=== PATIENT | female | born 1975 | race Two or more races ===

== ENCOUNTER → 2020-06-04 11:28 | Outpatient (BNVA) | payer MEDICAID, SELFPAY | PROVIDERS: PCP Internal Medicine; Referring Provider Internal Medicine; Visit Provider Hospitalist | DX: J45.909 Unspecified asthma, uncomplicated (principal); J30.9 Allergic rhinitis, unspecified; Z79.899 Other long term (current) drug therapy | CPT/HCPCS: 99214 ==

== ENCOUNTER 2020-06-10 09:16 | Outpatient (REF) | payer MEDICAID, SELFPAY ==
--- NOTE | 2020-06-10 09:30 | MR_ITS ---
EXAMINATION: MR KNEE WITHOUT CONTRAST, LEFT CLINICAL INFORMATION: Anterior left knee pain COMPARISON: 05/04/2020 TECHNIQUE: MRI of the knee without contrast was performed using routine sequences on a high-field scanner. FINDINGS: MENISCI: Medial Meniscus: There is mild degenerative intrasubstance signal within the medial meniscus at the junction of the posterior horn and body. No tears. Lateral Meniscus: Intact LIGAMENTS: Cruciate: Intact Collateral: Intact EXTENSOR MECHANISM/TENDONS: Intact. There is increased signal intensity within the origin of the medial head of the gastrocnemius muscle at the posteromedial aspect of the distal tibial metaphysis. No discrete tears. ARTICULAR CARTILAGE/BONE: Patellofemoral Compartment: Tiny marginal osteophytes. Anterior cartilage appears well-preserved. No chondral defects or subchondral marrow signal abnormalities. Medial Compartment: Normal Lateral Compartment: Normal JOINT FLUID AND BURSAE: No joint effusion. A very small thin cystic focus is present at the expected location of a Whitaker's cyst. IMPRESSION: Mild degenerative intrasubstance signal in the medial meniscal body without a discrete meniscal tear. Abnormal edema signal within the medial head of the gastrocnemius at its origin, most consistent with tendinosis or a strain. No tears.
== END 2020-06-10 09:17 | disposition home or self-care (01) ==
LOC: HO.MRI 09:16
PROVIDERS: Visit Provider Student in an Organized Health Care Education/Training Program
DX: M25.562 Pain in left knee (principal)
CPT/HCPCS: 73721

== ENCOUNTER → 2020-08-12 10:12 | Outpatient (BNVA) | payer MEDICAID, SELFPAY | PROVIDERS: PCP Internal Medicine; Referring Provider Internal Medicine; Visit Provider Hospitalist | DX: Z76.89 Persons encountering health services in other specified circumstances (principal) ==

== ENCOUNTER 2020-09-28 07:46 | Outpatient (REF) | payer MEDICAID, SELFPAY ==
--- NOTE | 2020-09-28 07:51 | MM_ITS ---
EXAMINATION: MM SCREENING DIGITAL BREAST TOMOSYNTHESIS, BILATERAL CLINICAL INFORMATION: Screening. Asymptomatic. The lifetime risk of breast cancer based on the Tyrer-Cuzick Model is 6%. COMPARISON: Mammography: 01/15/2019 (baseline) TECHNIQUE: Digital breast tomosynthesis is performed in both the craniocaudal and mediolateral oblique views along with computer-aided detection (CAD). Synthesized 2D images are generated from the tomosynthesis. Additional left MLO view is provided. FINDINGS: The breasts are extremely dense, which lowers the sensitivity of mammography (ACR BI-RADS breast composition Category d). There are no significant masses, abnormal calcifications, or other abnormalities. Parenchymal pattern is similar to prior baseline exam. No significant changes. MM/MM tomosynthesis screening BI IMPRESSION: No mammographic evidence of malignancy. ASSESSMENT: BI-RADS 1: Negative RECOMMENDATION: Routine annual mammography screening. This patient's information was entered into a reminder system with a target due date for their next mammogram.
== END 2020-09-28 07:47 | disposition home or self-care (01) ==
LOC: HO.MAMMO 07:46
PROVIDERS: PCP Internal Medicine; Visit Provider Internal Medicine
DX: Z12.31 Encounter for screening mammogram for malignant neoplasm of breast (principal)
CPT/HCPCS: 77063; 77067

== ENCOUNTER → 2020-10-01 15:10 | Outpatient (BNVA) | payer MEDICAID, SELFPAY | PROVIDERS: PCP Internal Medicine; Visit Provider Hospitalist ==

== ENCOUNTER → 2020-12-29 07:50 | Outpatient (BNVA) | payer MEDICAID, SELFPAY | PROVIDERS: PCP Internal Medicine; Referring Provider Internal Medicine; Visit Provider Student in an Organized Health Care Education/Training Program | DX: M79.7 Fibromyalgia (principal); M47.816 Spondylosis without myelopathy or radiculopathy, lumbar region | CPT/HCPCS: 99212 ==

== ENCOUNTER → 2020-12-31 11:21 | Outpatient (BNVA) | payer MEDICAID, SELFPAY | PROVIDERS: PCP Internal Medicine; Visit Provider Hospitalist | DX: J45.40 Moderate persistent asthma, uncomplicated (principal); J30.9 Allergic rhinitis, unspecified | CPT/HCPCS: 99212 ==

== ENCOUNTER → 2021-02-19 09:37 | Outpatient (BNVA) | payer MEDICAID, SELFPAY | PROVIDERS: PCP Internal Medicine; Visit Provider Hospitalist | DX: J45.40 Moderate persistent asthma, uncomplicated (principal); J30.9 Allergic rhinitis, unspecified; Z79.51 Long term (current) use of inhaled steroids | CPT/HCPCS: 99212 ==

== ENCOUNTER → 2021-04-21 09:48 | Outpatient (BNVA) | payer MEDICAID, SELFPAY | PROVIDERS: PCP Internal Medicine; Visit Provider Hospitalist | DX: J45.40 Moderate persistent asthma, uncomplicated (principal); J30.9 Allergic rhinitis, unspecified | CPT/HCPCS: 99212 ==

== ENCOUNTER → 2021-06-17 09:49 | Outpatient (BNVA) | payer MEDICAID, SELFPAY | PROVIDERS: PCP Internal Medicine; Visit Provider Hospitalist | DX: J45.40 Moderate persistent asthma, uncomplicated (principal); J30.9 Allergic rhinitis, unspecified | CPT/HCPCS: 99212 ==

== ENCOUNTER → 2021-09-23 09:30 | Outpatient (BNVA) | payer MEDICAID, SELFPAY | PROVIDERS: PCP Internal Medicine; Visit Provider Hospitalist | DX: J45.40 Moderate persistent asthma, uncomplicated (principal); J30.9 Allergic rhinitis, unspecified | CPT/HCPCS: 90471; 90686; 99212 ==

== ENCOUNTER 2021-11-05 09:02 | Outpatient (REF) | payer MEDICAID, SELFPAY ==
--- NOTE | ~2021-11-05 | MM_ITS ---
EXAMINATION: MM SCREENING DIGITAL BREAST TOMOSYNTHESIS, BILATERAL CLINICAL INFORMATION: Screening. Asymptomatic. The lifetime risk of breast cancer based on the Tyrer-Cuzick Model is 9%. COMPARISON: Mammography: 09/28/2020, 01/15/2019 (baseline). TECHNIQUE: Digital breast tomosynthesis is performed in both the craniocaudal and mediolateral oblique views along with computer-aided detection (CAD). Synthesized 2D images are generated from the tomosynthesis. FINDINGS: The breasts are extremely dense, which lowers the sensitivity of mammography (ACR BI-RADS breast composition Category d). There are no significant masses, abnormal calcifications, or other abnormalities. There are scattered bilateral asymmetries similar to prior studies. No developing density or interval architectural abnormality. The axilla and skin contours are unremarkable. MM/MM tomosynthesis screening BI IMPRESSION: No mammographic evidence of malignancy. ASSESSMENT: BI-RADS 2: Benign RECOMMENDATION: Routine annual mammography screening. This patient's information was entered into a reminder system with a target due date for their next mammogram.
== END 2021-11-05 09:03 | disposition home or self-care (01) ==
LOC: HO.MAMMO 09:02
PROVIDERS: PCP Internal Medicine; Visit Provider Internal Medicine
DX: Z12.31 Encounter for screening mammogram for malignant neoplasm of breast (principal)
CPT/HCPCS: 77063; 77067

== ENCOUNTER → 2022-01-19 10:08 | Outpatient (BNVA) | payer MEDICAID, SELFPAY | PROVIDERS: PCP Internal Medicine; Visit Provider Hospitalist | DX: J45.40 Moderate persistent asthma, uncomplicated (principal); J30.9 Allergic rhinitis, unspecified | CPT/HCPCS: 99212 ==

== ENCOUNTER → 2022-01-27 08:26 | Outpatient (BNVA) | payer MEDICAID, SELFPAY | PROVIDERS: PCP Internal Medicine; Visit Provider Nurse Practitioner Family | DX: M79.7 Fibromyalgia (principal); M47.816 Spondylosis without myelopathy or radiculopathy, lumbar region; M79.671 Pain in right foot; Z79.899 Other long term (current) drug therapy | CPT/HCPCS: 99212 ==

== ENCOUNTER → 2022-05-13 10:35 | Outpatient (BNVA) | payer MEDICAID, SELFPAY | PROVIDERS: PCP Internal Medicine; Visit Provider Hospitalist | DX: J45.40 Moderate persistent asthma, uncomplicated (principal); J30.9 Allergic rhinitis, unspecified; Z79.899 Other long term (current) drug therapy | CPT/HCPCS: 99212 ==

== ENCOUNTER 2022-05-25 09:15 | Outpatient (REF) | payer MEDICAID, SELFPAY ==
--- NOTE | ~2022-05-25 | CT_ITS ---
EXAMINATION: CT HEAD WITHOUT CONTRAST CLINICAL INFORMATION: Migraine COMPARISON: Previous head CT March 2011 TECHNIQUE: Contiguous axial imaging was performed from the skull base to vertex without intravenous administration of contrast. This CT examination was performed using dose optimization techniques as appropriate, variously including the following: *Automated exposure control *Adjustment of mA and/or kV according to patient size (this includes techniques or standardized protocols for targeted exams where dose is matched to indication/reason for exam; i.e. extremities or head) *Use of iterative reconstruction technique DLP: 718 mGy-cm FINDINGS: There is no evidence of an extra-axial collection. There is no evidence of intra-axial or extra-axial hemorrhage. The ventricles and extra-axial CSF spaces are appropriate. Marie-white matter differentiation is normal. No mass, mass effect or infarct is seen. Review of bone windows is normal. Paranasal sinuses, mastoid air cells and middle ears are clear. CT/CT head/brain wo IV con IMPRESSION: Unremarkable exam.
== END 2022-05-25 09:16 | disposition home or self-care (01) ==
LOC: HO.CT 09:15
PROVIDERS: PCP Internal Medicine; Visit Provider Psychiatry & Neurology Neurology
DX: G43.919 Migraine, unspecified, intractable, without status migrainosus (principal)
CPT/HCPCS: 70450

== ENCOUNTER → 2022-10-21 10:45 | Outpatient (BNVA) | payer MEDICAID, SELFPAY | PROVIDERS: PCP Internal Medicine; Visit Provider Hospitalist | DX: J45.40 Moderate persistent asthma, uncomplicated (principal); J30.9 Allergic rhinitis, unspecified | CPT/HCPCS: 99212 ==

== ENCOUNTER 2022-11-11 09:23 | Outpatient (REF) | payer MEDICAID, SELFPAY ==
--- NOTE | ~2022-11-11 | MM_ITS ---
EXAMINATION: MM SCREENING DIGITAL BREAST TOMOSYNTHESIS, BILATERAL CLINICAL INFORMATION: Screening. Asymptomatic. The lifetime risk of breast cancer based on the Tyrer-Cuzick Model is 6%. COMPARISON: Mammography: 11/05/2021 09/28/2020, 01/15/2019 TECHNIQUE: Digital breast tomosynthesis is performed in both the craniocaudal and mediolateral oblique views along with computer-aided detection (CAD). Synthesized 2D images are generated from the tomosynthesis. FINDINGS: The breasts are extremely dense, which lowers the sensitivity of mammography (ACR BI-RADS breast composition Category d). There are no significant masses, abnormal calcifications, or other abnormalities. Parenchymal pattern is similar to prior studies. There is no developing density or architectural abnormality. The axilla and skin contours are unremarkable. No significant changes. MM/MM tomosynthesis screening BI IMPRESSION: No mammographic evidence of malignancy. ASSESSMENT: BI-RADS 1: Negative RECOMMENDATION: Routine annual mammography screening. This patient's information was entered into a reminder system with a target due date for their next mammogram.
== END 2022-11-11 09:24 | disposition home or self-care (01) ==
LOC: HO.MAMMO 09:23
PROVIDERS: Visit Provider Internal Medicine
DX: Z12.31 Encounter for screening mammogram for malignant neoplasm of breast (principal)
CPT/HCPCS: 77063; 77067

== ENCOUNTER → 2023-01-23 12:46 | Outpatient (BNVA) | payer MEDICAID, SELFPAY | PROVIDERS: PCP Internal Medicine; Visit Provider Nurse Practitioner Family | DX: M79.7 Fibromyalgia (principal); R20.0 Anesthesia of skin; R20.2 Paresthesia of skin | CPT/HCPCS: 99212 ==

== ENCOUNTER → 2023-02-27 09:49 | Outpatient (BNVA) | payer MEDICAID, SELFPAY | PROVIDERS: PCP Internal Medicine; Visit Provider Hospitalist | DX: J45.40 Moderate persistent asthma, uncomplicated (principal); J30.9 Allergic rhinitis, unspecified | CPT/HCPCS: 99212 ==

== ENCOUNTER 2023-07-04 09:29 | Outpatient (AMB) | payer MEDICAID, SELFPAY ==
[2023-07-04 09:56] VITALS: PULSE 70; O2SAT 99; BMI 27.5
--- NOTE | 2023-07-04 09:56 | A.OFFVIS_ITS ---
Intake Vital Signs 07/04/23 09:56 Height 5 ft 4 in Weight 160 lb BMI 27.5 Pulse 70 Pulse Source Pulse Oximeter Pulse Oximetry (%) 99 Oxygen Delivery Method Room Air Intake Visit Reasons: asthma Social Work Instructor Required: No Allergies Penicillins Allergy (Severe, Verified 07/04/23 09:58) Shortness of Breath HPI HPI Comments History of Present Illness Details The patient is a 47 y/o woman with known history of asthma and chronic allergic rhinitis. She has significant nasal congestion moderate severity. She was evaluated by ENT for this ongoing significant issue. Did did not perform a laryngoscopy which would have been helpful. In the meantime she has been started on Xolair to see if this any improvement in the inflammation of her nasal turbinates. we have tried prescribing her Sudafed as a better disease decongestant, however, her insurance does not cover. I did find her a generic Sudafed that she can find for example at [employer] that have be reasonable for her to be able to buy [id number]. She should continue using the Sudafed or generic until I see her and couple months. In the meantime will see the effective Xolair. She does have an increased cough with clear mucus. She does get good response to her respiratory therapy at this time. 10/21/2022 the patient is here for a pulm onary follow-up visit. The patient overall is feeling a lot better. She did take the prednisone the antibiotics and she did improve on while dealing with that so a respiratory illness. She is back to her baseline. The Stiolto in the QVAR inhalers have been very effective for her asthma. She also continues with her allergy medicine. She is continuing Xolair with her supervisor [employer] shop. And she is also using Benadryl as needed. Her nasal congestion has been slowly improving. She never to the Sudafed and at this point she does not need it. Therefore, will continue with current respiratory regimen. We can consider switching her over to a triple inhaler in the past specially since she is on multiple inhalers. But, will hold off on this time specially since she is doing well with what she has. 02/27/2023 the patient is here for pulmon joy follow-up visit. Overall she is doing well. She continues on the Xolair injections. These have been effective. She is not using any allergy shots. She is going to follow up with her supervisor [employer] regarding that issue. She continues to have nasal congestion. She is willing to try this Sudafed. I did give her good Rx card in a prescription in order to try to make it more reasonable for her. In the meantime she continues on Stiolto and QVAR which appeared to be affecting beneficial. Her respiratory exam is fairly normal which is reassuring. No recent imaging or laboratories to review at this time. The patient will continue the current therapy. Will go ahead and send all her prescriptions to the pharmacy 07/04/2023 the patient is here for markel hunter follow-up visit. She recently saw the supervisor [employer] shop and she was having issues with her asthma in addition to his significant chronic rhinitis. She is set for, the recommendation was for her to stop the Xolair and start Tezspire. The patient received 1 shot. She is tolerating it well. She is going to monitor closely her eczema while on the Tezspire. The patient has not seen a significant improvement actually she is having some increased chest tightness. She does have some wheezing on examination. Therefore will go ahead and start her Medrol Miki and also give her on mild antibiotic to treat for the possibility of a infectious process exacerbating her asthma. She continues with current respiratory inhalers. Hopefully she sees improvement with the new biologic. If her symptoms worsen she will call the office for an earlier assessment otherwise will follow-up in 3-4 months. [facility] Medical History Asthma Chronic allergic rhinitis Fibromyalgia Sinusitis Surgical History History of 2 sections History of partial hysterectomy Family History Father Gout Cancer Arthritis of knee HTN (hypertension) Mother Rheumatoid arthritis Thyroid disease COPD (chronic obstructive pulmonary disease) Diabetes HTN (hypertension) Social History Alcohol intake: never Patient Tobacco Use Status: Never used Tobacco Review of Systems Const Denies night sweats ENT Denies change in voice, Denies lip swelling, Denies mouth pain, Reports nasal congestion, Reports nasal discharge, Denies post nasal drip, Denies sinus pain, Denies sinus pressure and Denies tongue swelling Card Denies chest pain and Denies dyspnea on exertion Resp Reports chest congestion, Reports cough, Denies dyspnea on exertion and Reports wheezing GI Denies abdominal pain Musc Denies no additional complaints Neuro Denies Neuro-related abnormal movements Psych Denies no additional complaints Carlos/Lymph Denies easy bleeding and Denies lymphadenopathy Aller/Immun Denies lip swelling, Denies tongue swelling and Reports wheezing Physical Exam Vital Signs: Last Vital Signs Pulse 70 07/04/23 09:56 Pulse Ox 99 07/04/23 09:56 Oxygen Delivery Method Room Air 07/04/23 09:56 BMI result Body Mass Index 27.5 Const General: comfortable Orientation/consciousness: patient oriented x3 Neck Neck: Yes normal visual inspection, Yes full ROM and Yes no lymphadenopathy Chest Chest palpation & inspection: normal inspection of the chest Resp Effort & Inspection: normal respiratory effort and prolonged expiratory phase Auscultation: wheezes and diminished lung sounds Cardio Rate: regular rate Rhythm: regular rhythm Heart sounds: S1 normal heart sound present and S2 normal heart sound present GI Palpation (GI): Soft to palpation and nontender Auscultation: normal bowel sounds Skin General skin exam: rashes and/or lesions noted Neuro General: patient oriented x3 Assessment & Plan Assessment & Plan (1) Asthma: Comment: continue respiratory therapy as prescribed Code(s): J45.909 - Unspecified asthma, uncomplicated Qualifiers: Asthma complication type: uncomplicated Asthma persistence: persistent Asthma severity: moderate Qualified Code(s): J45.40 - Moderate persistent asthma, uncomplicated (2) Chronic allergic rhinitis: Code(s): J30.9 - Allergic rhinitis, unspecified Plan start Medrol pack start Zpack stopped Xolair shot Continue Tezspire continue reflux diet continue Pepcid Continue Stiolto continue QVAR Continue Singulair pseudophed as needed Benadryl as needed F/U 3-4 months Medications: New azithromycin 500 mg PO DAILY 5 days 5 tabs 0RF methylprednisolone (Medrol (Miki)) PO PER PKG DIR 6 days 21 ea 0RF Coding Level of Care Code Est Pt Level 4 (62220) Diagnoses Moderate persistent asthma without complication J45.40 Asthma complication type: uncomplicated Asthma persistence: persistent Asthma severity: moderate Chronic allergic rhinitis J30.9 Time Spent (min) 17
== END 2023-07-04 10:18 | disposition home or self-care (01) ==
PROVIDERS: PCP Internal Medicine; Visit Provider Hospitalist
DX: J45.40 Moderate persistent asthma, uncomplicated (principal); J30.9 Allergic rhinitis, unspecified
CPT/HCPCS: 99214

== ENCOUNTER → 2023-07-04 09:29 | Outpatient (BNVA) | payer MEDICAID, SELFPAY | PROVIDERS: PCP Internal Medicine; Visit Provider Hospitalist | DX: J45.40 Moderate persistent asthma, uncomplicated (principal); J30.9 Allergic rhinitis, unspecified | CPT/HCPCS: 99212 ==

== ENCOUNTER 2023-09-12 10:48 | Outpatient (AMB) | payer MEDICAID, SELFPAY ==
[2023-09-12 10:55] VITALS: BP 116/70; TEMP 35.9; BMI 27.9
--- NOTE | 2023-09-12 10:55 | MHC.OFFVIS ---
Intake Vital Signs 09/12/23 10:55 Height 5 ft 4 in Weight 162 lb 7.691 oz BMI 27.9 BP 116/70 Blood Pressure Location Rt brachial Position Sitting Temp 96.7 F L Temp Source Skin Intake Visit Reasons: Fibromyalgia Intake Note: Patient presents today for follow up. She was last seen 01/23/23 by Aminah and was given 1 yr follow up. She states she has still been experiencing swelling, pain, numbness and tingling on bilateral hands and right arm. Has worsened the last 1 month and a half. She has tried the Tylenol with no relief. She is having trouble sleeping at night. She has been on Gabapentin and Cymbalta in the past, but states these were stopped by Aminah because she was doing well. Home Theatre Technician Required: Yes Home Theatre Technician Name: Lane Love [id number] Information Interpreted: clinical only Accompanied by: Self / Same As Patient Allergies Penicillins Allergy (Severe, Verified 09/12/23 10:58) Shortness of Breath Medication List - Last Reconciled 09/12/23 by Niko Rader MD albuterol sulfate 90 mcg/actuation (Ventolin HFA) 2 puffs PO Q6H PRN 30 days albuterol sulfate 2.5 mg (3 mL) PO Q4H PRN azelastine 2 sprays intranasal BID beclomethasone dipropionate 80 mcg/actuation (Qvar RediHaler) 2 inhalations PO BID beclomethasone dipropionate 80 mcg/actuation (QNASL) 2 sprays intranasal DAILY 30 days benzonatate 200 mg PO BID PRN bupropion HCl 300 mg PO QAM bupropion HCl 150 mg PO QAM clonazepam 1 mg PO DAILY [cock up splint wear at night ] diphenhydramine HCl (Banophen) 25 mg PO DAILY PRN divalproex 500 mg PO BID epinephrine 0.3 mg (0.3 mL) IM DIRECTED famotidine 40 mg PO BEDTIME hydroxyzine pamoate 25 mg PO Q6H PRN ipratropium bromide 2 sprays intranasal TID PRN loratadine 10 mg PO DAILY 30 days lurasidone (Latuda) 60 mg PO DAILY lurasidone 80 mg PO QPM methylprednisolone (Medrol (Miki)) PO PER PKG DIR 6 days mometasone 50 mcg/actuation 2 sprays intranasal DAILY 30 days montelukast 10 mg PO BEDTIME nebulizers As directed nortriptyline 10 mg PO DAILY omeprazole 20 mg PO DAILY 90 days pseudoephedrine HCl 60 mg PO Q4-6H PRN 30 days tezepelumab-ekko (Tezspire) mg subcut tiotropium-olodaterol 2.5-2.5 mcg/actuation (Stiolto Respimat) 2 puffs inhalation DAILY 30 days triamcinolone acetonide 0.1% appl topical BID zolpidem (Ambien) 10 mg PO BEDTIME PRN zolpidem ER 12.5 mg PO BEDTIME HPI HPI Comments History of Present Illness Details This is a 47-year-old female who presents for follow-up. She was last seen by Gabrielle Latif 01/2023. She states that she has left shoulder pain and left upper extremity numbness, usually worse at night. She also has tingling and numbness of both her hands, worse on the left. She states that she has had an MRI of her left shoulder and nerve conduction studies of her hands in the past which showed carpal tunnel syndrome and tendonitis of the left shoulder. She was referred to PT but she attended only 1 session as she did not like how it felt. She does not recall ever getting any cortisone injections. Wrists splints were prescribed by Gabrielle bautista last visit but patient stated that her insurance would not cover it. [facility] Medical History Fibromyalgia Sinusitis Asthma Chronic allergic rhinitis Surgical History History of 2 sections History of partial hysterectomy Family History Father Gout Cancer Arthritis of knee HTN (hypertension) Mother Rheumatoid arthritis Thyroid disease COPD (chronic obstructive pulmonary disease) Diabetes HTN (hypertension) Social History Alcohol intake: never Patient Tobacco Use Status: Never used Tobacco Review of Systems Musc Reports arthralgias, Reports limited range of motion, Reports numbness and Reports tingling Neuro Reports numbness and Reports tingling Physical Exam Vital Signs: Last Vital Signs Temp 96.7 F L 09/12/23 10:55 BP 116/70 09/12/23 10:55 BMI result Body Mass Index 27.9 Const General: cooperative, healthy appearing and comfortable Nutritional Appearance: overweight Orientation/consciousness: patient oriented x3 Limitations: no limitations HEENT Head: Yes normocephalic and Yes atraumatic Resp Effort & Inspection: normal respiratory effort and able to speak in complete sentences Skin General skin exam: no rashes or lesions noted Neuro General: patient oriented x3 Extrem Other: Osteoarthritic changes of both hands without synovitis Positive Tinel sign on the left and tenderness along the left 1st CMC joint. Equivocal Sherrie's test on the left Painful range of motion of left shoulder with positive empty can test, infraspinatus test and lift-off test Negative Spurling's test bilaterally Assessment & Plan Assessment & Plan (1) Rotator cuff arthropathy of left shoulder: Code(s): M12.812 - Other specific arthropathies, not elsewhere classified, left shoulder Plan: Left shoulder MRI in 2014 showed signs of rotator cuff tendinosis. Patient went to PT 1 session and did not like how it felt. She is not interested in steroid injections. Referred patient to Orthopedics (2) Carpal tunnel syndrome of left wrist: Code(s): G56.02 - Carpal tunnel syndrome, left upper limb Plan: She stated that her insurance would not cover wrist splints. Referred to hand surgeon Plan I spent 17 minutes reviewing patient's chart, evaluating patient, placing orders, counseling patient and documenting in the chart Orders: Referrals Orthopedics Referral M12.812 - Other specific arthropathies, not elsewhere classified, left shoulder Hand Surgery Referral G56.02 - Carpal tunnel syndrome, left upper limb Coding Level of Care Code Est Pt Level 3 (87667) Diagnoses Rotator cuff arthropathy of left shoulder M12.812 Carpal tunnel syndrome of left wrist G56.02
== END 2023-09-12 11:28 | disposition home or self-care (01) ==
PROVIDERS: PCP Internal Medicine; Visit Provider Student in an Organized Health Care Education/Training Program
DX: M12.812 Other specific arthropathies, not elsewhere classified, left shoulder (principal); G56.02 Carpal tunnel syndrome, left upper limb
CPT/HCPCS: 99213

== ENCOUNTER → 2023-09-12 10:48 | Outpatient (BNVA) | payer MEDICAID, SELFPAY | PROVIDERS: PCP Internal Medicine; Visit Provider Student in an Organized Health Care Education/Training Program | DX: M12.812 Other specific arthropathies, not elsewhere classified, left shoulder (principal); G56.02 Carpal tunnel syndrome, left upper limb | CPT/HCPCS: 99212 ==

== ENCOUNTER 2023-09-15 09:54 | Outpatient (AMB) | payer MEDICAID, SELFPAY ==
--- NOTE | 2023-09-15 10:16 | A.OFFVIS_ITS ---
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 She has significant nasal congestion moderate severity. She was evaluated by ENT for this ongoing significant issue. Did did not perform a laryngoscopy which would have been helpful. In the meantime she has been started on Xolair to see if this any improvement in the inflammation of her nasal turbinates. we have tried prescribing her Sudafed as a better disease decongestant, however, her insurance does not cover. I did find her a generic Sudafed that she can find for example at [employer] that have be reasonable for her to be able to buy [id number]. She should continue using the Sudafed or generic until I see her and couple months. In the meantime will see the effective Xolair. She does have an increased cough with clear mucus. She does get good response to her respiratory therapy at this time. 10/21/2022 the patient is here for a pulm onary follow-up visit. The patient overall is feeling a lot better. She did take the prednisone the antibiotics and she did improve on while dealing with that so a respiratory illness. She is back to her baseline. The Stiolto in the QVAR inhalers have been very effective for her asthma. She also continues with her allergy medicine. She is continuing Xolair with her biometrics analyst. And she is also using Benadryl as needed. Her nasal congestion has been slowly improving. She never to the Sudafed and at this point she does not need it. Therefore, will continue with current respiratory regimen. We can consider switching her over to a triple inhaler in the past specially since she is on multiple inhalers. But, will hold off on this time specially since she is doing well with what she has. 02/27/2023 the patient is here for pulmon joy follow-up visit. Overall she is doing well. She continues on the Xolair injections. These have been effective. She is not using any allergy shots. She is going to follow up with her biometrics analyst regarding that issue. She continues to have nasal congestion. She is willing to try this Sudafed. I did give her good Rx card in a prescription in order to try to make it more reasonable for her. In the meantime she continues on Stiolto and QVAR which appeared to be affecting beneficial. Her respiratory exam is fairly normal which is reassuring. No recent imaging or laboratories to review at this time. The patient will continue the current therapy. Will go ahead and send all her prescriptions to the pharmacy 07/04/2023 the patient is here for pular nary follow-up visit. She recently saw the biometrics analyst and she was having issues with her asthma in addition to his significant chronic rhinitis. She is set for, the recommendation was for her to stop the Xolair and start Tezspire. The patient received 1 shot. She is tolerating it well. She is going to monitor closely her eczema while on the Tezspire. The patient has not seen a significant improvement actually she is having some increased chest tightness. She does have some wheezing on examination. Therefore will go ahead and start her Medrol Miki and also give her on mild antibiotic to treat for the possibility of a infectious process exacerbating her asthma. She continues with current respiratory inhalers. Hopefully she sees improvement with the new biologic. If her symptoms worsen she will call the office for an earlier assessment otherwise will follow-up in 3-4 months. 09/15/2023 the [facility] is [facility]. Her breathing has gotten worse since her QVAR has not been provided from the pharmacy. Apparently she needs a prior approval now after the year started. We did submitted and should be answered back in 24 hours. The meantime I did give the patient some prednisone in case her symptoms worsen she can always start that. She does continue to use the Stiolto. She also responded well to the triple inhaler in the past, [facility] but was not cover. We can also send her back to [facility] to see if this covered now. She continues to have significant nasal congestion and difficulty breathing. She has been on the Tezspire now injection about 3 months. She has not seen any significant improvement of the breathing. She will follow-up with allergy in the next few months to see if his something she is going to continue. We talked about the importance. She is willing to try small dose Sudafed. Eighty be [id number] therefore I did give her the recommendation to either start with 30 mg 60 mg and just see if that provides some relief with her significant nasal congestion. She has been evaluated by ENT in the past and did did not want to intervene. [facility] Medical History Fibromyalgia Sinusitis Asthma Chronic allergic rhinitis Surgical History History of 2 sections History of partial hysterectomy Family History Father Gout Cancer Arthritis of knee HTN (hypertension) Mother Rheumatoid arthritis Thyroid disease COPD (chronic obstructive pulmonary disease) Diabetes HTN (hypertension) Social History Alcohol intake: never Patient Tobacco Use Status: Never used Tobacco Review of Systems Const Denies night sweats ENT Denies change in voice, Denies lip swelling, Denies mouth pain, Reports nasal congestion, Reports nasal discharge, Denies post nasal drip, Denies sinus pain, Denies sinus pressure and Denies tongue swelling Card Denies chest pain and Denies dyspnea on exertion Resp Reports chest congestion, Reports cough, Denies dyspnea on exertion and Reports wheezing GI Denies abdominal pain Musc Denies no additional complaints Neuro Denies Neuro-related abnormal movements Psych Denies no additional complaints Carlos/Lymph Denies easy bleeding and Denies lymphadenopathy Aller/Immun Denies lip swelling, Denies tongue swelling and Reports wheezing Physical Exam Vital Signs: Last Vital Signs Pulse 72 09/15/23 10:17 Pulse Ox 98 09/15/23 10:17 Oxygen Delivery Method Room Air 09/15/23 10:17 BMI result Body Mass Index 27.9 Const General: comfortable Orientation/consciousness: patient oriented x3 Neck Neck: Yes normal visual inspection, Yes full ROM and Yes no lymphadenopathy Chest Chest palpation & inspection: normal inspection of the chest Resp Effort & Inspection: normal respiratory effort and prolonged expiratory phase Auscultation: wheezes and diminished lung sounds Cardio Rate: regular rate Rhythm: regular rhythm Heart sounds: S1 normal heart sound present and S2 normal heart sound present GI Palpation (GI): Soft to palpation and nontender Auscultation: normal bowel sounds Skin General skin exam: rashes and/or lesions noted Neuro General: patient oriented x3 Assessment & Plan Assessment & Plan (1) Asthma: Code(s): J45.909 - Unspecified asthma, uncomplicated Qualifiers: Asthma complication type: uncomplicated Asthma persistence: persistent Asthma severity: moderate Qualified Code(s): J45.40 - Moderate persistent asthma, uncomplicated (2) Chronic allergic rhinitis: Code(s): J30.9 - Allergic rhinitis, unspecified Plan Continue Tezspire, should reassess after 6 months of therapy 3/6 continue reflux diet continue Pepcid Continue Stiolto continue QVAR Continue Singulair start pseudophed as needed prednisone if no better Benadryl as needed F/U 3-4 months Medications: New prednisone PO daily; Take 2 tabs daily x 5 days, then 1 tablet daily x 5 days 10 days 15 tabs 0RF Coding Level of Care Code Est Pt Level 4 (58066) Diagnoses Moderate persistent asthma without complication J45.40 Asthma complication type: uncomplicated Asthma persistence: persistent Asthma severity: moderate Chronic allergic rhinitis J30.9 Time Spent (min) 16
[2023-09-15 10:17] VITALS: PULSE 72; O2SAT 98; BMI 27.9
== END 2023-09-15 10:38 | disposition home or self-care (01) ==
PROVIDERS: PCP Internal Medicine; Referring Provider Internal Medicine; Visit Provider Hospitalist
DX: J45.40 Moderate persistent asthma, uncomplicated (principal); J30.9 Allergic rhinitis, unspecified
CPT/HCPCS: 99214

== ENCOUNTER → 2023-09-15 09:54 | Outpatient (BNVA) | payer MEDICAID, SELFPAY | PROVIDERS: PCP Internal Medicine; Visit Provider Hospitalist | DX: J45.40 Moderate persistent asthma, uncomplicated (principal); J30.9 Allergic rhinitis, unspecified; Z79.899 Other long term (current) drug therapy | CPT/HCPCS: 99212 ==

== ENCOUNTER 2023-11-13 09:57 | Outpatient (REF) | payer MEDICAID, SELFPAY | END 2023-11-13 09:58 | disposition home or self-care (01) | LOC: HO.MAMMO 09:57 | PROVIDERS: Visit Provider Internal Medicine | DX: Z12.31 Encounter for screening mammogram for malignant neoplasm of breast (principal) | CPT/HCPCS: 77063; 77067 ==

== ENCOUNTER → 2023-11-13 10:30 | Outpatient (BNV) | payer MEDICAID, SELFPAY | PROVIDERS: Visit Provider Radiology Diagnostic Radiology | DX: Z12.31 Encounter for screening mammogram for malignant neoplasm of breast (principal) | CPT/HCPCS: 77063; 77067 ==

== ENCOUNTER 2023-11-22 08:39 | Outpatient (AMB) | payer MEDICAID, SELFPAY ==
[2023-11-22 09:02] VITALS: PULSE 78; O2SAT 91; BMI 27.9
--- NOTE | 2023-11-22 09:02 | A.OFFVIS_ITS ---
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 She has significant nasal congestion moderate severity. She was evaluated by ENT for this ongoing significant issue. Did did not perform a laryngoscopy which would have been helpful. In the meantime she has been started on Xolair to see if this any improvement in the inflammation of her nasal turbinates. we have tried prescribing her Sudafed as a better disease decongestant, however, her insurance does not cover. I did find her a generic Sudafed that she can find for example at [employer] that have be reasonable for her to be able to buy [id number]. She should continue using the Sudafed or generic until I see her and couple months. In the meantime will see the effective Xolair. She does have an increased cough with clear mucus. She does get good response to her respiratory therapy at this time. 10/21/2022 the patient is here for a pulm onary follow-up visit. The patient overall is feeling a lot better. She did take the prednisone the antibiotics and she did improve on while dealing with that so a respiratory illness. She is back to her baseline. The Stiolto in the QVAR inhalers have been very effective for her asthma. She also continues with her allergy medicine. 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 And she is also using Benadryl as needed. Her nasal congestion has been slowly improving. She never to the Sudafed and at this point she does not need it. Therefore, will continue with current respiratory regimen. We can consider switching her over to a triple inhaler in the past specially since she is on multiple inhalers. But, will hold off on this time specially since she is doing well with what she has. 02/27/2023 the patient is here for pulmon joy follow-up visit. Overall she is doing well. She continues on the Xolair injections. These have been effective. She is not using any allergy shots. She is going to follow up with her airplane pilot photogrammetry regarding that issue. She continues to have nasal congestion. She is willing to try this Sudafed. I did give her good Rx card in a prescription in order to try to make it more reasonable for her. In the meantime she continues on Stiolto and QVAR which appeared to be affecting beneficial. Her respiratory exam is fairly normal which is reassuring. No recent imaging or laboratories to review at this time. The patient will continue the current therapy. Will go ahead and send all her prescriptions to the pharmacy 07/04/2023 the patient is here for [facility] follow-up visit. She recently saw the airplane pilot photogrammetry and she was having issues with her asthma in addition to his significant chronic rhinitis. She is set for, the recommendation was for her to stop the Xolair and start Tezspire. The patient received 1 shot. She is tolerating it well. She is going to monitor closely her eczema while on the Tezspire. The patient has not seen a significant improvement actually she is having some increased chest tightness. She does have some wheezing on examination. Therefore will go ahead and start her Medrol Miki and also give her on mild antibiotic to treat for the possibility of a infectious process exacerbating her asthma. She continues with current respiratory inhalers. Hopefully she sees improvement with the new biologic. If her symptoms worsen she will call the office for an earlier assessment otherwise will follow-up in 3-4 months. 09/15/2023 [facility]. Her breathing has gotten worse since her QVAR has not been provided from the pharmacy. Apparently she needs a prior approval now after the year started. We did submitted and should be answered back in 24 hours. The meantime I did give the patient some prednisone in case her symptoms worsen she can always start that. She does continue to use the Stiolto. She also responded well to the triple inhaler in the past, [facility]leg[facility] but was not cover. We can also send her back to [facility] to see if this covered now. She continues to have significant nasal congestion and difficulty breathing. She has been on the Tezspire now injection about 3 months. She has not seen any significant improvement of the breathing. She will follow-up with allergy in the next few months to see if his something s he is going to continue. We talked about the importance. She is willing to try small dose Sudafed. Eighty be [id number] therefore I did give her the recommendation to either start with 30 mg 60 mg and just see if that provides some relief with her significant nasal congestion. She has been evaluated by ENT in the past and did did not want to intervene. 11/22/2023 the patient is here for a pulm onary follow-up visit. The patient has been complaining of worsening respiratory symptoms for last couple days. She had been doing well. She still complains of the chronic sinusitis. However, she did take the Sudafed finally but it caused some stomach upset so therefore she stopped it. It did clear some her sinuses however. The patient now is having some nasal congestion sore throat and worsening cough. She feels like she has a cold. Denies any joint pains or flu-like symptoms. She really does not want to get a swab done for the flu right now. Her respiratory exam is fairly good she does have diminished breath sounds with a prolonged expiratory phase. No significant wheezing. No crackles suggest pneumonia. Will go ahead and treat her for an upper airway respiratory illness. If the patient is no better she can take some prednisone but at this point she does not need it. She did have evaluation with allergy and immunology. The patient will undergo allergy testing soon. I did encourage him not to take the prednisone that she gets worse because is going to affect the results of her allergy testing. She continues on the biologic therapy once she has her testing completed she will talk to the airplane pilot photogrammetry about any changes on her biologic regimen. [facility] Medical History Fibromyalgia Sinusitis Asthma Chronic allergic rhinitis Surgical History History of 2 sections History of partial hysterectomy Family History Father Gout Cancer Arthritis of knee HTN (hypertension) Mother Rheumatoid arthritis Thyroid disease COPD (chronic obstructive pulmonary disease) Diabetes HTN (hypertension) Social History Alcohol intake: never Patient Tobacco Use Status: Never used Tobacco Review of Systems Const Denies night sweats ENT Denies change in voice, Denies lip swelling, Denies mouth pain, Reports nasal congestion, Reports nasal discharge, Denies post nasal drip, Denies sinus pain, Denies sinus pressure and Denies tongue swelling Card Denies chest pain and Denies dyspnea on exertion Resp Reports chest congestion, Reports cough, Denies dyspnea on exertion and Reports wheezing GI Denies abdominal pain Musc Denies no additional complaints Neuro Denies Neuro-related abnormal movements Psych Denies no additional complaints Carlos/Lymph Denies easy bleeding and Denies lymphadenopathy Aller/Immun Denies lip swelling, Denies tongue swelling and Reports wheezing Physical Exam Vital Signs: Last Vital Signs Pulse 78 11/22/23 09:02 Pulse Ox 91 L 11/22/23 09:02 Oxygen Delivery Method Room Air 11/22/23 09:02 BMI result Body Mass Index 27.9 Const General: comfortable Orientation/consciousness: patient oriented x3 Neck Neck: Yes normal visual inspection, Yes full ROM and Yes no lymphadenopathy Chest Chest palpation & inspection: normal inspection of the chest Resp Effort & Inspection: normal respiratory effort and prolonged expiratory phase Auscultation: wheezes and diminished lung sounds Cardio Rate: regular rate Rhythm: regular rhythm Heart sounds: S1 normal heart sound present and S2 normal heart sound present GI Palpation (GI): Soft to palpation and nontender Auscultation: normal bowel sounds Skin General skin exam: rashes and/or lesions noted Neuro General: patient oriented x3 Assessment & Plan Assessment & Plan (1) Asthma: Code(s): J45.909 - Unspecified asthma, uncomplicated Qualifiers: Asthma complication type: with acute exacerbation Asthma persistence: persistent Asthma severity: moderate Qualified Code(s): J45.41 - Moderate persistent asthma with (acute) exacerbation (2) Chronic allergic rhinitis: Code(s): J30.9 - Allergic rhinitis, unspecified (3) Bronchitis: Code(s): J40 - Bronchitis, not specified as acute or chronic Plan Continue Tezspire, should reassess after 6 months of therapy 3/6 Allergy testing with [employer] Prednisone only if worsens Mucinex DM continue reflux diet continue Pepcid Continue Stiolto continue QVAR Continue Singulair Benadryl as needed F/U 3-4 months Medications: New azithromycin 500 mg PO DAILY 5 days 5 tabs 0RF dextromethorphan-guaifenesin 60-1,200 mg ER (Mucinex DM) 1 tab PO Q12H 14 days 28 tabs 4RF Refilled prednisone PO daily; Take 2 tabs daily x 5 days, then 1 tablet daily x 5 days 10 days 15 tabs 0RF albuterol sulfate 2.5 mg (3 mL) PO Q4H PRN 150 mL 11RF for wheezing Coding Level of Care Code Est Pt Level 4 (02770) Diagnoses Moderate persistent asthma with acute exacerbation J45.41 Asthma complication type: with acute exacerbation Asthma persistence: persistent Asthma severity: moderate Chronic allergic rhinitis J30.9 Bronchitis J40 Time Spent (min) 17
== END 2023-11-22 09:21 | disposition home or self-care (01) ==
PROVIDERS: PCP Internal Medicine; Visit Provider Hospitalist
DX: J45.41 Moderate persistent asthma with (acute) exacerbation (principal); J30.9 Allergic rhinitis, unspecified; J40 Bronchitis, not specified as acute or chronic
CPT/HCPCS: 99214

== ENCOUNTER → 2023-11-22 08:39 | Outpatient (BNVA) | payer MEDICAID, SELFPAY | PROVIDERS: PCP Internal Medicine; Visit Provider Hospitalist | DX: J45.41 Moderate persistent asthma with (acute) exacerbation (principal); J40 Bronchitis, not specified as acute or chronic | CPT/HCPCS: 99212 ==

== ENCOUNTER 2023-11-29 09:32 | Outpatient (AMB) | payer MEDICAID, SELFPAY ==
--- NOTE | 2023-11-29 09:41 | A.OFFVIS_ITS ---
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 States symptoms have been present for 5-6 years and has worsen. Patient states she has tried bracing but no relief. Symptoms are worse at night time and in the morning. Last EMG study was done more than 5 years ago. 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 She complains of numbness in all digits of her left hand. Symptoms intermittent, primarily at night, occasionally throughout the day. She also complains of numbness from her shoulder down her left arm, as well as shoulder pain. She says these symptoms are worse at night, and she has less pain during the day. She reports some occasional numbness in her right hand. She says this has been present for ~6 years now. She had a NCS done in ~2019 that showed carpal tunnel syndrome, but denies any prior treatment. She has a hx of left RTC arthropathy and Fibromyalgia. She follows with Rheumatology for these conditions. She is on Lurasidone and several other anti-depressants. 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 Review of Systems Const All systems reviewed & are unremarkable except as noted in HPI and below Physical Exam Vital Signs: BMI result Body Mass Index 27.8 Const General: cooperative, healthy appearing and no acute distress Orientation/consciousness: patient oriented x3 HEENT Head: Yes normocephalic and Yes atraumatic Eyes EOM: EOMs intact bilaterally Resp Effort & Inspection: normal respiratory effort and able to speak in complete sentences Cardio Jugular venous distension: no JVD Skin General skin exam: turgor normal Rashes: no rashes Neuro General: patient oriented x3 Extrem Other: Evaluation of Left Upper Extremity: The patient is alert, oriented, and in no acute distress Neuro: Median, Ulnar, Radial nerves motor and sensory intact No thenar or intrinsic wasting Good APB muscle belly firing and good finger cross Vascular: Cap refill brisk ROM: She can make a fist and extend all her digits No locking or catching Skin: No lacerations or abrasions. General: No Ecchymosis. No Erythema or evidence of infection. Psych Appearance: grossly normal Affect: normal affect Attitude: cooperative Assessment & Plan Assessment & Plan (1) Numbness of left hand: Code(s): R20.0 - Anesthesia of skin (2) Fibromyalgia: Code(s): M79.7 - Fibromyalgia (3) Numbness of right hand: Code(s): R20.0 - Anesthesia of skin (4) Rotator cuff arthropathy of left shoulder: Code(s): M12.812 - Other specific arthropathies, not elsewhere classified, left shoulder Plan Assessment & Plan: 1. Bilateral hand numbness In all digits, worse in the left Symptoms intermittent, but nightly, occasionally throughout the day She also complains of numbness and pain radiating from her left shoulder distally, primarily at night I educated her about this condition I ordered a NCS to assess for peripheral nerve compression She will follow up when completed for review Scribed for Gabrielle Sahu MD by Carlos Miranda, medical biller/coder, on 11/29/23 at 10:15 AM, EST. Orders: Orders NE nerve conduction velocity Today R20.0 - Anesthesia of skin, R20.2 - Paresthesia of skin Coding Level of Care Code New Pt Level 3 (27187) Diagnoses Numbness of left hand R20.0 Fibromyalgia M79.7 Numbness of right hand R20.0 Rotator cuff arthropathy of left shoulder M12.812
[2023-11-29 09:45] VITALS: BMI 27.8
== END 2023-11-29 10:20 | disposition home or self-care (01) ==
PROVIDERS: PCP Internal Medicine; Visit Provider Orthopaedic Surgery
DX: R20.0 Anesthesia of skin (principal); M79.7 Fibromyalgia; M12.812 Other specific arthropathies, not elsewhere classified, left shoulder
CPT/HCPCS: 99203

== ENCOUNTER → 2023-11-29 09:32 | Outpatient (BNVA) | payer MEDICAID, SELFPAY | PROVIDERS: PCP Internal Medicine; Visit Provider Orthopaedic Surgery | DX: R20.0 Anesthesia of skin (principal); M79.7 Fibromyalgia; M12.812 Other specific arthropathies, not elsewhere classified, left shoulder | CPT/HCPCS: 99202 ==

== ENCOUNTER 2023-12-15 08:20 | Outpatient (REF) | payer MEDICAID, SELFPAY ==
--- NOTE | 2023-12-15 08:23 | EMG_ITS ---
Chief complaint: Left arm pain, bilateral hand numbness left worse than right Reason for referral: Evaluate for Carpal Tunnel Syndrome versus radiculopathy Referred by: Dr. Sahu Procedure done: Bilateral upper extremities NCS/EMG Precautions and/or limitations: None Honduran speaking, seen with document processing specialist. The limb temperature was monitored continuously and remained between 32-36 degrees C during the performance of the NCS. Nerve Conduction Studies Anti Sensory Summary Table ?Stim Site NR Onset (ms) Norm Onset (ms) Peak (ms) Norm Peak (ms) O-P Amp (?V) Norm O-P Amp Site1 Site2 Delta-0 (ms) Dist (cm) [place] (m/s) Norm [place] (m/s) Left Median Anti Sensory (2nd Digit) Wrist ? 2.8 3.6 <3.6 19.9 >10 Wrist 2nd Digit 2.8 14.0 50 Right Median Anti Sensory (2nd Digit) Wrist ? 2.3 3.1 <3.6 17.8 >10 Wrist 2nd Digit 2.3 14.0 61 Left Ulnar Anti Sensory (5th Digit) Wrist ? 2.1 2.7 <3.7 29.0 >15.0 Wrist 5th Digit 2.1 14.0 67 Right Ulnar Anti Sensory (5th Digit) Wrist ? 1.6 2.4 <3.7 15.2 >15.0 Wrist 5th Digit 1.6 14.0 88 Motor Summary Table ?Stim Site NR Onset (ms) Norm Onset (ms) O-P Amp (mV) Norm O-P Amp iAmp (mV) Amp (1st) (%) Site1 Site2 Delta-0 (ms) Dist (cm) [place] (m/s) Norm [place] (m/s) Left Median Motor (Abd Poll Brev) Wrist ? 4.2 <3.9 4.9 >4.5 5.6 100.0 Elbow Wrist 3.5 21.0 60 >45 Elbow ? 7.7 3.5 4.0 71.4 Right Median Motor (Abd Poll Brev) Wrist ? 3.3 <3.9 8.9 >4.5 10.1 100.0 Elbow Wrist 3.6 21.0 58 >45 Elbow ? 6.9 8.5 9.6 95.5 Left Ulnar Motor (Abd Dig Minimi) Wrist ? 2.2 <3.0 5.9 >5 7.7 100.0 B Elbow Wrist 2.7 18.5 69 >45 B Elbow ? 4.9 5.7 7.7 96.6 A Elbow B Elbow 1.4 10.0 71 >45 A Elbow ? 6.3 5.6 7.3 94.9 Right Ulnar Motor (Abd Dig Minimi) Wrist ? 2.3 <3.0 7.3 >5 9.0 100.0 B Elbow Wrist 2.8 19.5 70 >45 B Elbow ? 5.1 7.5 9.2 102.7 A Elbow B Elbow 1.2 0.0 >45 A Elbow ? 6.3 7.5 9.1 102.7 Comparison Summary Table ?Stim Site NR Peak (ms) Norm Peak (ms) P-T Amp (?V) Site1 Site2 Delta-P (ms) Norm Delta (ms) Right Median/Radial Dig I Comparison (Digit 1 - 10cm) Median ? 2.6 <2.9 23.0 Median Radial 0.6 Radial ? 2.0 <2.8 20.8 Stim Site NR Peak (ms) Norm Peak (ms) P-T Amp (?V) Site1 Site2 Delta-P (ms) Norm Delta (ms) Left Median/Radial Dig I Comparison (Digit 1 - 10cm) Median ? 3.2 <2.9 18.9 Median Radial 1.0 Radial ? 2.2 <2.8 24.9 EMG ?Side Muscle Nerve Root Ins Act Fibs Psw Amp Dur Poly Recrt Int Pat Comment Right 1stDorInt Ulnar C8-T1 Nml Nml Nml Nml Nml 0 Nml Complete Right FlexCarRad Median C6-7 Nml Nml Nml Nml Nml 0 Nml Complete Right Biceps Musculocut C5-6 Nml Nml Nml Nml Nml 0 Nml Complete Right Triceps Radial C6-7-8 Nml Nml Nml Nml Nml 0 Nml Complete Right Deltoid Axillary C5-6 Nml Nml Nml Nml Nml 0 Nml Complete Left 1stDorInt Ulnar C8-T1 Nml Nml Nml Nml Nml 0 Nml Complete Left FlexCarRad Median C6-7 Nml Nml Nml Nml Nml 0 Nml Complete Left Biceps Musculocut C5-6 Nml Nml Nml Nml Nml 0 Nml Complete Left Triceps Radial C6-7-8 Nml Nml Nml Nml Nml 0 Nml Complete Left Deltoid Axillary C5-6 Nml Nml Nml Nml Nml 0 Nml Complete FINDINGS: Left median motor nerve showed prolonged distal latency, normal amplitude and normal conduction velocity. Left median sensory nerve showed borderline peak latency. Significant interlatency difference seen between median and radial sensory nerves, bilateral. All other nerves tested were within normal. Concentric needle EMG was performed in selected muscles of the bilateral upper extremities. Study delete did not reveal signs of electric abnormalities as shown in the table below. IMPRESSION: 1. This is an abnormal study. 2. There is electrodiagnostic evidence for left moderate-severe and right mild/borderline median neuropathy at the wrist, consistent with carpal tunnel syndrome. 3. There is no electrodiagnostic evidence for ulnar neuropathy, brachial plexopathy, or cervical radiculopathy. Thank you for your kind referral. Evelina Olguin MD, CHANDRAKANT Board Certified, [place] [employer] and Rehabilitation (ABPMR) Board Certified, [place] Board of Electrodiagnostic Medicine (ABEM) CODIN [id number] x 2 MTDD
== END 2023-12-15 08:21 | disposition home or self-care (01) ==
LOC: HO.NEURO 08:20
PROVIDERS: PCP Internal Medicine; Visit Provider Orthopaedic Surgery
DX: R20.0 Anesthesia of skin (principal); R20.2 Paresthesia of skin
CPT/HCPCS: 95886; 95911

== ENCOUNTER → 2023-12-15 08:23 | Outpatient (BNV) | payer MEDICAID, SELFPAY | PROVIDERS: PCP Internal Medicine; Visit Provider Physical Medicine & Rehabilitation | DX: G56.03 Carpal tunnel syndrome, bilateral upper limbs (principal); G56.13 Other lesions of median nerve, bilateral upper limbs | CPT/HCPCS: 95886; 95911 ==

== ENCOUNTER 2024-02-28 09:48 | Outpatient (AMB) | payer MEDICAID, SELFPAY ==
--- NOTE | 2024-02-28 10:10 | A.OFFVIS_ITS ---
Vital Signs 02/28/24 10:11 Height 5 ft 4 in Weight 149 lb 14.629 oz BMI 25.7 BP 128/60 Blood Pressure Location Rt brachial Position Sitting Intake Visit Reasons: Fibromyalgia/LVM Intake Note: Pt seen today for follow up. Reports flare up for approx 1week. Batter Mixer Required: Yes Batter Mixer Name: Lara [id number] Accompanied by: Self / Same As Patient Allergies Penicillins Allergy (Severe, Verified 02/28/24 10:18) Shortness of Breath Medication List - Last Reconciled 02/28/24 by Niko Rader MD albuterol sulfate 90 mcg/actuation (Ventolin HFA) 2 puffs PO Q6H PRN 30 days albuterol sulfate 2.5 mg (3 mL) PO Q4H PRN azelastine 2 sprays intranasal BID beclomethasone dipropionate 80 mcg/actuation (Qvar RediHaler) 2 inhalations PO BID beclomethasone dipropionate 80 mcg/actuation (QNASL) 2 sprays intranasal DAILY 30 days bupropion HCl XL 300 mg PO QAM bupropion HCl XL 150 mg PO QAM clonazepam 1 mg PO DAILY [cock up splint wear at night ] dextromethorphan-guaifenesin 60-1,200 mg ER (Mucinex DM) 1 tab PO Q12H 14 days diphenhydramine HCl (Banophen) 25 mg PO DAILY PRN divalproex 500 mg PO BID epinephrine 0.3 mg (0.3 mL) IM DIRECTED famotidine 40 mg PO BEDTIME hydroxyzine pamoate 25 mg PO Q6H PRN ipratropium bromide 2 sprays intranasal TID PRN loratadine 10 mg PO DAILY 30 days lurasidone (Latuda) 60 mg PO DAILY lurasidone 80 mg PO QPM mometasone 50 mcg/actuation 2 sprays intranasal DAILY 30 days montelukast 10 mg PO BEDTIME nebulizers As directed nortriptyline 10 mg PO DAILY omeprazole 20 mg PO DAILY 90 days pseudoephedrine HCl 60 mg PO Q4-6H PRN 30 days tezepelumab-ekko (Tezspire) mg subcut tiotropium-olodaterol 2.5-2.5 mcg/actuation (Stiolto Respimat) 2 puffs inhalation DAILY 30 days triamcinolone acetonide 0.1% appl topical BID zolpidem ER 12.5 mg PO BEDTIME HPI Comments Details: 48-year-old female with fibromyalgia returns for follow-up. She states that she has in a flare-up. She has diffuse pain everywhere. 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 Review of Systems Musc Reports myalgias, Reports arthralgias, Reports limited range of motion, Reports numbness and Reports tingling Neuro Reports numbness and Reports tingling Physical Exam Vital Signs: Last Vital Signs BP 128/60 02/28/24 10:11 BMI result Body Mass Index 25.7 Const General: cooperative, healthy appearing and comfortable Nutritional Appearance: overweight Orientation/consciousness: patient oriented x3 Limitations: no limitations HEENT Head: Yes normocephalic and Yes atraumatic Resp Effort & Inspection: normal respiratory effort and able to speak in complete sentences Skin General skin exam: no rashes or lesions noted Neuro General: patient oriented x3 Extrem Other: Multiple fibromyalgia tender points Assessment & Plan Assessment & Plan (1) Fibromyalgia: Code(s): M79.7 - Fibromyalgia Category: Medical Plan: Discussed management of fibromyalgia with patient. 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 Patient states that she follows up regularly with a psychiatrist and a psychotherapist. Try to follow sleep hygiene practices. Consider a sleep study to rule out HOME. Patient states that she walks but not regularly. Patient would benefit from increased physical activity, either through formal physical therapy or by joining a gym. Advised patient that she should start activity slowly and increase as tolerated. Consider low-impact exercises such as walking, swimming, aqua therapy stretching, yoga. Follow-up with PCP (2) Bilateral carpal tunnel syndrome: Code(s): G56.03 - Carpal tunnel syndrome, bilateral upper limbs Category: Medical Plan: EMG/NCV showed bilateral carpal tunnel syndrome, more severe on the left. Advised patient to return to hand surgeon Plan I spent 24 minutes reviewing patient's chart, evaluating patient, counseling patient and documenting in the chart Coding Level of Care Code Est Pt Level 4 (58377) Diagnoses Fibromyalgia M79.7 Bilateral carpal tunnel syndrome G56.03
[2024-02-28 10:11] VITALS: BP 128/60; BMI 25.7
== END 2024-02-28 10:40 | disposition home or self-care (01) ==
PROVIDERS: PCP Internal Medicine; Referring Provider Internal Medicine; Visit Provider Student in an Organized Health Care Education/Training Program
DX: M79.7 Fibromyalgia (principal); G56.03 Carpal tunnel syndrome, bilateral upper limbs
CPT/HCPCS: 99214

== ENCOUNTER → 2024-02-28 09:48 | Outpatient (BNVA) | payer MEDICAID, SELFPAY | PROVIDERS: PCP Internal Medicine; Visit Provider Student in an Organized Health Care Education/Training Program | DX: M79.7 Fibromyalgia (principal); G56.03 Carpal tunnel syndrome, bilateral upper limbs | CPT/HCPCS: 99212 ==

== ENCOUNTER 2024-04-22 08:41 | Outpatient (AMB) | payer MEDICAID, SELFPAY ==
[2024-04-22 09:01] VITALS: PULSE 85; O2SAT 98; BMI 25.7
--- NOTE | 2024-04-22 09:01 | MHC.OFFVIS ---
Vital Signs 04/22/24 09:01 Height 5 ft 4 in Weight 149 lb 14.629 oz BMI 25.7 Pulse 85 Pulse Source Pulse Oximeter Pulse Oximetry (%) 98 Oxygen Delivery Method Room Air Intake Visit Reasons: Asthma Latexer Required: No Allergies Penicillins Allergy (Severe, Verified 04/22/24 09:03) Shortness of Breath HPI Comments Details: The patient is a 48 y/o woman with known history of asthma and chronic allergic rhinitis. She has significant nasal congestion moderate severity. She was evaluated by ENT for this ongoing significant issue. Did did not perform a laryngoscopy which would have been helpful. In the meantime she has been started on Xolair to see if this any improvement in the inflammation of her nasal turbinates. we have tried prescribing her Sudafed as a better disease decongestant, however, her insurance does not cover. I did find her a generic Sudafed that she can find for example at [employer] that have be reasonable for her to be able to buy [id number]. She should continue using the Sudafed or generic until I see her and couple months. In the meantime will see the effective Xolair. She does have an increased cough with clear mucus. She does get good response to her respiratory therapy at this time. 09/15/2023 the patient is here for a pulmonary follow-up visit. Her breathing has gotten worse since her QVAR has not been provided from the pharmacy. Apparently she needs a prior approval now after the year started. We did submitted and should be answered back in 24 hours. The meantime I did give the patient some prednisone in case her symptoms worsen she can always start that. She does continue to use the Stiolto. She also responded well to the triple inhaler in the past, Trelegy but was not cover. We can also send her back to Treleg[employer] to see if this covered now. She continues to have significant nasal congestion and difficulty breathing. She has been on the Tezspire now injection about 3 months. She has not seen any significant improvement of the breathing. She will follow-up with allergy in the next few months to see if his something she is going to continue. We talked about the importance. She is willing to try small dose Sudafed. Eighty be [id number] therefore I did give her the recommendation to either start with 30 mg 60 mg and just see if that provides some relief with her significant nasal congestion. She has been evaluated by ENT in the past and did did not want to intervene. 11/22/2023 the patient is here for a pulmonary follow-up visit. The patient has been complaining of worsening respiratory symptoms for last couple days. She had been doing well. She still complains of the chronic sinusitis. However, she did take the Sudafed finally but it caused some stomach upset so therefore she stopped it. It did clear some her sinuses however. The patient now is having some nasal congestion sore throat and worsening cough. She feels like she has a cold. Denies any joint pains or flu-like symptoms. She really does not want to get a swab done for the flu right now. Her respiratory exam is fairly good she does have diminished breath sounds with a prolonged expiratory phase. No significant wheezing. No crackles suggest pneumonia. Will go ahead and treat her for an upper airway respiratory illness. If the patient is no better she can take some prednisone but at this point she does not need it. She did have evaluation with allergy and immunology. The patient will undergo allergy testing soon. I did encourage him not to take the prednisone that she gets worse because is going to affect the results of her allergy testing. She continues on the biologic therapy once she has her testing completed she will talk to the systems testing laboratory technician about any changes on her biologic regimen. 04/22/2024 the patient is here for a pulmonary follow-up visit. Overall she has been doing okay. She has been noticing worsening sinus congestion lately. She has been tolerating the Sudafed with good effect. Although she needs to buy it [id number] because is not covered by her insurance. She also started allergy shots. She is getting those every 2 weeks. She still continues with the biologic therapy, test prior. She will continue that at this time. She continues use her respiratory therapy. Otherwise she is without any new complaints. No recent imaging to review at this time. 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 Review of Systems Const Denies night sweats ENT Denies change in voice, Denies lip swelling, Denies mouth pain, Reports nasal congestion, Reports nasal discharge, Denies post nasal drip, Denies sinus pain, Denies sinus pressure and Denies tongue swelling Card Denies chest pain and Denies dyspnea on exertion Resp Reports chest congestion, Reports cough, Denies dyspnea on exertion and Reports wheezing GI Denies abdominal pain Musc Denies no additional complaints Neuro Denies Neuro-related abnormal movements Psych Denies no additional complaints Carlos/Lymph Denies easy bleeding and Denies lymphadenopathy Aller/Immun Denies lip swelling, Denies tongue swelling and Reports wheezing Physical Exam Vital Signs: Last Vital Signs Pulse 85 04/22/24 09:01 Pulse Ox 98 04/22/24 09:01 Oxygen Delivery Method Room Air 04/22/24 09:01 BMI result Body Mass Index 25.7 Const General: comfortable Orientation/consciousness: patient oriented x3 Neck Neck: Yes normal visual inspection, Yes full ROM and Yes no lymphadenopathy Chest Chest palpation & inspection: normal inspection of the chest Resp Effort & Inspection: normal respiratory effort and No prolonged expiratory phase Auscultation: clear to auscultation bilaterally and no wheezes Cardio Rate: regular rate Rhythm: regular rhythm Heart sounds: S1 normal heart sound present and S2 normal heart sound present GI Palpation (GI): Soft to palpation and nontender Auscultation: normal bowel sounds Skin General skin exam: rashes and/or lesions noted Neuro General: patient oriented x3 Assessment & Plan Assessment & Plan (1) Asthma: Code(s): J45.909 - Unspecified asthma, uncomplicated Category: Medical Qualifiers: Asthma complication type: with acute exacerbation Asthma persistence: persistent Asthma severity: moderate Qualified Code(s): J45.41 - Moderate persistent asthma with (acute) exacerbation (2) Chronic allergic rhinitis: Code(s): J30.9 - Allergic rhinitis, unspecified Category: Medical (3) Sinusitis: Code(s): J32.9 - Chronic sinusitis, unspecified Category: Medical Qualifiers: Sinusitis location: unspecified location Chronicity: subacute Qualified Code(s): J01.90 - Acute sinusitis, unspecified Plan start Doxycycline start Prednisone if no better Continue Tezspire with Allergy Allergy shots every 2 weeks Mucinex DM continue reflux diet continue Pepcid Continue Stiolto continue QVAR Continue Singulair Benadryl as needed F/U 3-4 months Medications: New doxycycline monohydrate 100 mg PO BID 28 tabs 0RF 14 days prednisone PO daily; Take 2 tabs daily x 5 days, then 1 tablet daily x 5 days 15 tabs 0RF 10 days Coding Level of Care Code Est Pt Level 4 (09780) Diagnoses Moderate persistent asthma with acute exacerbation J45.41 Asthma complication type: with acute exacerbation Asthma persistence: persistent Asthma severity: moderate Chronic allergic rhinitis J30.9 Subacute sinusitis, unspecified location J01.90 Sinusitis location: unspecified location Chronicity: subacute Time Spent (min) 16
== END 2024-04-22 09:16 | disposition home or self-care (01) ==
PROVIDERS: PCP Internal Medicine; Visit Provider Hospitalist
DX: J45.41 Moderate persistent asthma with (acute) exacerbation (principal); J30.9 Allergic rhinitis, unspecified; J01.90 Acute sinusitis, unspecified
CPT/HCPCS: 99214

== ENCOUNTER → 2024-04-22 08:41 | Outpatient (BNVA) | payer MEDICAID, SELFPAY | PROVIDERS: PCP Internal Medicine; Visit Provider Hospitalist | DX: J45.41 Moderate persistent asthma with (acute) exacerbation (principal); J30.9 Allergic rhinitis, unspecified; J01.90 Acute sinusitis, unspecified | CPT/HCPCS: 99212 ==

== ENCOUNTER 2024-06-03 10:50 | Outpatient (REF) | payer MEDICAID, SELFPAY ==
[2024-06-03 11:52] LABS: MANUAL DIFF FLAG NO
[2024-06-03 12:03] LABS: Basophils Absolute Auto 0.1 X10*3/uL (0.0-0.2); Basophils Percent Auto 0.6 % (0-2); Eosinophils Percent Auto 0.3 % (0-4); Hematocrit 41.6 % (37.0-47.0); Imm Gran Abs Auto 0.09 X10*3/uL (0.00-0.03); Imm Gran Pct Auto 1.1 % (0.0-0.4); Lymphocytes Absolute Auto 1.4 X10*3/uL (1.2-4.9); Lymphocytes Percent Auto 17.9 % (20-40); Mean Corpuscular HGB Conc 31.3 g/dl (31.0-35.0); Mean Corpuscular Hemoglobin 29.3 pg (27.0-33.0); Mean Corpuscular Volume 93.7 fL (80.0-98.0); Mean Platelet Volume 10.1 fL (9.4-12.3); Monocytes Absolute Auto 0.4 X10*3/uL (0.1-1.2); Monocytes Percent Auto 5.1 % (2-11); Neutrophils Absolute Auto 5.9 x10*3/uL (2.0-8.3); Platelet Count 244 X10*3/uL (160-400); Red Blood Count 4.44 X10*6/uL (4.20-5.50); White Blood Count 7.9 X10*3/uL (4.8-10.8)
[2024-06-03 12:24] LABS: Estimated Average Glucose 91 mg/dL; Hemoglobin A1c % 4.8 % (<6.0)
[2024-06-03 12:34] LABS: Alanine Aminotransferase 9 U/L (0-31); Albumin Level 4.3 g/dL (3.5-5.0); Alkaline Phosphatase 82 U/L (39-117); Anion Gap 9 (12-20); Aspartate Amino Transferase 14 U/L (5-31); Bilirubin Total 1.1 mg/dL (0.0-1.0); Blood Urea Nitrogen 9 mg/dL (9-16); C Reactive Protein < 0.10 mg/dL (< or = 0.50); Calcium 9.8 mg/dL (8.4-10.2); Carbon Dioxide 28 mmol/L (22-29); Chloride 108 mmol/L (96-108); Estimated Glomerular Filt Rate > 60; Glucose Random 93 mg/dL (60-115); Potassium 3.5 mmol/L (3.3-5.1); Sodium 141 mmol/L (135-145); Total Protein 7.3 g/dL (6.5-8.0)
[2024-06-03 12:45] LABS: Erythrocyte Sedimentation Rate 6 MM/HR (0-20)
[2024-06-03 12:51] LABS: TSH reflex Free T4 0.71 uIU/mL (0.32-4.0)
== END 2024-06-03 10:51 | disposition home or self-care (01) ==
LOC: HO.HHCL 10:50
PROVIDERS: Visit Provider Nurse Practitioner Family
DX: R63.4 Abnormal weight loss (principal)
CPT/HCPCS: 36415; 80053; 83036; 84443; 85025; 85652; 86140

== ENCOUNTER 2024-06-07 15:42 | Outpatient (REF) | payer MEDICAID, SELFPAY ==
--- NOTE | ~2024-06-07 | US_ITS ---
EXAMINATION: US neck CLINICAL INFORMATION: Left supraclavicular node, unintentional weight loss. COMPARISON: None available. TECHNIQUE: Linear transducer hennessy-scale and color Doppler examination with attention to the region of the left neck. FINDINGS: NODES: No lymphadenopathy is seen in the tissue in the left supraclavicular region or cervical region. US/US soft tiss head and/or neck IMPRESSION: No lymphadenopathy. Electronically signed by: Ministerio Dorado MD 06/07/2024 07:04 PM EDT RP
== END 2024-06-07 15:43 | disposition home or self-care (01) ==
LOC: HO.US 15:42
PROVIDERS: PCP Nurse Practitioner Family; Visit Provider Nurse Practitioner Family
DX: R59.1 Generalized enlarged lymph nodes (principal)
CPT/HCPCS: 76536

== ENCOUNTER 2024-07-05 16:50 | Emergency (ER) | payer MEDICAID, SELFPAY ==
[2024-07-05 17:00] VITALS: BP 155/86; PULSE 107; RESP 20; TEMP 37; O2SAT 98; BMI 28.3
--- NOTE | 2024-07-05 17:05 | ED.HA ---
HPI - Headache General Chief Complaint: Headache Stated Complaint: migraine Time Seen by Provider: 07/05/24 20:36 Source: patient and family Mode of arrival: ambulatory Limitations: no limitations History of Present Illness ED Provider: GEOVANY VOSS Narrative: 48 yo female with PMH of asthma, migraines not on blood thinners c/o 1 day this AM woke up with migraine frontal with photophobia and n/v. No fevers, head trauma. Has had similar migraines in past. Came due to unable to keep any OTC medications down. MD elicited complaint: migraine Pertinent past history: migraines Onset (ago): day(s) (1) Onset description: gradually Location: frontal and band-like Severity: moderate Quality & Timing: throbbing Exacerbating factors: sitting/standing, light and noise Relieving factors: rest Context: occurred at rest Associated symptoms: nausea, vomiting and photophobia Treatments prior to arrival: none Related Data Home Medications ?Medication ?Instructions ?Recorded ?Confirmed clonazepam 1 mg tablet 1 mg PO DAILY 06/04/20 01/23/23 lurasidone 60 mg tablet (Latuda) 60 mg PO DAILY 06/04/20 01/23/23 hydroxyzine pamoate 25 mg capsule 25 mg PO Q6H PRN itch 01/23/23 01/23/23 triamcinolone acetonide 0.1 % appl topical BID 01/23/23 01/23/23 topical cream nebulizers 02/27/23 bupropion HCl 150 mg 24 hr tablet, 150 mg PO QAM 09/12/23 extended release bupropion HCl 300 mg 24 hr tablet, 300 mg PO QAM 09/12/23 extended release diphenhydramine HCl 25 mg capsule 25 mg PO DAILY PRN allergies 09/12/23 (Banophen) divalproex 500 mg tablet,delayed 500 mg PO BID 09/12/23 release lurasidone 80 mg tablet 80 mg PO QPM depressive disorder 09/12/23 nortriptyline 10 mg capsule 10 mg PO DAILY 09/12/23 tezepelumab-ekko 210 mg/1.91 mL mg subcut 09/12/23 (110 mg/mL) subcutaneous syringe (Tezspire) zolpidem 12.5 mg tablet,extended 12.5 mg PO BEDTIME 09/12/23 release,multiphase Previous Rx's ?Medication ?Instructions ?Recorded mometasone 50 mcg/actuation nasal 2 spray intranasal DAILY 30 days 05/13/22 spray #17 grams omeprazole 20 mg capsule,delayed 20 mg PO DAILY 90 days #90 caps 10/28/22 release cock up splint #2 ea 01/23/23 albuterol sulfate 90 mcg/actuation 2 puff PO Q6H PRN for dyspnea 30 02/27/23 aerosol inhaler (Ventolin HFA) days #1 ea beclomethasone dipropionate 80 2 inh PO BID #10.6 grams 02/27/23 mcg/actuation HFA breath activated aerosol (Qvar RediHaler) beclomethasone dipropionate 80 2 spray intranasal DAILY 30 days 02/27/23 mcg/actuation nasal HFA inhaler #10.6 grams (QNASL) ipratropium bromide 42 mcg (0.06 2 spray intranasal TID PRN for 02/27/23 %) nasal spray allergies #15 mL loratadine 10 mg tablet 10 mg PO DAILY 30 days #30 tabs 02/27/23 montelukast 10 mg tablet 10 mg PO BEDTIME #30 tabs 02/27/23 pseudoephedrine HCl 60 mg tablet 60 mg PO Q4-6H PRN nasal 02/27/23 congestion 30 days #60 tabs tiotropium 2.5 mcg-olodaterol 2.5 2 puff inhalation DAILY 30 days #4 02/27/23 mcg/actuation mist for inhalation mL (Stiolto Respimat) epinephrine 0.3 mg/0.3 mL 0.3 mg (0.3 mL) IM DIRECTED for 03/20/23 injection, auto-injector anaphylaxis #2 ea azelastine 137 mcg (0.1 %) nasal 2 spray intranasal BID #30 mL 05/26/23 spray famotidine 40 mg tablet 40 mg PO BEDTIME #90 tabs 07/04/23 albuterol sulfate 2.5 mg/3 mL 2.5 mg (3 mL) PO Q4H PRN for 11/22/23 (0.083 %) solution for nebulization wheezing #150 mL dextromethorphan-guaifenesin ER 60 1 tab PO Q12H 14 days #28 tabs 11/22/23 mg-1,200 mg tab,extend release,12hr (Mucinex DM) doxycycline monohydrate 100 mg 100 mg PO BID 14 days #28 tabs 04/22/24 tablet prednisone 20 mg tablet See Rx Instructions PO DAILY 10 04/22/24 days #15 tabs ondansetron 4 mg disintegrating 4 mg PO Q8H PRN nausea and 07/05/24 tablet vomiting #20 tabs Allergies Allergy/AdvReac Type Severity Reaction Status Date / Time Penicillins Allergy Severe Shortness Verified 07/05/24 17:02 of Breath Review of Systems Review of Systems: Constitutional : No Fever, No Chills, No Fatigue ENT/Mouth : No sore throat, No Rhinorrhea Eyes: No Eye Pain, No Swelling, No Redness Cardiovascular : No Chest Pain, No SOB, No Dyspnea on Exertion Respiratory : No Cough, No Sputum Gastrointestinal : pos Nausea, pos Vomiting, No Diarrhea, No abdominal Pain Genitourinary : No Dysuria, No Urinary Frequency, No Hematuria, Musculoskeletal : No joint pain, No Myalgias, No Joint Swelling Skin : No Skin Lesions, No rash Neuro : No Weakness, No Numbness, No Dizziness, positive Headache All other systems reviewed and are negative [facility] Past Medical History Attestation statement: The following information was validated with the patient. Source: old records reviewed Medical History Fibromyalgia Sinusitis Asthma Chronic allergic rhinitis Surgical History History of 2 sections History of partial hysterectomy Family History Family History Father Gout Cancer Arthritis of knee HTN (hypertension) Mother Rheumatoid arthritis Thyroid disease COPD (chronic obstructive pulmonary disease) Diabetes HTN (hypertension) Social History Social History Alcohol intake: never Patient Tobacco Use Status: Never used Tobacco Advance Directives: No Advance Directives Information Provided: No Do you have a plan to hurt others: No Plan Current occupational status: disabled 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 Oriented X3. No acute distress. Eyes: Pupils equal, round and reactive to light. ENT: Pharynx normal. Neck: Normal inspection. Neck supple. no meningeal signs CVS: Normal heart rate and rhythm. Pulses normal. Respiratory: No respiratory distress. Breath sounds normal. Abdomen: Soft and nontender. Skin: Skin warm and dry. Normal skin color. Normal skin turgor. Extremities: No lower extremity edema. Neuro: Oriented X 3. No motor deficit. No sensory deficit. Course Course Course Narrative: This is a Rapid Medical Examination (RME) performed by Anastacia Soriano PA-C in triage. Full HPI, ROS, assessment and treatment plan per primary provider in the Main ED. 48 yo female here for eval of frontal migraine, nasuea, vomiting x24 hours. hx of migraines, similar to previous. assoc photophobia. no head strike/ injury. Plan: basic labs Medications Administered Discontinued Medications Generic Name Dose Route Start Last Admin Trade Name Freq PRN Reason Stop Dose Admin Diphenhydramine HCl 25 mg 07/05/24 21:12 07/05/24 21:32 Diphenhydramine Hcl 50 Mg/Ml Vial IVPUSH 07/05/24 21:13 25 mg ONCE ONE Administration Ketorolac Tromethamine 15 mg 07/05/24 21:12 07/05/24 21:31 Ketorolac Tromethamine 15 Mg/Ml Vial IVPUSH 07/05/24 21:13 15 mg ONCE ONE Administration Metoclopramide HCl 10 mg 07/05/24 21:12 07/05/24 21:31 Metoclopramide Hcl 10 Mg/2 Ml Vial IVPUSH 07/05/24 21:13 10 mg ONCE ONE Administration Medical Decision Making Medical Decision Making MDM Narrative: 48 yo female with PMH of asthma, migraines here with n/v photophobia and typical migraine at this time will need IV medications for migraine. She has no fever, no meningeal signs, not on thinners and neuro intact doubt SAH or [employer] infection. Will DC when feeling better. Typical migraine for patient Differential Diagnosis Differential Diagnoses: The differential diagnosis associated with the presentation includes migraine, tension headache Admission/Observation Consideration of admission/observation: Escalation of care including admission/observation considered feels much better stable for DC Lab Data MDM Lab Attestation statement: I reviewed the patient's lab results. 07/05/24 18:02 07/05/24 18:02 Labs: Lab Results 07/05/24 Range/Units 18:02 WBC 11.1 H (4.8-10.8) X10*3/uL RBC 4.19 L (4.20-5.50) X10*6/uL Hgb 12.6 (12.0-16.0) g/dl Hct 37.4 (37.0-47.0) % MCV 89.3 (80.0-98.0) fL MCH 30.1 (27.0-33.0) pg MCHC 33.7 (31.0-35.0) g/dl RDW 11.9 (11.0-16.0) % Plt Count 228 (160-400) X10*3/uL MPV 9.2 L (9.4-12.3) fL Immature Gran % (Auto) 0.4 (0.0-0.4) % Neut % (Auto) 83.2 H (45-73) % Lymph % (Auto) 11.1 L (20-40) % [place] % (Auto) 4.7 (2-11) % Eos % (Auto) 0.2 (0-4) % Baso % (Auto) 0.4 (0-2) % Lymph # (Auto) 1.2 (1.2-4.9) X10*3/uL [place] # (Auto) 0.5 (0.1-1.2) X10*3/uL Eos # (Auto) 0.0 (0.0-0.4) X10*3/uL Baso # (Auto) 0.0 (0.0-0.2) X10*3/uL Abs Immat Gran (auto) 0.04 H (0.00-0.03) X10*3/uL Absolute Neuts (auto) 9.3 H (2.0-8.3) x10*3/uL Absolute Nucleated RBC 0.000 (0.0-0.012) X10*3/uL Nucleated RBC % (auto) 0.0 (0.0-0.2) /100WBC Sodium 140 (135-145) mmol/L Potassium 4.4 D (3.3-5.1) mmol/L Chloride 107 (96-108) mmol/L Carbon Dioxide 24 (22-29) mmol/L Anion Gap 13 (12-20) BUN 14 (9-16) mg/dL Creatinine 0.71 (0.5-1.4) mg/dL Estim Creat Clear Calc 96.0 Estimated GFR > 60 Random Glucose 101 (60-115) mg/dL Calcium 9.5 (8.4-10.2) mg/dL Magnesium 1.7 (1.6-2.6) mg/dL Total Bilirubin 1.3 H (0.0-1.0) mg/dL AST 18 (5-31) U/L ALT 7 (0-31) U/L Alkaline Phosphatase 76 (39-117) U/L Total Protein 6.8 (6.5-8.0) g/dL Albumin 4.0 (3.5-5.0) g/dL Independent Historian Clinical information obtained from an independent historian. History obtained from or confirmed by: Other (family) External Record Review External record reviewed: Office record Prescription Management I considered prescription management with: Other Discharge Plan Discharge Clinical Impression: Migraine Qualifiers: Migraine type: unspecified Status migrainosus presence: without status migrainosus Intractability: not intractable Qualified Code(s): G43.909 - Migraine, unspecified, not intractable, without status migrainosus Patient Disposition: Home, Self-Care Instructions: Migraine Headache (ED) Additional Instructions: return for worsening symptoms confusion, unable to eat or drink, severe pain or any other concerns rest and stay hydrated Prescriptions: New ondansetron 4 mg tablet,disintegrating 4 mg PO Q8H PRN (Reason: nausea and vomiting) Qty: 20 0RF No Action omeprazole 20 mg capsule,delayed release(DR/EC) 20 mg PO DAILY 90 Days Qty: 90 3RF epinephrine 0.3 mg/0.3 mL auto-injector 0.3 mg IM DIRECTED Qty: 2 11RF azelastine 137 mcg (0.1 %) aerosol,spray 2 spray intranasal BID Qty: 30 11RF famotidine 40 mg tablet 40 mg PO BEDTIME Qty: 90 0RF clonazepam 1 mg tablet 1 mg PO DAILY Latuda 60 mg tablet 60 mg PO DAILY Rx Instructions: must administer with food (at least 350 calories) mometasone 50 mcg/actuation spray,non-aerosol 2 spray intranasal DAILY 30 Days Qty: 17 11RF Rx Instructions: administer into each nostril triamcinolone acetonide 0.1 % cream topical BID hydroxyzine pamoate 25 mg capsule 25 mg PO Q6H PRN (Reason: itch) (DME) cock up splint See Rx Instructions .Route .MEDSUPPLY Qty: 2 0RF Rx Instructions: wear at night Tezspire 210 mg/1.91 mL (110 mg/mL) syringe subcut zolpidem 12.5 mg tablet,ext release multiphase 12.5 mg PO BEDTIME lurasidone 80 mg tablet 80 mg PO QPM bupropion HCl 300 mg tablet extended release 24 hr 300 mg PO QAM bupropion HCl 150 mg tablet extended release 24 hr 150 mg PO QAM diphenhydramine HCl [Banophen] 25 mg capsule 25 mg PO DAILY PRN (Reason: allergies) nortriptyline 10 mg capsule 10 mg PO DAILY divalproex 500 mg tablet,delayed release (DR/EC) 500 mg PO BID (DME) nebulizers Misc See Rx Instructions .Route Rx Instructions: As directed pseudoephedrine HCl 60 mg tablet 60 mg PO Q4-6H PRN (Reason: nasal congestion) 30 Days Qty: 60 3RF Rx Instructions: DNExceed 4 doses/24h albuterol sulfate [Ventolin HFA] 90 mcg/actuation HFA aerosol inhaler 2 puff PO Q6H PRN (Reason: for dyspnea) 30 Days Qty: 1 11RF Qvar RediHaler 80 mcg/actuation HFA aerosol breath activated 2 inh PO BID Qty: 10.6 11RF QNASL 80 mcg/actuation HFA aerosol inhaler 2 spray intranasal DAILY 30 Days Qty: 10.6 11RF Rx Instructions: administer into one nostril ipratropium bromide 42 mcg (0.06 %) spray,non-aerosol 2 spray intranasal TID PRN (Reason: for allergies) Qty: 15 6RF loratadine 10 mg tablet 10 mg PO DAILY 30 Days Qty: 30 11RF montelukast 10 mg tablet 10 mg PO BEDTIME Qty: 30 11RF Stiolto Respimat 2.5-2.5 mcg/actuation mist 2 puff inhalation DAILY 30 Days Qty: 4 11RF dextromethorphan-guaifenesin [Mucinex DM] 60-1,200 mg tablet extended release 12 hr 1 tab PO Q12H 14 Days Qty: 28 4RF albuterol sulfate 2.5 mg /3 mL (0.083 %) solution for nebulization 2.5 mg PO Q4H PRN (Reason: for wheezing) Qty: 150 11RF doxycycline monohydrate 100 mg tablet 100 mg PO BID 14 Days Qty: 28 0RF prednisone 20 mg tablet See Rx Instructions PO DAILY 10 Days Qty: 15 0RF Rx Instructions: PO daily; Take 2 tabs daily x 5 days, then 1 tablet daily x 5 days Print Language: Macedonian
[2024-07-05 18:05] LABS: MANUAL DIFF FLAG NO
[2024-07-05 18:15] LABS: Basophils Percent Auto 0.4 % (0-2); Eosinophils Percent Auto 0.2 % (0-4); Hematocrit 37.4 % (37.0-47.0); Hemoglobin 12.6 g/dl (12.0-16.0); Imm Gran Abs Auto 0.04 X10*3/uL (0.00-0.03); Imm Gran Pct Auto 0.4 % (0.0-0.4); Lymphocytes Absolute Auto 1.2 X10*3/uL (1.2-4.9); Lymphocytes Percent Auto 11.1 % (20-40); Mean Corpuscular HGB Conc 33.7 g/dl (31.0-35.0); Mean Corpuscular Hemoglobin 30.1 pg (27.0-33.0); Mean Corpuscular Volume 89.3 fL (80.0-98.0); Mean Platelet Volume 9.2 fL (9.4-12.3); Monocytes Absolute Auto 0.5 X10*3/uL (0.1-1.2); Monocytes Percent Auto 4.7 % (2-11); Neutrophils Absolute Auto 9.3 x10*3/uL (2.0-8.3); Neutrophils Percent Auto 83.2 % (45-73); Platelet Count 228 X10*3/uL (160-400); Red Blood Count 4.19 X10*6/uL (4.20-5.50); Red Cell Distribution Width 11.9 % (11.0-16.0); White Blood Count 11.1 X10*3/uL (4.8-10.8)
[2024-07-05 18:34] LABS: Alanine Aminotransferase 7 U/L (0-31); Alkaline Phosphatase 76 U/L (39-117); Anion Gap 13 (12-20); Aspartate Amino Transferase 18 U/L (5-31); Bilirubin Total 1.3 mg/dL (0.0-1.0); Blood Urea Nitrogen 14 mg/dL (9-16); Calcium 9.5 mg/dL (8.4-10.2); Carbon Dioxide 24 mmol/L (22-29); Chloride 107 mmol/L (96-108); Estimated Glomerular Filt Rate > 60; Glucose Random 101 mg/dL (60-115); Magnesium 1.7 mg/dL (1.6-2.6); Potassium 4.4 mmol/L (3.3-5.1); Sodium 140 mmol/L (135-145); Total Protein 6.8 g/dL (6.5-8.0)
[2024-07-05 20:47] VITALS: BP 103/58; PULSE 47; RESP 16; TEMP 36.7; O2SAT 98
[2024-07-05] MEDS: Ketorolac Tromethamine 15 MG/ML VIAL IVPUSH (21:31)
[2024-07-05] MEDS: Metoclopramide HCl 10 MG/2 ML VIAL IVPUSH (21:31)
[2024-07-05] MEDS: diphenhydrAMINE HCL 50 MG/ML VIAL 25 MG IVPUSH (21:32)
[2024-07-05 22:28] VITALS: BP 97/52; PULSE 67; RESP 16; TEMP 36.6; O2SAT 99
[2024-07-05 22:40] VITALS: BP 97/52; PULSE 67; RESP 16; TEMP 36.6; O2SAT 99
== END 2024-07-05 22:45 | disposition home or self-care (01) ==
PROVIDERS: Physician Assistant Medical; Emergency Provider Emergency Medicine
DX: G43.909 Migraine, unspecified, not intractable, without status migrainosus (principal); R11.2 Nausea with vomiting, unspecified; H53.143 Visual discomfort, bilateral; Z79.899 Other long term (current) drug therapy
CPT/HCPCS: 36415; 80053; 83735; 85025; 96374; 96375; 99283; 99284; J1200; J1885; J2765

== ENCOUNTER 2024-08-16 09:47 | Outpatient (AMB) | payer MEDICAID, SELFPAY ==
[2024-08-16 09:53] VITALS: BP 102/80; BMI 27.6
--- NOTE | 2024-08-16 09:53 | A.OFFVIS_ITS ---
Vital Signs 08/16/24 09:53 Height 5 ft 4 in Weight 160 lb 14.999 oz BMI 27.6 BP 102/80 Blood Pressure Location Lt brachial Position Sitting Intake Visit Reasons: Asthma Intake Note: please refill montelukast, epi pen, stilito, loratidine to local pharmacy. Allergies Penicillins Allergy (Severe, Verified 08/16/24 09:54) Shortness of Breath HPI Comments Details: The patient is a 48 y/o woman with known history of asthma and chronic allergic rhinitis. She has significant nasal congestion moderate severity. She was evaluated by ENT for this ongoing significant issue. Did did not perform a laryngoscopy which would have been helpful. In the meantime she has been started on Xolair to see if this any improvement in the inflammation of her nasal turbinates. we have tried prescribing her Sudafed as a better disease decongestant, however, her insurance does not cover. I did find her a generic Sudafed that she can find for example at [employer] that have be reasonable for her to be able to buy [id number]. She should continue using the Sudafed or generic until I see her and couple months. In the meantime will see the effective Xolair. She does have an increased cough with clear mucus. She does get good response to her respiratory therapy at this time. 09/15/2023 the patient is here for a pulmonary follow-up visit. Her breathing has gotten worse since her QVAR has not been provided from the pharmacy. Apparently she needs a prior approval now after the year started. We did submitted and should be answered back in 24 hours. The meantime I did give the patient some prednisone in case her symptoms worsen she can always start that. She does continue to use the Stiolto. She also responded well to the triple inhaler in the past, Trelegy but was not cover. We can also send her back to [employer] to see if this covered now. She continues to have significant nasal congestion and difficulty breathing. She has been on the Tezspire now injection about 3 months. She has not seen any significant improvement of the breathing. She will follow-up with allergy in the next few months to see if his something she is going to continue. We talked about the importance. She is willing to try small dose Sudafed. Eighty be [id number] therefore I did give her the recommendation to either start with 30 mg 60 mg and just see if that provides some relief with her significant nasal congestion. She has been evaluated by ENT in the past and did did not want to intervene. 11/22/2023 the patient is here for a pulmonary follow-up visit. The patient has been complaining of worsening respiratory symptoms for last couple days. She had been doing well. She still complains of the chronic sinusitis. However, she did take the Sudafed finally but it caused some stomach upset so therefore she stopped it. It did clear some her sinuses however. The patient now is having some nasal congestion sore throat and worsening cough. She feels like she has a cold. Denies any joint pains or flu-like symptoms. She really does not want to get a swab done for the flu right now. Her respiratory exam is fairly good she does have diminished breath sounds with a prolonged expiratory phase. No significant wheezing. No crackles suggest pneumonia. Will go ahead and treat her for an upper airway respiratory illness. If the patient is no better she can take some prednisone but at this point she does not need it. She did have evaluation with allergy and immunology. The patient will undergo allergy testing soon. I did encourage him not to take the prednisone that she gets worse because is going to affect the results of her allergy testing. She continues on the biologic therapy once she has her testing completed she will talk to the quality assurance assistant about any changes on her biologic regimen. 04/22/2024 the patient is here for a pulmonary follow-up visit. Overall she has been doing okay. She has been noticing worsening sinus congestion lately. She has been tolerating the Sudafed with good effect. Although she needs to buy it [id number] because is not covered by her insurance. She also started allergy shots. She is getting those every 2 weeks. She still continues with the biologic therapy, test prior. She will continue that at this time. She continues use her respiratory therapy. Otherwise she is without any new complaints. No recent imaging to review at this time. 08/16/2024 the patient is here for a pulmonary follow-up visit. She started developing worsening nasal congestion and postnasal drip. Cough is croupy in nature. She has been sick now for about a week. Denies any sick contacts. Denies any fevers or chills. She continues with her allergy shots in her asthma biologic therapy with her quality assurance assistant. She continues on her respiratory therapy that is been working well. No significant wheezing on exam right now. No need for steroids. Will go ahead and treat her for a upper respiratory illness. If her symptoms worsen she will call back otherwise will follow-up in 3 months. 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 Review of Systems Const Denies night sweats ENT Denies change in voice, Denies lip swelling, Denies mouth pain, Reports nasal congestion, Reports nasal discharge, Denies post nasal drip, Denies sinus pain, Denies sinus pressure and Denies tongue swelling Card Denies chest pain and Denies dyspnea on exertion Resp Reports chest congestion, Reports cough, Denies dyspnea on exertion and Reports wheezing GI Denies abdominal pain Musc Denies no additional complaints Neuro Denies Neuro-related abnormal movements Psych Denies no additional complaints Carlos/Lymph Denies easy bleeding and Denies lymphadenopathy Aller/Immun Denies lip swelling, Denies tongue swelling and Reports wheezing Physical Exam Vital Signs: Last Vital Signs BP 102/80 08/16/24 09:53 BMI result Body Mass Index 27.6 Const General: comfortable Orientation/consciousness: patient oriented x3 Neck Neck: Yes normal visual inspection, Yes full ROM and Yes no lymphadenopathy Chest Chest palpation & inspection: normal inspection of the chest Resp Effort & Inspection: normal respiratory effort and No prolonged expiratory phase Auscultation: clear to auscultation bilaterally and no wheezes Cardio Rate: regular rate Rhythm: regular rhythm Heart sounds: S1 normal heart sound present and S2 normal heart sound present GI Palpation (GI): Soft to palpation and nontender Auscultation: normal bowel sounds Skin General skin exam: rashes and/or lesions noted Neuro General: patient oriented x3 Assessment & Plan Assessment & Plan (1) Asthma: Code(s): J45.909 - Unspecified asthma, uncomplicated Category: Medical Qualifiers: Asthma complication type: with acute exacerbation Asthma persistence: persistent Asthma severity: moderate Qualified Code(s): J45.41 - Moderate persistent asthma with (acute) exacerbation (2) Chronic allergic rhinitis: Code(s): J30.9 - Allergic rhinitis, unspecified Category: Medical (3) Sinusitis: Code(s): J32.9 - Chronic sinusitis, unspecified Category: Medical Qualifiers: Chronicity: subacute Sinusitis location: unspecified location Qualified Code(s): J01.90 - Acute sinusitis, unspecified Plan start Azithromycin cough medicine Continue Tezspire with Allergy Allergy shots every 2 weeks Mucinex DM continue reflux diet continue Pepcid Continue Stiolto continue QVAR Continue Singulair Benadryl as needed F/U 3-4 months Medications: New azithromycin 500 mg PO DAILY 5 tabs 0RF 5 days benzonatate 200 mg PO BID PRN 60 caps 5RF cough 30 days codeine-guaifenesin 10-100 mg/5 mL 10 mL PO Q6H PRN 300 mL 0RF cough 10 days Refilled tiotropium-olodaterol 2.5-2.5 mcg/actuation (Stiolto Respimat) 2 puffs inhalation DAILY 4 mL 11RF 30 days epinephrine 0.3 mg (0.3 mL) IM DIRECTED 2 ea 11RF for anaphylaxis omeprazole 20 mg PO DAILY 90 caps 3RF 90 days famotidine 40 mg PO BEDTIME 90 tabs 3RF montelukast 10 mg PO BEDTIME 30 tabs 11RF J45.909 - Unspecified asthma, uncomplicated Coding Level of Care Code Est Pt Level 4 (05124) Diagnoses Moderate persistent asthma with acute exacerbation J45.41 Asthma complication type: with acute exacerbation Asthma persistence: persistent Asthma severity: moderate Chronic allergic rhinitis J30.9 Subacute sinusitis, unspecified location J01.90 Chronicity: subacute Sinusitis location: unspecified location Time Spent (min) 16
== END 2024-08-16 10:11 | disposition home or self-care (01) ==
PROVIDERS: Visit Provider Hospitalist
DX: J45.41 Moderate persistent asthma with (acute) exacerbation (principal); J30.9 Allergic rhinitis, unspecified; J01.90 Acute sinusitis, unspecified
CPT/HCPCS: 99214

== ENCOUNTER → 2024-08-16 09:47 | Outpatient (BNVA) | payer MEDICAID, SELFPAY | PROVIDERS: Visit Provider Hospitalist | DX: J45.41 Moderate persistent asthma with (acute) exacerbation (principal); J30.9 Allergic rhinitis, unspecified; J01.90 Acute sinusitis, unspecified | CPT/HCPCS: 99212 ==

== ENCOUNTER 2024-11-15 08:44 | Outpatient (AMB) | payer MEDICAID, SELFPAY ==
--- NOTE | 2024-11-15 08:49 | A.OFFVIS_ITS ---
Vital Signs 11/15/24 08:50 Height 5 ft 4 in Weight 173 lb 1.006 oz BMI 29.7 BP 112/74 Blood Pressure Location Rt brachial Position Sitting Pulse 94 Pulse Source Pulse Oximeter Pulse Oximetry (%) 97 Oxygen Delivery Method Room Air Intake Visit Reasons: asthma Allergies Penicillins Allergy (Severe, Verified 08/16/24 09:54) Shortness of Breath HPI Comments Details: The patient is a 48 y/o woman with known history of asthma and chronic allergic rhinitis. She has significant nasal congestion moderate severity. She was e valuated by ENT for this ongoing significant issue. Did did not perform a laryngoscopy which would have been helpful. In the meantime she has been started on Xolair to see if this any improvement in the inflammation of her nasal turbinates. we have tried prescribing her Sudafed as a better disease decongestant, however, her insurance does not cover. I did find her a generic Sudafed that she can find for example at [employer] that have be reasonable for her to be able to buy [id number]. She should continue using the Sudafed or generic until I see her and couple months. In the meantime will see the effective Xolair. She does have an increased cough with clear mucus. She does get good response to her respiratory therapy at this time. 09/15/2023 the patient is here for a pulmonary follow-up visit. Her breathing has gotten worse since her QVAR has not been provided from the pharmacy. Apparently she needs a prior approval now after the year started. We did submitted and should be answered back in 24 hours. The meantime I did give the patient some prednisone in case her symptoms worsen she can always start that. She does continue to use the Stiolto. She also responded well to the triple inhaler in the past, [facility] but was not cover. We can also send her back to [employer] to see if this covered now. She continues to have significant nasal congestion and difficulty breathing. She has been on the Tezspire now injection about 3 months. She has not seen any significant improvement of the breathing. She will follow-up with allergy in the next few months to see if his something she is going to continue. We talked about the importance. She is willing to try small dose Sudafed. Eighty be [id number] therefore I did give her the recommendation to either start with 30 mg 60 mg and just see if that provides some relief with her significant nasal congestion. She has been evaluated by ENT in the past and did did not want to intervene. 11/22/2023 the patient is here for a pulmonary follow-up visit. The patient has been complaining of worsening respiratory symptoms for last couple days. She had been doing well. She still complains of the chronic sinusitis. However, she did take the Sudafed finally but it caused some stomach upset so therefore she stopped it. It did clear some her sinuses however. The patient now is having some nasal congestion sore throat and worsening cough. She feels like she has a cold. Denies any joint pains or flu-like symptoms. She really does not want to get a swab done for the flu right now. Her respiratory exam is fairly good she does have diminished breath sounds with a prolonged expiratory phase. No significant wheezing. No crackles suggest pneumonia. Will go ahead and treat her for an upper airway respiratory illness. If the patient is no better she can take some prednisone but at this point she does not need it. She did have evaluation with allergy and immunology. The patient will undergo al lergy testing soon. I did encourage him not to take the prednisone that she gets worse because is going to affect the results of her allergy testing. She continues on the biologic therapy once she has her testing completed she will talk to the lockstitch binder about any changes on her biologic regimen. 04/22/2024 the patient is here for a pulmonary follow-up visit. Overall she has been doing okay. She has been noticing worsening sinus congestion lately. She has been tolerating the Sudafed with good effect. Although she needs to buy it [id number] because is not covered by her insurance. She also started allergy shots. She is getting those every 2 weeks. She still continues with the biologic therapy, test prior. She will continue that at this time. She continues use her respiratory therapy. Otherwise she is without any new complaints. No recent imaging to review at this time. 08/16/2024 the patient is here for a pulmonary follow-up visit. She started developing worsening nasal congestion and postnasal drip. Cough is croupy in nature. She has been sick now for about a week. Denies any sick contacts. Denies any fevers or chills. She continues with her allergy shots in her asthma biologic therapy with her lockstitch binder. She continues on her respiratory therapy that is been working well. No significant wheezing on exam right now. No need for steroids. Will go ahead and treat her for a upper respiratory illness. If her symptoms worsen she will call back otherwise will follow-up in 3 months. 11/15/2024 the patient is here for a pulmonary follow-up visit. Overall the patient is doing a little bit better. She did start developing a cough nonproductive in nature the last few days. [id number] severity. Also has runny nose. In addition to that she did have a significant lower respiratory infection. Had a significant congested cough. We had [facility] prescription antibiotics for the however she was no better. She ended up getting a course of Levaquin in the definitely helped her breathing. She continues on the Tezspire. Continues with respiratory therapy. No recent imaging studies to review. Will prescribe her some Tessalon Perles for cough right now and some ipratropium nasal spray. If her symptoms do worsen she can start a culture Medrol and also doxycycline. 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 Review of Systems Const Denies night sweats ENT Denies change in voice, Denies lip swelling, Denies mouth pain, Reports nasal congestion, Reports nasal discharge, Denies post nasal drip, Denies sinus pain, Denies sinus pressure and Denies tongue swelling Card Denies chest pain and Denies dyspnea on exertion Resp Reports chest congestion, Reports cough, Denies dyspnea on exertion and Reports wheezing GI Denies abdominal pain Musc Denies no additional complaints Neuro Denies Neuro-related abnormal movements Psych Denies no additional complaints Carlos/Lymph Denies easy bleeding and Denies lymphadenopathy Aller/Immun Denies lip swelling, Denies tongue swelling and Reports wheezing Physical Exam Vital Signs: Last Vital Signs Pulse 94 11/15/24 08:50 BP 112/74 11/15/24 08:50 Pulse Ox 97 11/15/24 08:50 Oxygen Delivery Method Room Air 11/15/24 08:50 BMI result Body Mass Index 29.7 Const General: comfortable Orientation/consciousness: patient oriented x3 Neck Neck: Yes normal visual inspection, Yes full ROM and Yes no lymphadenopathy Chest Chest palpation & inspection: normal inspection of the chest Resp Effort & Inspection: normal respiratory effort and No prolonged expiratory phase Auscultation: clear to auscultation bilaterally and no wheezes Cardio Rate: regular rate Rhythm: regular rhythm Heart sounds: S1 normal heart sound present and S2 normal heart sound present GI Palpation (GI): Soft to palpation and nontender Auscultation: normal bowel sounds Skin General skin exam: rashes and/or lesions noted Neuro General: patient oriented x3 Assessment & Plan Assessment & Plan (1) Asthma: Code(s): J45.909 - Unspecified asthma, uncomplicated Category: Medical Qualifiers: Asthma complication type: uncomplicated Asthma persistence: persistent Asthma severity: moderate Qualified Code(s): J45.40 - Moderate persistent asthma, uncomplicated (2) Chronic allergic rhinitis: Code(s): J30.9 - Allergic rhinitis, unspecified Category: Medical (3) Sinusitis: Code(s): J32.9 - Chronic sinusitis, unspecified Category: Medical Qualifiers: Chronicity: chronic Sinusitis location: unspecified location Qualified Code(s): J32.9 - Chronic sinusitis, unspecified (4) Cough: Code(s): R05.9 - Cough, unspecified Category: Medical Qualifiers: Cough type: chronic Qualified Code(s): R05.3 - Chronic cough Plan cough medicine Continue Tezspire with Allergy Allergy shots every 2 weeks Mucinex DM continue reflux diet continue Pepcid Continue Stiolto continue QVAR Continue Singulair Benadryl as needed CXR sinus xray F/U 3-4 months Orders: Orders XR chest 2V Today R05.9 - Cough, unspecified XR sinus min 3V Today J01.90 - Acute sinusitis, unspecified Medications: New benzonatate 200 mg PO BID PRN 60 caps 4RF cough 30 days doxycycline hyclate 100 mg PO BID 20 caps 0RF 10 days methylprednisolone (Medrol (Miki)) PO PER PKG DIR 21 ea 0RF 6 days Coding Level of Care Code Est Pt Level 4 (47840) Diagnoses Moderate persistent asthma without complication J45.40 Asthma complication type: uncomplicated Asthma persistence: persistent Asthma severity: moderate Chronic allergic rhinitis J30.9 Chronic sinusitis, unspecified location J32.9 Chronicity: chronic Sinusitis location: unspecified location Chronic cough R05.3 Cough type: chronic Time Spent (min) 16
[2024-11-15 08:50] VITALS: BP 112/74; PULSE 94; O2SAT 97; BMI 29.7
== END 2024-11-15 09:11 | disposition home or self-care (01) ==
LOC: HO.HPS 08:44
PROVIDERS: PCP Nurse Practitioner Family; Visit Provider Hospitalist
DX: J45.40 Moderate persistent asthma, uncomplicated (principal); J30.9 Allergic rhinitis, unspecified; J32.9 Chronic sinusitis, unspecified; R05.3 Chronic cough
CPT/HCPCS: 99214

== ENCOUNTER → 2024-11-15 08:44 | Outpatient (BNVA) | payer MEDICAID, SELFPAY | PROVIDERS: PCP Nurse Practitioner Family; Visit Provider Hospitalist | DX: J45.40 Moderate persistent asthma, uncomplicated (principal); J30.9 Allergic rhinitis, unspecified; J32.9 Chronic sinusitis, unspecified; R05.3 Chronic cough | CPT/HCPCS: 99212 ==

== ENCOUNTER 2024-12-16 09:01 | Outpatient (REF) | payer MEDICAID, SELFPAY ==
--- OUTSIDE RECORDS SUMMARY | 2024-12-16 09:54 | XMS_ITS | Encounter Summary ---
Author Organization [employer] Address [address] [facility] [address] [place] [address] Care Team Providers Care Transfer Agent Name Role Phone Judy MendezP Primary Care Provider [phone] Liv New NP Primary Care Provider [phone] Reason for Visit * Reason Onset Date Comments PT1 03/15/2023 Encounter Details Date Type Department Care Team ([facility] st Contact Info) Description 03/15/2023 Telephone [facility] [address] [place] [address] Judy Mendez FNP [address] [place] [address] PT1 Social History Tobacco Use Types Packs/Day Years Used Date Smoking Tobacco: Never Smokeless Tobacco: Never Alcohol Use Standard Drinks/Week Comments Never 0 (1 standard drink = 0.6 oz pur e alcohol) Comments Unknown Sex and Gender Information Value Date Recorded Sex Assigned at Female 07/04/2022 10:17 AM EDT Legal Sex Female 10:17 AM EDT Gender Identity Female 07/04/2022 10:17 AM EDT Sexual Orientation Straight 07/04/2022 10 :17 AM EDT documented as of this encounter Miscellaneous Notes * Telephone Encounter - Brandon Abad - 04/18/2023 4:24 PM EDT Pt called in again regarding PT1 for [facility] All[facility] / [address] [place] [address] insurance keeps denying pt1 because they want to know why she gets seen at [facility] . * Telephone Encounter - Brandon Aabd - 04/11/2023 4:16 PM EDT PT1 orginally denied due to location not being placed. New pt1 submitted as of today 04/11 * Telephone Encounter - Madiha Sparks - 03/15/2023 11:37 AM EDT Pt has active PT1 to location requested good through 09/2023 * Telephone Encounter - Paige Steele - 03/15/2023 9:34 AM EDT Tc from pt requesting PT1 Form: Name of facility: [facility] Of Preclinical [facility] Specialty: Allergy Location: [address] [place] [address] Date: 04/03/2023 Time: 9:30 am fax: n/a Phone: n/a wheelchair: no Senior Benefits Analyst: Yes All Future Appt's documented in this encounter Plan of Treatment Upcoming Encounters Date Type Department Care Team (Late st Contact Info) Description 05/27/2025 8:00 AM EDT Office Visit [facility] ADULT DENTAL [address] [place] [address] Simin Banda documented as of this encounter Visit Diagnoses Not on filedocumented in this encounter Care Teams Transfer Agent Relationship Specialty Start Date End Date Judy Mendez FNP [address] [place] [address] PCP - General Family Medicine 07/26/22 02/28/24 Liv New NP [address] [place] [address] PCP - General Family Medicine 02/29/24 documented as of this encounter
--- OUTSIDE RECORDS SUMMARY | 2024-12-16 09:54 | XMS_ITS | Clinical Summary ---
Author Organization [employer] Address [address] [facility] [address] [place] [address] Care Team Providers Care Associate Financial Analyst Name Role Phone Shaq Livshiva PFEIFFER Primary Care Provider [phone] Allergies Active Allergy Reactions Criticality Noted Date Comments Penicillins Rash Low Wound Dressing Adhesive 09/12/2016 Medications hydrOXYzine pamoate (Vistaril) 25 MG capsuleIndications :Nummular dermatitis Take 1 capsule (25 mg) by mouth every 6 (six) hours if needed for itching for up to 10 days. 30 capsule 3 Active Emollient (CeraVe Moisturizing) creamIndications:I ntrinsic allergic eczema Apply 340 g topically 2 times daily. 340 g 11 3 Active triamcinolone (Kenalog) 0.1 % creamIndications:C hronic pruritus APPLY A THIN LAYER TO THE AFFECTED AREA(S) 2 TIMES DAILY. MIX WITH CERAVE 454 g 3 4 Active amitriptyline (Elavil) 25 MG tabletIndications: Chronic nonintractable headache, unspecified headache type Take 1 tablet (25 mg) by mouth at bedtime. 30 tablet 1 4 Active albuterol 108 (90 Base) MCG/ACT inhalerIndications :Mild intermittent asthma, unspecified whether complicated Inhale 2 puffs every 6 (six) hours if needed for wheezing. 18 g 11 4 025 Active dextran 70-hypromellose (artificial tears) 0.1-0.3 % ophthalmic solutionIndication s:Dry eyes, bilateral Administer 1 drop into both eyes if needed in the morning, at noon, and at bedtime for dry eyes. 15 mL 3 4 025 Active cyclobenzaprine (Flexeril) 10 MG tablet Take 1 tablet (10 mg) by mouth 3 times daily for 10 days. 30 tablet 4 Active Active Problems Problem Noted Date Diagnosed Date Colon cancer screening 06/30/2024 Dietary counseling 06/30/2024 Assessment & Plan (06/30/2024 1:30 PM EDT): Encouraged minimizing processed foods and increasing whole foods particularly vegetables Exercise counseling 06/30/2024 Assessment & Plan (06/30/2024 1:31 PM EDT): Encouraged daily movement Healthcare maintenance 06/30/2024 Assessment & Plan (06/30/2024 1:31 PM EDT): Cologuard re ordered Intructions reviewed Breast screening 06/03/2024 Chronic nonintractable headache 06/03/2024 Assessment & Plan (06/03/2024 6:46 PM EDT): Trial amitriptyline as pt has difficulty sleeping, Lymphadenopathy 06/03/2024 Assessment & Plan (06/03/2024 6:48 PM EDT): Incidental finding on exam, ultrasound ordered Unintentional weight loss 06/02/2024 Assessment & Plan (06/03/2024 6:46 PM EDT): Suspect thyroid mediated wt loss as pt feels well otherwise Labs as ordered below Severe dental caries 03/28/2024 Symptomatic irreversible pulpitis 03/04/2024 Dental abscess 03/04/2024 Supernumerary teeth 03/04/2024 Retained deciduous tooth 03/04/2024 Skin lesion of breast 02/05/2024 Assessment & Plan (02/05/2024 6:05 PM EDT): Inflamed presumed sk, referral to derm as it does appear scabbed and irritated, uncertain of underlying lesion no compromise to surrounding skin Seborrheic keratoses 02/05/2024 Assessment & Plan (02/05/2024 6:04 PM EDT): Scattered on back, anticipatory guidance reviewed Skin tag 02/05/2024 Assessment & Plan (02/05/2024 6:07 PM EDT): Multiple punctate skin lesions around neck , benign nature reviewed. Management options reviewed Nummular dermatitis 09/23/2022 Assessment & Plan (09/23/2022 11:20 AM EST): Triamcinolone 0.1% cream, 80g compounded with 1lb jar of CeraVe applied after showers. Allergic rhinitis 07/02/2017 Gastroesophageal reflux disease 07/19/2013 Chronic sinusitis 06/25/2012 Carpal tunnel syndrome 03/19/2012 Depressive disorder 03/19/2012 Migraine headache 03/19/2012 Eczema 09/04/1959 Assessment & Plan (09/23/2022 11:20 AM EST): Triamcinolone 0.1% cream, 80g compounded with 1lb jar of CeraVe applied after showers. Mild asthma 09/04/1959 Assessment & Plan (06/30/2024 11:38 AM EDT): Stable in care with pulmonary, refill inhaler per request Chloasma 09[birth year]04/1959 Resolved Problems Problem Noted Date Diagnosed Date Resolved Date Vision changes 05/08/2024 06/27/2024 Encounters Date Type Department Care Team Description 11/15/2024 Population Health Risk Score [facility] ([facility]) Department [address] [place] [phone] Provider, Population Health Generic from Last 3 Months Immunizations Name Administration Dates Next Due Influenza injectable quadriv alent preservative free 09/23/2021,06/27/2019,10/21/2015 Influenza, IIV3, injectable 05/23/2011 Influenza, Split (incl. keiry fied surface antigen) 06/25/2012 Influenza, seasonal, injecta ble, preservative free 10/10/2016 Pfizer Covid-19 Vaccine 12+ 04/06/2021, 1 Pneumococcal Polysaccharide PPSV23 08/19/2010 TD (adult), 2 Lf tetanus tox oid, preservative free, adsorbed 03/19/2012 Family History Medical History Relation Name Comments Thyroid disease Father Thyroid disease Mother Relation Name Status Comments Father Mother Social History Tobacco Use Types Packs/Day Years Used Date Smoking Tobacco: Never Smokeless Tobacco: Never Tobacco Cessation:Counseling Given: Not Answered Alcohol Use Standard Drinks/Week Comments Never 0 (1 standard drink = 0.6 oz pur e alcohol) Housing Stability Answer Date Recorded What is your housing situation today? I have giorgio mendoza 05/27/[address] you li ve. Do you have problems with any of the following? None of the above 05/27/2024 Food Insecurity Answer Date Recorded Within the past 12 months, y ou worried that your food would run out before you got money to buy more: Never True 05/27/2024 Within the past 12 months,th e food you bought just didn't last and you didn't have enough money to get more: Never True Transportation Answer Date Recorded In the past 12 months, has l ack of transportation kept you from medical appts, meetings, work or from getting things needed for daily living? No 05/27/2024 Utilities Answer Date Recorded In the past 12 months, has t he electric, gas, oil or water company threatened to shut off services in your home? No 05/27/2024 Internet Access Answer Date Recorded Internet Access Q1 Yes 05/27/2024 Internet Access Q2 Not on file 05/27/2024 Comments Unknown Sex and Gender Information Value Date Recorded Sex Assigned at Female 07/04/2022 10:17 AM EDT Legal Sex Female 10:17 AM EDT Gender Identity Female 07/04/2022 10:17 AM EDT Sexual Orientation Straight 07/04/2022 10 :17 AM EDT Last Filed Vital Signs Vital Sign Reading Time Taken Comments Blood Pressure 115/76 07/09/2024 3:43 PM EST Pulse 81 07/09/2024 3:43 PM EST Temperature 36.7 ??C (98 ??F) 07/09/2024 3:43 PM EST Respiratory Rate 16 07/09/2024 3:43 PM EST Oxygen Saturation 99% 07/09/2024 3:43 PM EST Inhaled Oxygen Concentration - - Weight 69.4 kg (153 lb) 07/09/2024 3:43 PM EST Height 162.6 cm (5' 4 ) 06/03/2024 9:46 AM EDT Body Mass Index 26.26 06/03/2024 9:46 AM EDT Plan of Treatment Upcoming Encounters Date Type Department Care Team (Late st Contact Info) Description 05/27/2025 8:00 AM EDT Office Visit [facility] ADULT D[facility]AL [address] [place] [address] Simin Banda Health Maintenance Due Date Last Done Comments CT Colonography 1975 Colonoscopy 1975 Colorectal Cancer Screening 1975 Depression Screening 1975 FIT DNA/Cologuard 1975 FIT 1975 FOBT 1975 HIV Screening 1975 Sigmoidoscopy 1975 Alcohol/Substance Use Screening 1987 Family Planning (PISQ) 11/24/1990 Hepatitis C Screening 11/24/1993 Hepatitis B Vaccines (1 of 3 - 19+ 3-dose series) 11/24/1994 Pap Smear 11/24/1996 Cervical Cancer Screening 11/24/2005 HPV/Cotest 11/24/2005 Dental Oral Exam 03/18/2009 09/17/2008 Pneumococcal Vaccine: Pediatrics (0 to 5 Years) and At-Risk Patients (6 to 49) Years) (2 of 2 - PCV) 08/19/2011 08/19/2010 DTaP/Tdap/Td Vaccines (1 - Tdap) 03/20/2012 03/19/2012 Dental Prophylaxis 01/09/2015 07/11/2014, 1 10/24/2012, 11/09/2012, Additional history exists Dental X-Ray: Bitewings 07/12/2015 07/11/2014, 05/06 Mammogram 11/06/2023 11/05/2021, 09/05, 01/16/2019 COVID-19 Vaccine ( - season) 2024 04/06/2021, 03/17/2021 Influenza Vaccine (#1) 2024 , 06/27/2019, 10/10/2016, Additional history exists SDOH Screening 05/27/2025 05/27/2024 Tobacco Screening 07/09/2025 07/09/2024 Zoster Vaccines (1 of 2) 11/24/2025 Dental X-Ray: Full Mouth 03/05/2027 03/04/2024, 04/2013 RSV Patients and Patients Aged 60 years or older (1 - 1-dose 75+ series) 11/24/2050 HIB Vaccines Aged Out No longer eligi ble based on patient's age to complete this topic HPV Vaccines Aged Out No longer eligi ble based on patient's age to complete this topic Hepatitis A Vaccines Aged Out No long er eligible based on patient's age to complete this topic IPV Vaccines Aged Out No longer eligi ble based on patient's age to complete this topic Meningococcal Vaccine Aged Out No ze bubba eligible based on patient's age to complete this topic RSV under 20 months Aged Out No longe r eligible based on patient's age to complete this topic Rotavirus Vaccines Aged Out No longer eligible based on patient's age to complete this topic Procedures Procedure Name Priority Date/Time Associated Diagnosis Comments PANORAMIC RADIOGRAPHIC IMAGE Routine 03/04/2024 11:30 AM EDT MAMMOGRAM GENERIC Routine 11/05/2021 9:2 8 AM EST PROPHYLAXIS - ADULT Routine 07/11/2014 1 2:00 AM EST BITEWINGS - 4 RADIOGRAPHIC IMAGES Routine 07/11/2014 12:00 AM EST COMPREHENSIVE ORAL EVALUATION - NEW OR ESTABLISHED PATIENT Routine 09/17/2008 12:00 AM EST from Last 3 Months or Most Recently Relevant to Health Maintenance Results * Mammography Report 1 (11/05/2021 9:28 AM EST) Anatomical Region Laterality Modality Breast Bilateral Mammography 11/05/2021 9:28 AM EST Narrative 11/09/2021 9:34 AM EST Refer to the Notes tab for result details [facility] Procedure: Mammography Report 1 Procedure Note Provider, MD Elif - 11/27/2022 Refer to the Notes tab for result details [facility] Procedure: Mammography Report 1 us Darvin Ferro MD IMG BI PROCEDURES Final Resu lt from Last 3 Months or Most Recently Relevant to Health Maintenance Insurance [facility] MEDICAID STAND ADULT Care Teams Associate Financial Analyst Relationship Specialty Start Date End Date Liv New NP [address] [place] [id number] PCP - General Family Medicine 02/29/24
--- OUTSIDE RECORDS SUMMARY | 2024-12-16 09:54 | XMS_ITS | Encounter Summary ---
Author Organization [employer] [facility] Address [address] [facility] 7t [place] [address] Care Team Providers Care General Handling Supervisor Name Role Phone Darvin Ferro MD Primary Care Provider Judy Perdue Primary Care Provider [phone] Liv New NP Primary Care Provider [phone] Encounter Details Date Type Department Care Team (Latest Contact Info) Description 10/01/2018 Abstract [facility] CONVERSIONS Dental, Provider, DDS Social History Tobacco Use Types Packs/Day Years Used Date Smoking Tobacco: Never Assessed Comments Unknown Sex and Gender Information Value Date Recorded Sex Assigned at Female 07/04/2022 10:17 AM EDT Legal Sex Female 10:17 AM EDT Gender Identity Female 07/04/2022 10:17 AM EDT Sexual Orientation Straight 07/04/2022 10 :17 AM EDT documented as of this encounter Plan of Treatment Upcoming Encounters Date Type Department Care Team ( st Contact Info) Description 05/27/2025 8:00 AM EDT Office Visit [facility] ADULT DENTAL [address] [place] [address] Simin Banda documented as of this encounter Visit Diagnoses Not on filedocumented in this encounter Care Teams General Handling Supervisor Relationship Specialty Start Date End Date Darvin Ferro MD PCP - General Family Medicine 06/13/19 07/25/22 Judy Mendez FNP [address] [place] [address] PCP - General Family Medicine 07/26/22 02/28/24 Liv New NP [address] [place] [address] PCP - General Family Medicine 02/29/24 documented as of this encounter
--- OUTSIDE RECORDS SUMMARY | 2024-12-16 09:54 | XMS_ITS | Encounter Summary ---
Author Organization [employer] Address [address] [place] [address] 7 [place] [address] Care Team Providers Care Facilities Project Manager Name Role Phone Judy MendezP Primary Care Provider [phone] Liv New NP Primary Care Provider [phone] Reason for Visit * Reason Onset Date Comments PT1 01/17/2023 Encounter Details Date Type Department Care Team ([facility] st Contact Info) Description 01/17/2023 Telephone [facility] MEDICINE [address] [place] [address] Judy Mendez FNP [address] [place] [address] PT1 Social History Tobacco Use Types Packs/Day [...] encounter Miscellaneous Notes * Telephone Encounter - Madiha Sparks - 01/31/2023 9:32 AM EDT Patient will recieve approval / denial letter via mail. PT-1 Request Number [id number] is Authorized - [facility] [address] [facility] [address] PT-1 Request Number [id number] is Pending - [facility] Specialty Offices [address] [place] [address] [place] [phone] * Telephone Encounter - Yolanda Cobian - 01/17/2023 2:11 PM EDT PT1- Location: [address] [place] [address] Dr. [place] Francine [address] Phone: Date: 01/26/23 Time: 10:45 am Sap Pp Consultant Needed: yes Wheel Chair Access? No PT1- Location: [address] [place] [address] Date: 02/22/23 Time: 10:15 am Sap Pp Consultant Needed: yes Wheel Chair Access? No documented in this encounter Plan of Treatment Upcoming Encounters Date Type Department Care Team (Late st Contact Info) Description 05/27/2025 8:00 AM EDT Office Visit [facility] ADULT DENTAL [address] [place] [address] Simin Banda documented as of this encounter Visit Diagnoses Not on filedocumented in this encounter Care Teams Facilities Project Manager Relationship Specialty Start Date End Date Judy Mendez FNP [address] [place] [address] PCP - General Family Medicine 07/26/22 02/28/24 Liv New NP [address] [place] [address] PCP - General Family Medicine 02/29/24 documented as of this encounter
--- OUTSIDE RECORDS SUMMARY | 2024-12-16 09:54 | XMS_ITS | Encounter Summary ---
Author Organization [employer] Address [address] [facility] 7t [place] [address] Care Team Providers Care Teaching Associate Name Role Phone Judy Mendez Primary Care Provider [phone] Liv New NP Primary Care Provider [phone] Encounter Details Date Type Department Care Team (Late Contact Info) Description 04/24/2023 Orders Only [facility] MED & PEDS [address] [place], [place] [id number] Judy Mendez FNP [address] [place] [address] Fibromyalgia (Primary Dx) Social History Tobacco Use Types Packs/Day Years [...] Description 05/27/2025 8:00 AM EDT Office Visit [facility] ADULT DENTAL [address] [place] [address] Simin Banda documented as of this encounter Visit Diagnoses Diagnosis Fibromyalgia- Primary Unspecified myalgia and myositis documented in this encounter Care Teams Teaching Associate Relationship Specialty Start Date End Date Judy Mendez FNP [address] [place] [address] PCP - General Family Medicine 07/26/22 02/28/24 Liv New NP [address] [place] [address] [place] [address] PCP - General Family Medicine 02/29/24 documented as of this encounter
--- OUTSIDE RECORDS SUMMARY | 2024-12-16 09:54 | XMS_ITS | Encounter Summary ---
Author Organization [employer] Address [address] [place] [address] [address] [place] [address] Care Team Providers Care Dressmaking Teacher Name Role Phone Judy MendezP Primary Care Provider [phone] Liv New NP Primary Care Provider [phone] Reason for Visit * Reason Onset Date Comments TP appt 01/04/2023 Encounter Details Date Type Department Care Team (Late Contact Info) Description 01/04/2023 Telephone [facility] MEDICINE [address] [place] [address] Judy Mendez FNP [address] [place] [address] TP appt Social History Tobacco Use Types Packs/Day Years [...] encounter Miscellaneous Notes * Telephone Encounter - Paige Steele - 01/04/2023 4:45 PM EDT Tc from pt requesting a TP appt with provider. Please contact pt at [phone] Bolivian Speaker documented in this encounter Plan of Treatment Upcoming Encounters Date Type Department Care Team (Late st Contact Info) Description 05/27/2025 8:00 AM EDT Office Visit [facility] ADULT DENTAL [address] [place] [address] Simin Banda documented as of this encounter Visit Diagnoses Not on filedocumented in this encounter Care Teams Dressmaking Teacher Relationship Specialty Start Date End Date Judy Mendez FNP [address] [place] [address] PCP - General Family Medicine 07/26/22 02/28/24 Liv New NP [address] [place] [address] PCP - General Family Medicine 02/29/24 documented as of this encounter
--- OUTSIDE RECORDS SUMMARY | 2024-12-16 09:54 | XMS_ITS | Encounter Summary ---
Author Organization [employer] Address [address] [facility] 7t [place] [address] Care Team Providers Care Repair Table Operator Name Role Phone Liv New NP Primary Care Provider [phone] Reason for Visit * Reason Onset Date Comments PT-1 05/30/2024 Encounter Details Date Type Department Care Team ([facility] st Contact Info) Description 05/30/2024 Telephone [facility] MEDICINE [address] [place], [place] [phone] Liv New NP [address] [place], [place] [phone] PT-1 Social History Tobacco Use Types Packs/Day Years Used Date Smoking Tobacco: Never Smokeless Tobacco: Never Alcohol Use Standard Drinks/Week Comments Never 0 (1 standard drink = 0.6 oz pur e alcohol) Housing Stability Answer Date Recorded What is your housing situation today? I have giorgioaustin mendoza 05/27/[address] you [...] encounter Miscellaneous Notes * Telephone Encounter - Tunde Puente - 05/30/2024 2:50 PM EDT Patient calling requesting PT1 Home Address verified: Y/N: Yes Provider name or facility name: [facility] Address: [address] [place] [address] Escort needed: Y/N: Yes Do you have a wheelchair: Y/N: No If yes- Manual or electric: no Visits: 4 to five times a month Patient calling requesting PT1 Home Address verified: Y/N: Yes Provider name or facility name: [facility] Facility Address: [address] [place], [place] Escort needed: Y/N: Yes Do you have a wheelchair: Y/N: No If yes- Manual or electric: no Visits: 6 documented in this encounter Plan of Treatment Upcoming Encounters Date Type Department Care Team ([facility] st Contact Info) Description 05/27/2025 8:00 AM EDT Office Visit [facility] ADULT DENTAL [address] [place] [address] Simin Banda documented as of this encounter Visit Diagnoses Not on filedocumented in this encounter Care Teams Repair Table Operator Relationship Specialty Start Date End Date Liv New NP [address] [place] [address] PCP - General Family Medicine 02/29/24 documented as of this encounter
--- OUTSIDE RECORDS SUMMARY | 2024-12-16 09:54 | XMS_ITS | Encounter Summary ---
Author Organization [employer] Address [address] [facility] [address] 7[address] [place] [address] Care Team Providers Care First Assistant Manager Name Role Phone JeisonLiv rueda MARGARETTE Primary Care Provider [phone] Reason for Visit * Reason Onset Date Comments no show reschedule 08/21/2024 Encounter Details Date Type Department Care Team ([facility] st Contact Info) Description 08/21/2024 Telephone [facility] ADULT DENTAL [address] [place] [address] Simin Banda no show reschedule Social History Tobacco Use Types Packs/Day Years [...] encounter Miscellaneous Notes * Telephone Encounter - Abida Johnson - 08/21/2024 10:03 AM EST Patient called in looking to reschedule a no show appt. Patient has been informed that she will geta call from the office when it is her turn again to come in. She asked how soon that will be. It was explained to patient that as a no show the patient then goes on a waiting list and the office willreach out when their appt becomes available again. Patient understood DR documented in this encounter Plan of Treatment Upcoming Encounters Date Type Department Care Team (Late st Contact Info) Description 05/27/2025 8:00 AM EDT Office Visit [facility] ADULT DENTAL [address] [place] [address] Simin Banda documented as of this encounter Visit Diagnoses Not on filedocumented in this encounter Care Teams First Assistant Manager Relationship Specialty Start Date End Date Liv New NP [address] [place] [address] PCP - General Family Medicine 02/29/24 documented as of this encounter
== END 2024-12-16 09:02 | disposition home or self-care (01) ==
LOC: HO.MAMMO 09:01
PROVIDERS: PCP Nurse Practitioner Family; Visit Provider Nurse Practitioner Family
DX: Z12.31 Encounter for screening mammogram for malignant neoplasm of breast (principal)
CPT/HCPCS: 77063; 77067

== ENCOUNTER → 2024-12-16 09:30 | Outpatient (BNV) | payer MEDICAID, SELFPAY | PROVIDERS: PCP Nurse Practitioner Family; Visit Provider Internal Medicine | DX: Z12.31 Encounter for screening mammogram for malignant neoplasm of breast (principal) | CPT/HCPCS: 77063; 77067 ==

== ENCOUNTER 2025-03-20 08:43 | Outpatient (AMB) | payer MEDICAID, SELFPAY ==
--- OUTSIDE RECORDS SUMMARY | 2025-03-20 08:54 | XMS_ITS | Encounter Summary ---
Author Organization [employer] Address [address] [facility] 7t [place] [address] Care Team Providers Care Facility Practice Specialist Name Role Phone Liv New NP Primary Care Provider [phone] Reason for Visit * Reason Onset Date Comments PT-1 05/30/2024 Encounter Details Date Type Department Care Team ([facility] st Contact Info) Description 05/30/2024 Telephone [facility] MEDICINE [address] [place], [place] [phone] Liv New NP [address] [place] [address] PT-1 Social History Tobacco Use Types Packs/Day [...] Y/N: Yes Provider name or facility name: [facility] Address: [address] [place] [address] Escort needed: Y/N: Yes Do you have a wheelchair: Y/N: No If yes- Manual or electric: no Visits: 4 to five times a month Patient calling requesting PT1 Home Address verified: Y/N: Yes Provider name or facility name: [facility] Facility Address: [address] [place], [place] Escort needed: Y/N: Yes Do you have a wheelchair: Y/N: No If yes- Manual or electric: no Visits: 6 documented in this encounter Plan of Treatment Upcoming Encounters Date Type Department Care Team ([facility] Contact Info) Description 05/27/2025 8:00 AM EDT Office Visit [facility] ADULT DENTAL [address] [place] [address] Simin Banda documented as of this encounter Visit Diagnoses Not on filedocumented in this encounter Care Teams Facility Practice Specialist Relationship Specialty Start Date End Date Liv New NP [address] [place] [address] PCP - General Family Medicine 02/29/24 documented as of this encounter
[2025-03-20 09:19] VITALS: BP 114/64; PULSE 74; O2SAT 98; BMI 29.7
--- NOTE | 2025-03-20 09:19 | MHC.OFFVIS ---
Vital Signs 03/20/25 09:19 Height 5 ft 4 in Weight 173 lb 1.006 oz BMI 29.7 BP 114/64 Blood Pressure Location Rt brachial Position Sitting Pulse 74 Pulse Source Pulse Oximeter Pulse Oximetry (%) 98 Oxygen Delivery Method Room Air Intake Visit Reasons: Asthma Allergies Penicillins Allergy (Severe, Verified 03/20/25 09:22) Shortness of Breath HPI Comments Details: The patient is a 49 y/o woman with known history of asthma and chronic allergic rhinitis. She has significant nasal congestion moderate severity. She was evaluated by ENT for this ongoing significant issue. Did did not perform a laryngoscopy which would have been helpful. In the meantime she has been started on Xolair to see if this any improvement in the inflammation of her nasal turbinates. we have tried prescribing her Sudafed as a better disease decongestant, however, her insurance does not cover. I did find her a generic Sudafed that she can find for example at [employer] that have be reasonable for her to be able to buy [id number]. She should continue using the Sudafed or generic until I see her and couple months. In the meantime will see the effective Xolair. She does have an increased cough with clear mucus. She does get good response to her respiratory therapy at this time. 09/15/2023 the patient is here for a pulmonary follow-up visit. Her breathing has gotten worse since her QVAR has not been provided from the pharmacy. Apparently she needs a prior approval now after the year started. We did submitted and should be answered back in 24 hours. The meantime I did give the patient some prednisone in case her symptoms worsen she can always start that. She does continue to use the Stiolto. She also responded well to the triple inhaler in the past, Treleg[employer] but was not cover. We can also send her back to [employer] to see if this covered now. She continues to have significant nasal congestion and difficulty breathing. She has been on the Tezspire now injection about 3 months. She has not seen any significant improvement of the breathing. She will follow-up with allergy in the next few months to see if his something she is going to continue. We talked about the importance. She is willing to try small dose Sudafed. Eighty be [id number] therefore I did give her the recommendation to either start with 30 mg 60 mg and just see if that provides some relief with her significant nasal congestion. She has been evaluated by ENT in the past and did did not want to intervene. 11/22/2023 the patient is here for a pulmonary follow-up visit. The patient has been complaining of worsening respiratory symptoms for last couple days. She had been doing well. She still complains of the chronic sinusitis. However, she did take the Sudafed finally but it caused some stomach upset so therefore she stopped it. It did clear some her sinuses however. The patient now is having some nasal congestion sore throat and worsening cough. She feels like she has a cold. Denies any joint pains or flu-like symptoms. She really does not want to get a swab done for the flu right now. Her respiratory exam is fairly good she does have diminished breath sounds with a prolonged expiratory phase. No significant wheezing. No crackles suggest pneumonia. Will go ahead and treat her for an upper airway respiratory illness. If the patient is no better she can take some prednisone but at this point she does not need it. She did have evaluation with allergy and immunology. The patient will undergo allergy testing soon. I did encourage him not to take the prednisone that she gets worse because is going to affect the results of her allergy testing. She continues on the biologic therapy once she has her testing completed she will talk to the principal software engineer about any changes on her biologic regimen. 04/22/2024 the patient is here for a pulmonary follow-up visit. Overall she has been doing okay. She has been noticing worsening sinus congestion lately. She has been tolerating the Sudafed with good effect. Although she needs to buy it [id number] because is not covered by her insurance. She also started allergy shots. She is getting those every 2 weeks. She still continues with the biologic therapy, test prior. She will continue that at this time. She continues use her respiratory therapy. Otherwise she is without any new complaints. No recent imaging to review at this time. 08/16/2024 the patient is here for a pulmonary follow-up visit. She started developing worsening nasal congestion and postnasal drip. Cough is croupy in nature. She has been sick now for about a week. Denies any sick contacts. Denies any fevers or chills. She continues with her allergy shots in her asthma biologic therapy with her principal software engineer. She continues on her respiratory therapy that is been working well. No significant wheezing on exam right now. No need for steroids. Will go ahead and treat her for a upper respiratory illness. If her symptoms worsen she will call back otherwise will follow-up in 3 months. 11/15/2024 the patient is here for a pulmonary follow-up visit. Overall the patient is doing a little bit better. She did start developing a cough nonproductive in nature the last few days. Qgyi-on-fdzisnbl severity. Also has runny nose. In addition to that she did have a significant lower respiratory infection. Had a significant congested cough. We had Center prescription antibiotics for the however she was no better. She ended up getting a course of Levaquin in the definitely helped her breathing. She continues on the Tezspire. Continues with respiratory therapy. No recent imaging studies to review. Will prescribe her some Tessalon Perles for cough right now and some ipratropium nasal spray. If her symptoms do worsen she can start a culture Medrol and also doxycycline. 03/20/2025 the patient is here for a pulmonary follow-up visit. She continues to actually do fairly well. She has been on the allergy shots and also on the Tezspire. The therapy has been affecting beneficial. Her nasal congestion has improved dramatically. The patient also continues her respiratory therapy as prescribed. She continues to need her rescue inhaler but typically less than twice a week. She is more concerned about her son was diagnosed with a condition that has a see a specialist. But overall she is doing well. Will follow-up in 4 months. If she has any issues prior to this she will call for an earlier assessment. 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 Review of Systems Const Denies night sweats ENT Denies change in voice, Denies lip swelling, Denies mouth pain, Reports nasal congestion, Reports nasal discharge, Denies post nasal drip, Denies sinus pain, Denies sinus pressure and Denies tongue swelling Card Denies chest pain and Denies dyspnea on exertion Resp Reports chest congestion, Reports cough, Denies dyspnea on exertion and Reports wheezing GI Denies abdominal pain Musc Denies no additional complaints Neuro Denies Neuro-related abnormal movements Psych Denies no additional complaints Carlos/Lymph Denies easy bleeding and Denies lymphadenopathy Aller/Immun Denies lip swelling, Denies tongue swelling and Reports wheezing Physical Exam Vital Signs: Last Vital Signs Pulse 74 03/20/25 09:19 BP 114/64 03/20/25 09:19 Pulse Ox 98 03/20/25 09:19 Oxygen Delivery Method Room Air 03/20/25 09:19 BMI result Body Mass Index 29.7 Const General: comfortable Orientation/consciousness: patient oriented x3 Neck Neck: Yes normal visual inspection, Yes full ROM and Yes no lymphadenopathy Chest Chest palpation & inspection: normal inspection of the chest Resp Effort & Inspection: normal respiratory effort and No prolonged expiratory phase Auscultation: clear to auscultation bilaterally and no wheezes Cardio Rate: regular rate Rhythm: regular rhythm Heart sounds: S1 normal heart sound present and S2 normal heart sound present GI Palpation (GI): Soft to palpation and nontender Auscultation: normal bowel sounds Skin General skin exam: rashes and/or lesions noted Neuro General: patient oriented x3 Assessment & Plan Assessment & Plan (1) Asthma: Code(s): J45.909 - Unspecified asthma, uncomplicated Category: Medical Qualifiers: Asthma complication type: uncomplicated Asthma persistence: persistent Asthma severity: moderate Qualified Code(s): J45.40 - Moderate persistent asthma, uncomplicated (2) Chronic allergic rhinitis: Code(s): J30.9 - Allergic rhinitis, unspecified Category: Medical (3) Sinusitis: Code(s): J32.9 - Chronic sinusitis, unspecified Category: Medical Qualifiers: Chronicity: chronic Sinusitis location: unspecified location Qualified Code(s): J32.9 - Chronic sinusitis, unspecified (4) Cough: Code(s): R05.9 - Cough, unspecified Category: Medical Qualifiers: Cough type: chronic Qualified Code(s): R05.3 - Chronic cough Plan Continue Tezspire with Allergy Allergy shots every 2 weeks Mucinex DM continue reflux diet continue Pepcid Continue Stiolto continue QVAR Continue Singulair Benadryl as needed CXR sinus xray F/U 3-4 months Coding Level of Care Code Est Pt Level 4 (95623) Diagnoses Moderate persistent asthma without complication J45.40 Asthma complication type: uncomplicated Asthma persistence: persistent Asthma severity: moderate Chronic allergic rhinitis J30.9 Chronic sinusitis, unspecified location J32.9 Chronicity: chronic Sinusitis location: unspecified location Chronic cough R05.3 Cough type: chronic Time Spent (min) 16
== END 2025-03-20 09:54 | disposition home or self-care (01) ==
LOC: HO.HPS 08:44
PROVIDERS: PCP Nurse Practitioner Family; Visit Provider Hospitalist
DX: J45.40 Moderate persistent asthma, uncomplicated (principal); J30.9 Allergic rhinitis, unspecified; J32.9 Chronic sinusitis, unspecified; R05.3 Chronic cough
CPT/HCPCS: 99214

== ENCOUNTER → 2025-03-20 08:43 | Outpatient (BNVA) | payer MEDICAID, SELFPAY | PROVIDERS: PCP Nurse Practitioner Family; Visit Provider Hospitalist | DX: J45.40 Moderate persistent asthma, uncomplicated (principal); J30.9 Allergic rhinitis, unspecified; J32.9 Chronic sinusitis, unspecified; R05.3 Chronic cough | CPT/HCPCS: 99212 ==

== ENCOUNTER 2025-04-22 11:43 | Outpatient (AMB) | payer MEDICAID, SELFPAY ==
--- NOTE | 2025-04-22 12:45 | MHC.OFFVIS ---
Vital Signs 04/22/25 12:47 Height 5 ft 4 in Weight 173 lb BMI 29.7 Handedness Right Intake Visit Reasons: OV- EMG review 12/15/23/ Left CTS Intake Note: Faye is a 49 year old right hand dominant Pashto speaking woman who presents today for an EMG review for her bilateral hands. EMG/NCS done on 12/15/23. Left greater than right. Reports she is now having pain and tingling in the right elbow. Tylenol and Motrin does not offer her any relief. IMPRESSION: 1. This is an abnormal study. 2. There is electrodiagnostic evidence for left moderate-severe and right mild/borderline median neuropathy at the wrist, consistent with carpal tunnel syndrome. 3. There is no electrodiagnostic evidence for ulnar neuropathy, brachial plexopathy, or cervical radiculopathy. Workers' Compensation Mediator Required: Yes Workers' Compensation Mediator Language: O[employer] Services: Workers' Compensation Mediator Present (iPad) Workers' Compensation Mediator Name: [id number] Allergies Penicillins Allergy (Severe, Verified 04/22/25 12:51) Shortness of Breath HPI HPI OV- EMG review 12/15/23/ Left CTS: Details: Faye is a 49 year old right hand dominant Pashto speaking woman who returns with several complaints today. She is seen today with her son. She complains of bilateral hand numbness left worse than right, primarily in the median nerve distribution. She denies any current numbness in her small finger. Symptoms on the left are intermittent but daily, primarily at night, occasionally throughout the day and with activities. She reports some occasional numbness in her right hand. She says this has been present for ~7 years now. She had a NCS done in ~2019 that showed carpal tunnel syndrome, but denies any prior treatment. She also complains of pain at the base of the thumbs bilaterally. She has a hx of left RTC arthropathy and Fibromyalgia. She follows with Rheumatology for these conditions. She says she is out of work on Disability due to this, asthma, fibromyalgia and anxiety. She is on Lurasidone and several other anti-depressants. 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 Normal sensation in the ulnar nerve distribution No thenar or intrinsic wasting Good APB muscle belly firing and good finger cross Vascular: Cap refill brisk ROM: She can make a fist and extend all her digits No locking or catching Tender over the basal joints bilaterally No tenderness over the 1st dorsal compartments No tenderness over the a1 jenelle or MCP joints bilaterally No locking or catching Nerve Conduction Study: IMPRESSION: 1. This is an abnormal study. 2. There is electrodiagnostic evidence for left moderate-severe and right mild/borderline median neuropathy at the wrist, consistent with carpal tunnel syndrome. 3. There is no electrodiagnostic evidence for ulnar neuropathy, brachial plexopathy, or cervical radiculopathy. Evelina Olguin MD, CHANDRAKANT 12/15/23 Psych Appearance: grossly normal Affect: normal affect Attitude: cooperative Assessment & Plan Assessment & Plan (1) Bilateral carpal tunnel syndrome: Code(s): G56.03 - Carpal tunnel syndrome, bilateral upper limbs Category: Medical (2) Bilateral thumb pain: Code(s): M79.644 - Pain in right finger(s); M79.645 - Pain in left finger(s) Category: Medical (3) Fibromyalgia: Code(s): M79.7 - Fibromyalgia Category: Medical Plan Assessment & Plan: 1. Left carpal tunnel syndrome, moderate-severe Symptoms intermittent, but daily, worse at night, though also present in clinic today. I educated her about this condition I discussed operative and non-operative treatment options I also discussed the risks of delaying treatment. The patient would like to proceed with surgery The risks and benefits of operative treatment were discussed with the patient and the patient wishes to proceed with surgery. These risks include, but are not limited to risk of damage to blood vessels, nerves, tendons, infection, recurrence, incomplete relief of preoperative symptoms, persistent pain, possible need for further surgery and the risks associated with regional blocks and anesthesia. The plan is to take the patient to the operating room sometime in the next few weeks for the following procedures: 1. Left carpal tunnel release, under local All of the preoperative paperwork including the consent was reviewed today. All the patient's questions were answered. The patient understands that they will be contacted by our ticket scheduler soon to schedule this procedure She denies Diabetes, blood thinners, heart, lung, kidney issues She has Fibromyalgia, asthma, and depression 2. Bilateral basal joint pain Hx of Fibromyalgia 3. Right carpal tunnel syndrome, mild Symptoms intermittent & occasional Not as bothersome as her left side Scribed for Gabrielle Sahu MD by Carlos Miranda medical laboratory manager, on 04/22/25 at 1:05 PM, EST. Coding Level of Care Code Est Pt Level 4 (38858) Diagnoses Bilateral carpal tunnel syndrome G56.03 Bilateral thumb pain M79.644; M79.645 Fibromyalgia M79.7
[2025-04-22 12:47] VITALS: BMI 29.7
== END 2025-04-22 13:30 | disposition home or self-care (01) ==
LOC: HO.HOS 11:44
PROVIDERS: Visit Provider Orthopaedic Surgery
DX: G56.03 Carpal tunnel syndrome, bilateral upper limbs (principal); M79.644 Pain in right finger(s); M79.645 Pain in left finger(s); M79.7 Fibromyalgia
CPT/HCPCS: 99214

== ENCOUNTER → 2025-04-22 11:43 | Outpatient (BNVA) | payer MEDICAID, SELFPAY | PROVIDERS: Visit Provider Orthopaedic Surgery | DX: G56.03 Carpal tunnel syndrome, bilateral upper limbs (principal); M79.644 Pain in right finger(s); M79.645 Pain in left finger(s); M79.7 Fibromyalgia | CPT/HCPCS: 99212 ==

== ENCOUNTER 2025-06-25 09:43 | Outpatient (AMB) | payer MEDICAID, SELFPAY ==
[2025-06-25 09:47] VITALS: BP 110/68; PULSE 80; O2SAT 97; BMI 30.8
--- NOTE | 2025-06-25 09:47 | A.OFFVIS_ITS ---
Vital Signs 06/25/25 09:47 Height 5 ft 4 in Weight 179 lb 10.828 oz BMI 30.8 BP 110/68 Blood Pressure Location Lt brachial Position Sitting Pulse 80 Pulse Source Pulse Oximeter Pulse Oximetry (%) 97 Oxygen Delivery Method Room Air Intake Visit Reasons: asthma Photo Journalist Required: Yes Photo Journalist Services: Photo Journalist Offered & Declined Photo Journalist Name: MD speaks ukrainian Information Interpreted: clinical only Accompanied by: Self / Same As Patient Allergies Penicillins Allergy (Severe, Verified 06/25/25 09:51) Shortness of Breath HPI Comments Details: The patient is a 49 y/o woman with known history of asthma and chronic allergic rhinitis. She has significant nasal congestion moderate severity. She was evaluated by ENT for this ongoing significant issue. Did did not perform a laryngoscopy which would have been helpful. In the meantime she has been started on Xolair to see if this any improvement in the inflammation of her nasal turbinates. we have tried prescribing her Sudafed as a better disease decongestant, however, her insurance does not cover. I did find her a generic Sudafed that she can find for example at [employer] that have be reasonable for her to be able to buy [id number]. She should continue using the Sudafed or generic until I see her and couple months. In the meantime will see the effective Xolair. She does have an increased cough with clear mucus. She does get good response to her respiratory therapy at this time. 09/15/2023 the patient is here for a pulmonary follow-up visit. Her breathing has gotten worse since her QVAR has not been provided from the pharmacy. Apparently she needs a prior approval now after the year started. We did submitted and should be answered back in 24 hours. The meantime I did give the patient some prednisone in case her symptoms worsen she can always start that. She does continue to use the Stiolto. She also responded well to the triple inhaler in the past, Trelegy but was not cover. We can also send her back to Trelegy to see if this covered now. She continues to have significant nasal congestion and difficulty breathing. She has been on the Tezspire now injection about 3 months. She has not seen any significant improvement of the breathing. She will follow-up with allergy in the next few months to see if his something she is going to continue. We talked about the importance. She is willing to try small dose Sudafed. Eighty be [id number] therefore I did give her the recommendation to either start with 30 mg 60 mg and just see if that provides some relief with her significant nasal congestion. She has been evaluated by ENT in the past and did did not want to intervene. 11/22/2023 the patient is here for a pulmonary follow-up visit. The patient has been complaining of worsening respiratory symptoms for last couple days. She had been doing well. She still complains of the chronic sinusitis. However, she did take the Sudafed finally but it caused some stomach upset so therefore she stopped it. It did clear some her sinuses however. The patient now is having some nasal congestion sore throat and worsening cough. She feels like she has a cold. Denies any joint pains or flu-like symptoms. She really does not want to get a swab done for the flu right now. Her respiratory exam is fairly good she does have diminished breath sounds with a prolonged expiratory p hase. No significant wheezing. No crackles suggest pneumonia. Will go ahead and treat her for an upper airway respiratory illness. If the patient is no better she can take some prednisone but at this point she does not need it. She did have evaluation with allergy and immunology. The patient will undergo allergy testing soon. I did encourage him not to take the prednisone that she gets worse because is going to affect the results of her allergy testing. She continues on the biologic therapy once she has her testing completed she will talk to the copier and printer field technician about any changes on her biologic regimen. 04/22/2024 the patient is here for a pulmonary follow-up visit. Overall she has been doing okay. She has been noticing worsening sinus congestion lately. She has been tolerating the Sudafed with good effect. Although she needs to buy it [id number] because is not covered by her insurance. She also started allergy shots. She is getting those every 2 weeks. She still continues with the biologic therapy, test prior. She will continue that at this time. She continues use her respiratory therapy. Otherwise she is without any new complaints. No recent imaging to review at this time. 08/16/2024 the patient is here for a pulmonary follow-up visit. She started developing worsening nasal congestion and postnasal drip. Cough is croupy in nature. She has been sick now for about a week. Denies any sick contacts. Denies any fevers or chills. She continues with her allergy shots in her asthma biologic therapy with her copier and printer field technician. She continues on her respiratory therapy that is been working well. No significant wheezing on exam right now. No need for steroids. Will go ahead and treat her for a upper respiratory illness. If her symptoms worsen she will call back otherwise will follow-up in 3 months. 11/15/2024 the patient is here for a pulmonary follow-up visit. Overall the patient is doing a little bit better. She did start developing a cough nonprod uctive in nature the last few days. [id number] severity. Also has runny nose. In addition to that she did have a significant lower respiratory infection. Had a significant congested cough. We had Center prescription antibiotics for the however she was no better. She ended up getting a course of Levaquin in the definitely helped her breathing. She continues on the Tezspire. Continues with respiratory therapy. No recent imaging studies to review. Will prescribe her some Tessalon Perles for cough right now and some ipratropium nasal spray. If her symptoms do worsen she can start a culture Medrol and also doxycycline. 03/20/2025 the patient is here for a pulmonary follow-up visit. She continues to actually do fairly well. She has been on the allergy shots and also on the T ezspire. The therapy has been affecting beneficial. Her nasal congestion has improved dramatically. The patient also continues her respiratory therapy as prescribed. She continues to need her rescue inhaler but typically less than twice a week. She is more concerned about her son was diagnosed with a condition that has a see a specialist. But overall she is doing well. Will follow-up in 4 months. If she has any issues prior to this she will call for an earlier assessment. 06/25/2025 the patient is here for a sick visit. she has been complaining of worsening sinus pressure in the pain for the last 5 days. Prior to that she was doing okay. She continues on her allergy shots and also biologic therapies. Her respiratory therapy has been fairly effective recently. She denies fevers or chills. Does not feel like it is COVID. Denies any chest congestion. Mainly just sinus pressure. Moderate severity. Along with the headaches. Otherwise the patient is without any other complaints. Will go ahead and treat her for sinusitis and she will follow-up in 3-4 months. 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 Review of Systems Const Denies night sweats ENT Denies change in voice, Denies lip swelling, Denies mouth pain, Reports nasal congestion, Reports nasal discharge, Reports nasal obstruction, Denies post nasal drip, Reports sinus pain, Reports sinus pressure and Denies tongue swelling Card Denies chest pain and Denies dyspnea on exertion Resp Reports chest congestion, Reports cough, Denies dyspnea on exertion and Reports wheezing GI Denies abdominal pain Musc Denies no additional complaints Neuro Denies Neuro-related abnormal movements Psych Denies no additional complaints Carlos/Lymph Denies easy bleeding and Denies lymphadenopathy Aller/Immun Denies lip swelling, Denies tongue swelling and Reports wheezing Physical Exam Vital Signs: Last Vital Signs Pulse 80 06/25/25 09:47 BP 110/68 06/25/25 09:47 Pulse Ox 97 06/25/25 09:47 Oxygen Delivery Method Room Air 06/25/25 09:47 BMI result Body Mass Index 30.8 Const General: comfortable Orientation/consciousness: patient oriented x3 Neck Neck: Yes normal visual inspection, Yes full ROM and Yes no lymphadenopathy Chest Chest palpation & inspection: normal inspection of the chest Resp Effort & Inspection: normal respiratory effort and No prolonged expiratory phase Auscultation: clear to auscultation bilaterally and no wheezes Cardio Rate: regular rate Rhythm: regular rhythm Heart sounds: S1 normal heart sound present and S2 normal heart sound present GI Palpation (GI): Soft to palpation and nontender Auscultation: normal bowel sounds Skin General skin exam: rashes and/or lesions noted Neuro General: patient oriented x3 Assessment & Plan Assessment & Plan (1) Asthma: Code(s): J45.909 - Unspecified asthma, uncomplicated Category: Medical Qualifiers: Asthma complication type: uncomplicated Asthma persistence: persistent Asthma severity: moderate Qualified Code(s): J45.40 - Moderate persistent asthma, uncomplicated (2) Chronic allergic rhinitis: Code(s): J30.9 - Allergic rhinitis, unspecified Category: Medical (3) Sinusitis: Code(s): J32.9 - Chronic sinusitis, unspecified Category: Medical Qualifiers: Chronicity: chronic Sinusitis location: unspecified location Qualified Code(s): J32.9 - Chronic sinusitis, unspecified (4) Cough: Code(s): R05.9 - Cough, unspecified Category: Medical Qualifiers: Cough type: chronic Qualified Code(s): R05.3 - Chronic cough Plan Continue Tezspire with Allergy Allergy shots every 2 weeks Mucinex DM continue reflux diet continue Pepcid Continue Stiolto continue QVAR Continue Singulair Benadryl as needed F/U 3-4 months Medications: New codeine-guaifenesin 10-100 mg/5 mL 10 mL PO Q6H PRN 300 mL 0RF cough 10 days benzonatate 200 mg PO BID PRN 60 caps 3RF cough 30 days Refilled albuterol sulfate 2.5 mg (3 mL) PO Q4H PRN 150 mL 11RF for wheezing azithromycin 500 mg PO DAILY 5 tabs 0RF 5 days methylprednisolone (Medrol (Miki)) PO PER PKG DIR 21 ea 0RF 6 days montelukast 10 mg PO BEDTIME 30 tabs 11RF J45.909 - Unspecified asthma, uncomplicated Coding Level of Care Code Est Pt Level 4 (92101) Diagnoses Moderate persistent asthma without complication J45.40 Asthma complication type: uncomplicated Asthma persistence: persistent Asthma severity: moderate Chronic allergic rhinitis J30.9 Chronic sinusitis, unspecified location J32.9 Chronicity: chronic Sinusitis location: unspecified location Chronic cough R05.3 Cough type: chronic Time Spent (min) 16
--- OUTSIDE RECORDS SUMMARY | 2025-06-25 11:24 | XMS_ITS | Encounter Summary ---
Author Organization [employer] Address [address] [place] [address] Care Team Providers Care Day Care Center Director Name Role Phone Lvi New NP Primary Care Provider [phone] Reason for Visit * Reason Onset Date Comments PT-1 05/30/2024 Encounter Details Date Type Department Care Team ([facility] st Contact Info) Description 05/30/2024 Telephone [facility] MEDICINE [address] [place], [place] [id number] Liv New NP [address] [place] [address] PT-1 Social History Tobacco Use Types Packs/Day [...] Y/N: Yes Provider name or facility name: [facility] Address: [address] [place] [address] Escort needed: Y/N: Yes Do you have a wheelchair: Y/N: No If yes- Manual or electric: no Visits: 4 to five times a month Patient calling requesting PT1 Home Address verified: Y/N: Yes Provider name or facility name: [facility] Facility Address: [address] [place], [place] Escort needed: Y/N: Yes Do you have a wheelchair: Y/N: No If yes- Manual or electric: no Visits: 6 documented in this encounter Plan of Treatment Upcoming Encounters Date Type Department Care Team ([facility] Contact Info) Description 11/11/2025 10:00 AM EDT Office Visit [facility] ADULT DENTAL [address] [place] [address] Ryan, Lauren [address] [place] [address] documented as of this encounter Visit Diagnoses Not on filedocumented in this encounter Care Teams Day Care Center Director Relationship Specialty Start Date End Date Liv New NP [address] [place] [address] PCP - General Family Medicine 02/29/24 documented as of this encounter
--- OUTSIDE RECORDS SUMMARY | 2025-06-25 11:25 | XMS_ITS | Encounter Summary ---
Author Organization [employer] [facility] Address [address] [place] [address] Care Team Providers Care Family Dentist Name Role Phone Darvin Ferro MD Primary Care Provider Judy Perdue Primary Care Provider [phone] Liv New NP Primary Care Provider [phone] Encounter Details Date Type Department Care Team (Latest Contact Info) Description 10/01/2018 Abstract [facility] CONVERSIONS Dental, Provider, DDS Social History Tobacco [...] Care Team (Late st Contact Info) Description 11/11/2025 10:00 AM EDT Office Visit [facility] ADULT DENTAL [address] [place] [address] Ryan, Lauren [address] [place] [address] documented as of this encounter Visit Diagnoses Not on filedocumented in this encounter Care Teams Family Dentist Relationship Specialty Start Date End Date Darvin Ferro MD PCP - General Family Medicine 06/13/19 07/25/22 Judy Mendez FNP [address] [place] [address] PCP - General Family Medicine 07/26/22 02/28/24 Liv New NP [address] [place] [id number] PCP - General Family Medicine 02/29/24 documented as of this encounter
--- OUTSIDE RECORDS SUMMARY | 2025-06-25 11:25 | XMS_ITS | Clinical Summary ---
Author Organization [employer] Address [address] [facility] 7t [place] [address] Care Team Providers Care Cap Coverer Name Role Phone Shaq Liv MARGARETTE Primary Care Provider [phone] Allergies Active Allergy Reactions Criticality Noted Date Comments Penicillins Rash Low Wound Dressing Adhesive 09/12/2016 Medications hydrOXYzine pamoate (Vistaril) 25 MG capsuleIndication s:Nummular dermatitis Take 1 capsule (25 mg) by mouth every 6 (six) hours if needed for itching for up to 10 days. 30 capsule 09/23/19 23 Active Emollient (CeraVe Moisturizing) creamIndications: Intrinsic allergic eczema Apply 340 g topically 2 times daily. 340 g 11 11/05/19 23 Active amitriptyline (Elavil) 25 MG tabletIndications :Chronic nonintractable headache, unspecified headache type Take 1 tablet (25 mg) by mouth at bedtime. 30 tablet 1 06/03/20 24 Active albuterol 108 (90 Base) MCG/ACT inhalerIndication s:Mild intermittent asthma, unspecified whether complicated Inhale 2 puffs every 6 (six) hours if needed for wheezing. 18 g 11 06/24/20 24 Active dextran 70-hypromellose (artificial tears) 0.1-0.3 % ophthalmic solutionIndicatio ns:Dry eyes, bilateral Administer 1 drop into both eyes if needed in the morning, at noon, and at bedtime for dry eyes. 15 mL 3 06/27/20 24 025 Active cyclobenzaprine (Flexeril) 10 MG tablet Take 1 tablet (10 mg) by mouth 3 times daily for 10 days. 30 tablet 07/09/20 24 Active triamcinolone (Kenalog) 0.1 % creamIndications: Chronic pruritus APPLY A THIN LAYER TO THE AFFECTED AREA(S) 2 TIMES DAILY. MIX WITH CERAVE 454 g 3 03/24/20 25 Active buPROPion XL (Wellbutrin XL) 150 MG 24 hr tablet Take 150 mg by mouth in the morning. 04/23/20 25 Active clonazePAM (KlonoPIN) 1 MG tablet Take 1 tablet by mouth 2 times daily. 04/23/20 25 Active divalproex (Depakote) 500 MG EC tablet Take 1 tablet by mouth 2 times daily. 04/23/20 25 Active EPINEPHrine (Epipen) 0.3 MG/0.3ML injection syringe INJECT 0.3 MG (0.3 ML) INTRAMUSCULARLY DIRECTED FOR ANAPHYLAXIS Active famotidine (Pepcid) 40 MG tablet Take 40 mg by mouth at bedtime. 04/02/20 25 Active loratadine (Claritin) 10 MG tablet Take 10 mg by mouth Once per day. Active lurasidone (Latuda) 80 MG tablet TAKE 1 TABLET BY MOUTH EVERY EVENING WITH MEALS FOR MOOD STABILITY 04/23/20 Active montelukast (Singulair) 10 MG tablet Take 10 mg by mouth at bedtime. Active Tezspire 210 MG/1.91ML solution prefilled syringe 04/09/20 25 Active Stiolto Respimat 2.5-2.5 MCG/ACT aerosol solution inhaler INHALE 2 PUFFS INTO THE LUNGS DAILY FOR 30 DAYS 03/21/20 25 Active zolpidem CR (Ambien CR) 12.5 MG ER tablet Take 12.5 mg by mouth at bedtime. 04/23/20 25 Active Active Problems Problem Noted Date Diagnosed Date Dental plaque 05/07/2025 Tipped teeth 05/07/2025 Colon cancer screening 06/30/2024 Dietary counseling 06/30/2024 [...] Encounters Date Type Department Care Team Description 06/24/2025 Patient Outreach [facility] [address] [place] [address]37 Liv New NP Care Coordination (CHW outreach for SDOH PT-1 and food needs-referral completed /) 06/23/2025 Telephone [facility] [address] [place] [address] 30161 Liv New ACCOUNTS PAYABLE TECHNICIAN PT-1 05/30/2025 Patient Outreach [facility] [address] [place] [address] 301[address] Liv New NP Care Coordination (CHW outreach for SDOH PT-1 and food needs-referral completed /) 05/30/2025 Telephone [facility] [address] [place] [address] 28406 Liv New ACCOUNTS PAYABLE TECHNICIAN pt1 05/14/2025 Telephone [facility] AD[facility] D[facility]AL [address] [place] [address] Segovia DDS 05/07/2025 9:00 AM EDT Office Visit [facility]ULT [facility] [address] [place] [address] Ryan Lauren Tipped teeth (Primary Dx); Dental plaque; Supernumerary teeth from Last 3 Months Immunizations Immunization Administration Dates Next Due Influenza injectable quadriv [...] Sign Reading Time Taken Comments Blood Pressure 124/72 05/07/2025 8:58 AM EDT Pulse 81 07/09/2024 3:43 PM EST Temperature 36.7 C (98 F) 07/09/2024 3:43 PM EST Respiratory Rate 16 [...] Description 11/11/2025 10:00 AM EDT Office Visit [facility] ADULT D[facility] [address] [place] [address] Ryan, Lauren [address] [place] [address] Health Maintenance Due Date Last Done Comments CT Colonography 1975 Colonoscopy 1975 Colorectal Cancer Screening 1975 Depression Screening 1975 FIT DNA/Cologuard 1975 FIT 1975 FOBT 1975 HIV Screening 1975 Sigmoidoscopy 1975 Disability Screening 1975 Alcohol/Substance Use Screening 1987 Family Planning (PISQ) 11/24/1990 Hepatitis C Screening 11/24/1993 Hepatitis B Vaccines (1 of 3 - 19+ 3-dose series) 11/24/1994 Pap Smear 11/24/1996 Cervical Cancer Screening 11/24/2005 HPV/Cotest 11/24/2005 Dental Oral Exam 03/18/2009 09/17/2008 Pneumococcal Vaccine: Pediatrics (0 to 5 Years) and At-Risk Patients (6 to 49) Years (2 of 2 - PCV) 08/19/2011 08/19/2010 DTaP/Tdap/Td Vaccines (1 - Tdap) 03/20/2012 03/19/2012 COVID-19 Vaccine (3 - season) 2025 04/06/2021, 03/17/2021 Influenza Vaccine (#1) 2025 2, 06/27/2019, 10/10/2016, Additional history exists SDOH Screening 05/27/2025 05/27/2024 Dental Prophylaxis 11/05/2025 05/07/2025, 1 09/10/2013, 08/23/2013, Additional history exists Zoster Vaccines (1 of 2) 11/24/2025 Tobacco Screening 05/07/2026 05/07/2025 Dental X-Ray: Bitewings 05/08/2026 05/07/20 25, 07/11/2014, 05/06/2010 Mammogram 12/16/2026 12/16/2024, 12/2021, 09/28/2020, Additional history exists Dental X-Ray: Full Mouth 05/08/2028 025, 03/04/2024, 11/09/2012 RSV Patients and Patients Aged 60 years [...] patient's age to complete this topic Meningococcal B Vaccine Aged Out No l onger eligible based on patient's age to complete [...] Procedure Name Priority Date/Time Associated Diagnosis Comments CASE PRESENTATION, DETAILED AND EXTENSIVE TREATMENT PLANNING Routine 05/07/2025 9:00 AM EDT Tipped teeth Dental plaque ORAL HYGIENE INSTRUCTIONS Routine 05/07/2025 9:00 AM EDT Tipped teeth Dental plaque PROPHYLAXIS - ADULT Routine 05/07/2025 9 :00 AM EDT Tipped teeth Dental plaque INTRAORAL - COMPLETE SERIES OF RADIOGRAPHIC IMAGES Routine 05/07/2025 9:00 AM EDT Tipped teeth Dental plaque BI MAMMOGRAM SCREENING TOMOSYNTHESIS BILATERAL Routine 12/16/2024 9:10 AM EDT COMPREHENSIVE ORAL EVALUATION - NEW OR ESTABLISHED PATIENT Routine 09/17/2008 12:00 AM EST from Last 3 Months or Most Recently Relevant to Health Maintenance Results * BI Mammogram Screening Tomosynthesis Bilateral (12/16/2024 9:10 AM EDT) Anatomical Region Laterality Modality Breast Bilateral Mammography 12/16/2024 9:10 AM EDT Narrative 12/24/2024 3:02 PM EDT [facility] [address] [place] [address] Mammography Report Signed Patient: Faye Kerr MR# : [id number] : 1975 Acct:[id number] Age/Sex: 49 / F ADM Date: 12/16/24 Loc: HO.MAMMO Attending Dr: Liv New ACCOUNTS PAYABLE TECHNICIAN Ordering Physician: Liv New NP Results: 1Negati ve Date of Service: 12/16/24 Follow Up: 1 Year From Orig ina Mammogram Procedure(s): MM tomosynthesis screening BI Accession Number(s): [id number] cc: Liv New ACCOUNTS PAYABLE TECHNICIAN EXAMINATION: MM SCREENING DIGITAL BREAST TOMOSYNTHESIS, BILATERAL CLINICAL INFORMATION: Screening. Asymptomatic. COMPARISON: Mammography: Comparison is made with available priors TECHNIQUE: Digital breast mammography with tomosynthesis is performed in both the craniocaudal and mediolateral oblique views along with computer-aided detection (CAD). FINDINGS: The breasts are heterogeneously dense, which may obscure small masses (ACR BI-RADS breast composition Category c). There are no significant masses, abnormal calcifications, or other abnormalities. MM/MM tomosynthesis screening BI IMPRESSION: No mammographic evidence of malignancy. ASSESSMENT: BI-RADS BI-RADS 1 - Negative RECOMMENDATION: Routine annual mammography screening. 1 year F/U This examination should not preclude the clinical evaluation of a suspicious palpable abnormality. This patient's information was entered into a reminder system with a target due date for their next mammogram. Electronically signed by: Shannon Eastman DO 12/24/2024 02:59 PM EDT Dictated By: Shannon Eastman DO Signed By: <Electronically signed by Shannon Eastman DO in OV> 12/24/24 1459 DD/ 0910 TD/TT: 12/16/24919 [employer] Worker: Procedure Note Donotuseinterpreter, Image - 12/24/2024 [facility] [address] [place], [place] [address] Mammography Report Signed Patient: Shea Kerr# : [id number] : 1975Acct:[id number] Age/Sex: 49 / FADM Date: 12/16/24 Loc: HO.MAMMO Attending Dr: Liv New ACCOUNTS PAYABLE TECHNICIAN Ordering Physician: Liv New NPResults: 1Negati ve Date of Service: 12/16/24Follow Up: 1 Year From Orig inal Mammogram Procedure(s): MM tomosynthesis screening BI Accession Number(s): [id number] cc: Liv New ACCOUNTS PAYABLE TECHNICIAN EXAMINATION: MM SCREENING DIGITAL BREAST TOMOSYNTHESIS, BILATERAL CLINICAL INFORMATION: Screening. Asymptomatic. COMPARISON: Mammography: Comparison is made with available priors TECHNIQUE: Digital breast mammography with tomosynthesis is performed in both the craniocaudal and mediolateral oblique views along with computer-aided detection (CAD). FINDINGS: The breasts are heterogeneously dense, which may obscure small masses (ACR BI-RADS breast composition Category c). There are no significant masses, abnormal calcifications, or other abnormalities. MM/MM tomosynthesis screening BI IMPRESSION: No mammographic evidence of malignancy. ASSESSMENT: BI-RADS BI-RADS 1 - Negative RECOMMENDATION: Routine annual mammography screening. 1 year F/U This examination should not preclude the clinical evaluation of a suspicious palpable abnormality. This patient's information was entered into a reminder system with a target due date for their next mammogram. Electronically signed by: Shannon Eastman DO 12/24/2024 02:59 PM EDT Dictated By: Shannon Eastman DO Signed By: <Electronically signed by Shannon Eastman DO in OV> 12/24/24 1459 DD/ 9 TD/TT: 12/16/24919 [employer] Worker: us Liv Graef ACCOUNTS PAYABLE TECHNICIAN IMG BI PROCEDURES Final Result from Last 3 Months or Most Recently Relevant to Health Maintenance Insurance [place] [facility] MEDICAID STAND ADULT Care Teams Cap Coverer Relationship Specialty Start Date End Date Liv New NP [address] [place] [address] PCP - General Family Medicine 02/29/24
--- OUTSIDE RECORDS SUMMARY | 2025-06-25 11:25 | XMS_ITS | Encounter Summary ---
Author Organization [employer] Address 75 [facility] 7t [place] [address] Care Team Providers Care Ranch Supervisor Name Role Phone Liv New NP Primary Care Provider [phone] Reason for Visit * Reason Onset Date Comments PT-1 06/23/2025 Encounter Details Date Type Department Care Team ([facility] st Contact Info) Description 06/23/2025 Telephone [facility] [address] [place], [place] [phone] Liv New NP [address] [place] [address] PT-1 Social History Tobacco Use Types Packs/Day [...] encounter Miscellaneous Notes * Telephone Encounter - Jacob Chen - 06/23/2025 4:09 PM EDT Patient calling requesting PT1 Home Address verified: Y/N: Yes Provider name or facility name: Dr. Miguel Angel Daniels Facility Address: [address] [place] [address] Escort needed: Y/N: Yes Do you have a wheelchair: Y/N: No If yes- Manual or electric: N/A Visits: 3 times a month documented in this encounter Plan of Treatment Upcoming Encounters Date Type Department Care Team (Late st Contact Info) Description 11/11/2025 10:00 AM EDT Office Visit [facility] ADULT D[facility] [address] [place] [address] Ryan, Lauren [address] [place] [address] documented as of this encounter Visit Diagnoses Not on filedocumented in this encounter Care Teams Ranch Supervisor Relationship Specialty Start Date End Date Liv New NP [address] [place] [address] PCP - General Family Medicine 02/29/24 documented as of this encounter
--- OUTSIDE RECORDS SUMMARY | 2025-06-25 11:25 | XMS_ITS | Encounter Summary ---
Author Organization [employer] Address 75 [facility] 7t [place] [address] Care Team Providers Care Health Systems Analyst Name Role Phone Liv New NP Primary Care Provider [phone] Reason for Visit * Reason Comments Care Coordination CHW outreach for SDO H PT-1 and food needs-referral completed Encounter Details Date Type Department Care Team (Latest Contact Info) Description 06/24/2025 Patient Outreach [facility] [address] [place] [address] Liv New NP [address] [place] [address] Care Coordination (CHW outreach for SDOH PT-1 and food needs-referral completed /) Social History Tobacco Use Types Packs/Day Years Used Date Smoking Tobacco: Never Smokeless Tobacco: Never Alcohol Use Standard Drinks/Week Comments Never 0 (1 standard drink = 0.6 oz pur e alcohol) Housing Stability Answer Date Recorded What is your housing situation today? I have giorgio kelly 05/27/[address] you li [...] AM EDT documented as of this encounter Progress Notes * Ilya Doe - 06/24/2025 9:05 AM EDT CHW Ilya Doe, placed outbound call to patient for assistance with SDOH as a referral was received by the provider. Patient's name and were confirmed. Patient screened positive for the following SDOH food insecurities. CHW referral patient to the local list of pantries in the area for help. PT-1 requested was send out in behalf of patient for futures appt. Patient verbalizes understandin g, and able to agree with plan to follow up. Patient educated on extended clinic hours on Mondays through Wednesdays, and Walk-In Urgent Care Located in [facility] of [facility]. Patient provided with after-hours line for [facility], , which offer night time triage service and option to transfer to production posting clerk provider if needed. documented in this encounter Plan of Treatment Upcoming Encounters Date Type Department Care Team (Late st Contact Info) Description 11/11/2025 10:00 AM EDT Office Visit [facility] ADULT DENTAL [address] [place], [place] [phone] Dyllan Davisaris [address] [place] [address] documented as of this encounter Visit Diagnoses Not on filedocumented in this encounter Care Teams Health Systems Analyst Relationship Specialty Start Date End Date Liv New NP [address] [place] [address] PCP - General Family Medicine 02/29/24 documented as of this encounter
--- OUTSIDE RECORDS SUMMARY | 2025-06-25 11:25 | XMS_ITS | Encounter Summary ---
Author Organization [employer] Address 75 [facility] 7 [place] [address] Care Team Providers Care Driver Operator Name Role Phone Judy MendezP Primary Care Provider [phone] Liv New NP Primary Care Provider [phone] Reason for Visit * Reason Onset Date Comments PT1 01/17/2023 Encounter Details Date Type Department Care Team ([facility] st Contact Info) Description 01/17/2023 Telephone [facility] [address] [place] [address] Judy Mendez FNP [address] [place] [address] PT1 Social History Tobacco Use Types Packs/Day [...] denial letter via mail. PT-1 Request Number [id number] is Authorized - [facility] 230 [facility] [address] PT-1 Request Number [id number] is Pending - [facility] [address] [place] [address] [place] [address] * Telephone Encounter - Yolanda Cobian - 01/17/2023 2:11 PM EDT PT1- Location: [address] [place] [address] [place] [address] Phone: Date: 01/26/23 Time: 10:45 am Slp Needed: yes Wheel Chair Access? No PT1- Location: [address] [place] Date: 02/22/23 Time: 10:15 am Slp Needed: yes Wheel Chair Access? No documented in this encounter Plan of Treatment Upcoming Encounters Date Type Department Care Team (Late st Contact Info) Description 11/11/2025 10:00 AM EDT Office Visit [facility] ADULT DENTAL [address] [place] [address] Lauren Davis [address] [place] [address] documented as of this encounter Visit Diagnoses Not on filedocumented in this encounter Care Teams Driver Operator Relationship Specialty Start Date End Date Judy Mendez FNP [address] [place] [address] PCP - General Family Medicine 07/26/22 02/28/24 Liv New NP [address] [place] [address] PCP - General Family Medicine 02/29/24 documented as of this encounter
--- OUTSIDE RECORDS SUMMARY | 2025-06-25 11:25 | XMS_ITS | Encounter Summary ---
Author Organization [employer] Address [address] [place] [address] 7t [place] [address] Care Team Providers Care Reeling Machine Setup Operator Name Role Phone Judy MendezP Primary Care Provider [phone] Liv New NP Primary Care Provider [phone] Reason for Visit * Reason Onset Date Comments TP appt 01/04/2023 Encounter Details Date Type Department Care Team (Late Contact Info) Description 01/04/2023 Telephone [facility] [address] [place] [address] Judy Mendez FNP [address] [place] [address] TP appt Social History Tobacco Use Types [...] appt with provider. Please contact pt at [phone] Tamazight Speaker documented in this encounter Plan of Treatment Upcoming Encounters Date Type Department Care Team (Late Contact Info) Description 11/11/2025 10:00 AM EDT Office Visit [facility] ADULT D[facility] [address] [place] [address] Lauren Davis [address] [place] [address] documented as of this encounter Visit Diagnoses Not on filedocumented in this encounter Care Teams Reeling Machine Setup Operator Relationship Specialty Start Date End Date Judy Mendez FNP [address] [place] [address] PCP - General Family Medicine 07/26/22 02/28/24 Liv New NP [address] [place] [address] PCP - General Family Medicine 02/29/24 documented as of this encounter
--- OUTSIDE RECORDS SUMMARY | 2025-06-25 11:25 | XMS_ITS | Encounter Summary ---
Author Organization [employer] Address 75 [facility] 7t [place] [address] Care Team Providers Care County Home Demonstrator Name Role Phone Judy Mendez Primary Care Provider [phone] Liv New NP Primary Care Provider [phone] Encounter Details Date Type Department Care Team (Late st Contact Info) Description 04/24/2023 Orders Only [facility] [address] [place], [place] [phone] Judy Mendez FNP [address] [place] [address] Fibromyalgia (Primary Dx) Social History Tobacco Use [...] Description 11/11/2025 10:00 AM EDT Office Visit [facility] ADULT DENTAL [address] [place] [address] Lauren Davis [address] [place] [address] documented as of this encounter Visit Diagnoses Diagnosis Fibromyalgia- Primary Unspecified myalgia and myositis documented in this encounter Care Teams County Home Demonstrator Relationship Specialty Start Date End Date Judy Mendez FNP [address] [place] [address] PCP - General Family Medicine 07/26/22 02/28/24 Liv New NP [address] [place] [address] PCP - General Family Medicine 02/29/24 documented as of this encounter
--- OUTSIDE RECORDS SUMMARY | 2025-06-25 11:25 | XMS_ITS | Encounter Summary ---
Author Organization [employer] Address [address] [facility] 7t [place] [address] Care Team Providers Care Bunch Trimmer Mold Name Role Phone JeisonLiv rueda MARGARETTE Primary Care Provider [phone] Reason for Visit * Reason Onset Date Comments no show reschedule 08/21/2024 Encounter Details Date Type Department Care Team ([facility] st Contact Info) Description 08/21/2024 Telephone [facility] D[facility] [address] [place] [address] Simin Banda no show reschedule Social History [...] Miscellaneous Notes * Telephone Encounter - Abida Alex - 08/21/2024 10:03 AM EST Patient called [...] 10:00 AM EDT Office Visit [facility] D[facility] [address] [place] [address] Ryan Lauren [address] [place] [address] documented as of this encounter Visit Diagnoses Not on filedocumented in this encounter Care Teams Bunch Trimmer Mold Relationship Specialty Start Date End Date Liv New NP [address] [place] [address] PCP - General Family Medicine 02/29/24 documented as of this encounter
--- OUTSIDE RECORDS SUMMARY | 2025-06-25 11:25 | XMS_ITS | Encounter Summary ---
Author Organization [email or web address] Address 75 [facility] 7t [place] [address] Care Team Providers Care Nursery Teacher Name Role Phone Liv New NP Primary Care Provider [phone] Reason for Visit * Reason Onset Date Comments pt1 05/30/2025 Encounter Details Date Type Department Care Team ([facility] st Contact Info) Description 05/30/2025 Telephone [facility] [address] [place], [place] [phone] Liv New NP [address] [place] [address] pt1 Social History Tobacco Use Types Packs/Day Years [...] encounter Miscellaneous Notes * Telephone Encounter - Herb Lyeva - 05/30/2025 11:27 AM EDT Patient calling requesting PT1 Home Address verified: Y/N: Yes Provider name or facility name: [address] [place] [address] allergy Escort needed: Y/N: Yes Do you have a wheelchair: Y/N: No Visits: (5x month) documented in this encounter Plan of Treatment Upcoming Encounters Date Type Department Care Team (Late st Contact Info) Description 11/11/2025 10:00 AM EDT Office Visit [facility] ADULT DENTAL [address] [place] [address] Ryan, Lauren [address] [place] [address] documented as of this encounter Visit Diagnoses Not on filedocumented in this encounter Care Teams Nursery Teacher Relationship Specialty Start Date End Date Liv New NP [address] [place] [address] PCP - General Family Medicine 02/29/24 documented as of this encounter
--- OUTSIDE RECORDS SUMMARY | 2025-06-25 11:25 | XMS_ITS | Encounter Summary ---
Author Organization [email or web address] Address [address] [facility] 7t [place] [address] Care Team Providers Care Disc Jockey Name Role Phone Judy Mendez Primary Care Provider [phone] Liv New NP Primary Care Provider [phone] Reason for Visit * Reason Onset Date Comments PT1 03/15/2023 Encounter Details Date Type Department Care Team ([facility] st Contact Info) Description 03/15/2023 Telephone [facility] [address] [place] [address] Judy Mendez FNP [address] [place] [address] PT1 Social History Tobacco Use Types Packs/Day [...] Pt called in again regarding PT1 for [facility] Allergy / [address] [place] [address] insurance keeps denying pt1 because they want to know why she gets seen at [facility] . * Telephone Encounter - Brandon Abad - 04/11/2023 4:16 PM EDT PT1 orginally denied due to location not being placed. New pt1 submitted as of today 04/11 * Telephone Encounter - Madiha Sparks - 03/15/2023 11:37 AM EDT Pt has active PT1 to location requested good through 09/2023 * Telephone Encounter - Paige Steele - 03/15/2023 9:34 AM EDT Tc from pt requesting PT1 Form: Name of facility: [employer] Specialty: Allergy Location: [address] [place] [address] Date: 04/03/2023 Time: 9:30 am fax: n/a Phone: n/a wheelchair: no Detention Attendant: Yes All Future Appt's documented in this encounter Plan of Treatment Upcoming Encounters Date Type Department Care Team (Late st Contact Info) Description 11/11/2025 10:00 AM EDT Office Visit [facility] ADULT DENTAL [address] [place] [address] Ryan, Lauren [address] [place] [address] documented as of this encounter Visit Diagnoses Not on filedocumented in this encounter Care Teams Disc Jockey Relationship Specialty Start Date End Date Judy Mendez FNP [address] [place] [address] PCP - General Family Medicine 07/26/22 02/28/24 Liv New NP [address] [place] [address] PCP - General Family Medicine 02/29/24 documented as of this encounter
== END 2025-06-25 10:17 | disposition home or self-care (01) ==
LOC: HO.HPS 09:44
PROVIDERS: Visit Provider Hospitalist
DX: J45.40 Moderate persistent asthma, uncomplicated (principal); J30.9 Allergic rhinitis, unspecified; J32.9 Chronic sinusitis, unspecified; R05.3 Chronic cough
CPT/HCPCS: 99214

== ENCOUNTER → 2025-06-25 09:43 | Outpatient (BNVA) | payer MEDICAID, SELFPAY | PROVIDERS: Visit Provider Hospitalist | DX: J45.40 Moderate persistent asthma, uncomplicated (principal); J30.9 Allergic rhinitis, unspecified; J32.9 Chronic sinusitis, unspecified; R05.3 Chronic cough | CPT/HCPCS: 99212 ==

== ENCOUNTER 2025-07-03 11:41 | Emergency (ER) | payer MEDICAID, SELFPAY ==
[2025-07-03 12:26] VITALS: BP 125/56; PULSE 79; RESP 16; O2SAT 98; BMI 29.2
--- NOTE | 2025-07-03 12:31 | ED_ITS ---
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 Patient reports a dull, global headache since yesterday. She describes it as a migraine but did not have any aura. She reports vomiting yesterday. Her symptoms have improved with Tylenol. She reports a mild, 3/10 headache Denies any trauma to the head or neck She is not anticoagulated She denies any viral symptoms including fevers, chills, cough, sore throat, congestion No other complaints or concerns at this time Related Data Home Medications ?Medication ?Instructions ?Recorded ?Confirmed clonazepam 1 mg tablet 1 mg PO DAILY 06/04/2001/23 hydroxyzine pamoate 25 mg capsule 25 mg PO Q6H PRN itc h 01/23/23 01/23/23 triamcinolone acetonide 0.1 % appl topical BID 3 01/23/23 topical cream nebulizers 02/27/23 bupropion HCl 150 mg 24 hr tablet, 150 mg PO QAM 09/12 extended release bupropion HCl 300 mg 24 hr tablet, 300 mg PO QAM 09/12 extended release diphenhydramine HCl 25 mg capsule 25 mg PO DAILY PRN a llergies 09/12/23 (Banophen) divalproex 500 mg tablet,delayed 500 mg PO BID 4 release lurasidone 80 mg tablet 80 mg PO QPM depressive diso rder 09/12/23 tezepelumab-ekko 210 mg/1.91 mL mg subcut 09/12/23 (110 mg/mL) subcutaneous syringe (Tezspire) zolpidem 12.5 mg tablet,extended 12.5 mg PO BEDTIME release,multiphase Previous Rx's ?Medication ?Instructions ?Recorded cock up splint #2 ea 01/23/23 albuterol sulfate 90 mcg/actuation 2 puff PO Q6H PRN f or dyspnea 30 02/27/23 aerosol inhaler (Ventolin HFA) days #1 ea ipratropium bromide 42 mcg (0.06 2 spray intranasal TI D PRN for 02/27/23 %) nasal spray allergies #15 mL azelastine 137 mcg (0.1 %) nasal 2 spray intranasal BI D #30 mL 05/26/23 spray ondansetron 4 mg disintegrating 4 mg PO Q8H PRN nausea and 07/05/24 tablet vomiting #20 tabs beclomethasone dipropionate 80 2 inh PO BID #10.6 gram s 08/06/24 mcg/actuation HFA breath activated aerosol (Qvar RediHaler) epinephrine 0.3 mg/0.3 mL 0.3 mg (0.3 mL) IM DIRECT ED for 08/16/24 injection, auto-injector anaphylaxis #2 ea famotidine 40 mg tablet 40 mg PO BEDTIME #90 tabs omeprazole 20 mg capsule,delayed 20 mg PO DAILY 90 day s #90 caps 08/16/24 release tiotropium 2.5 mcg-olodaterol 2.5 2 puff inhalation DA KENDALL 30 days #4 08/16/24 mcg/actuation mist for inhalation mL (Stiolto Respimat) loratadine 10 mg tablet 10 mg PO DAILY #90 tabs 06/04 12/27 albuterol sulfate 2.5 mg/3 mL 2.5 mg (3 mL) PO Q4H PRN for 06/25/25 (0.083 %) solution for nebulization wheezing #150 mL azithromycin 500 mg tablet 500 mg PO DAILY 5 days #5 t abs 06/25/25 benzonatate 200 mg capsule 200 mg PO BID PRN cough 30 days 06/25/25 #60 caps codeine 10 mg-guaifenesin 100 mg/5 10 ml PO Q6H PRN co ugh 10 days 06/25/25 mL oral liquid #300 mL methylprednisolone 4 mg tablets in See Rx Instructions PO PER PKG DIR 06/25/25 a dose pack (Medrol (Miki)) 6 days #21 ea montelukast 10 mg tablet 10 mg PO BEDTIME #30 tabs dtuibsmkxr-ttxsskmggsxrv-netrxeit 1 cap PO Q4-6H PRN p ain #12 caps 07/03/25 50 mg-300 mg-40 mg capsule (Fioricet) ondansetron 4 mg disintegrating 4 mg PO Q8H PRN nausea and 07/03/25 tablet vomiting #20 tabs Allergies Allergy/AdvReac Type Severity Reaction Status Date / Time Penicillins Allergy Severe Shortness Verified 07/03/25 12:26 of Breath Review of Systems 2 Constitutional: Constitutional: Denies body ache(s), Denies chills, Denies fever(s), Denies frequent falls and Reports headache(s) Eyes: Eyes: Denies blind spots and Denies blurry vision ENT: Denies vertigo, Denies dizziness and Reports headache(s) Cardiovascular: Cardiovascular: Denies dyspnea on exertion Respiratory: Respiratory: Denies cough and Denies dyspnea on exertion Gastrointestinal: Gastrointestinal: Denies abdominal pain, Reports nausea and Reports vomiting Musculoskeletal: Musculoskeletal: Denies back pain Neurologic: Denies vertigo, Denies dizziness, Denies frequent falls and Reports headache(s) Psychiatric: Psychiatric: Denies anxiety PMFSH Past Medical History Medical History Cough Fibromyalgia Sinusitis Asthma Chronic allergic rhinitis Surgical History History of 2 sections History of partial hysterectomy Family History Family History Father Gout Cancer Arthritis of knee HTN (hypertension) Mother Rheumatoid arthritis Thyroid disease COPD (chronic obstructive pulmonary disease) Diabetes HTN (hypertension) Social History Social History Alcohol intake: never Patient Tobacco Use Status: Never used Tobacco Advance Directives: No Advance Directives Information Provided: Yes Current occupational status: disabled 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 Physical Exam ED Vital Signs: Vital Signs - 24 hr 07/03/25 12:26 07/03/25 18:37 07/03/25 19:34 Temperature 97.9 F 98.1 F Pulse Rate 79 72 68 Respiratory Rate 16 18 15 Blood Pressure 125/56 L 135/76 130/69 Pulse Oximetry 98 96 100 Oxygen Delivery Method Room Air Room Air Room Air BMI result Body Mass Index 29.2 Const General: healthy appearing, comfortable, no acute distress, alert and awake Nutritional Appearance: well nourished Orientation/consciousness: patient oriented x3 HENMT Head: Yes normocephalic and Yes atraumatic Eyes Eyelids: Yes eyelids normal Conjunctivae: conjunctivae normal Sclerae: sclerae normal Corneas: corneas normal Pupils: Equal, round and reactive pupils present EOM: EOMs intact bilaterally Neck Neck: Yes full ROM Resp Effort & Inspection: normal respiratory effort, able to speak in complete sentences and not labored Skin General skin exam: no rashes or lesions noted Neuro General: patient oriented x3 Cranial nerves: Yes CN's II-XII intact bilaterally, Yes Equal, round and reactive pupils present and Yes Bilaterally intact EOM present Cognition (Neuro): normal cognition Extrem Other: Moving all extremities well without any obvious deformities Course Course Course Narrative: RME: 49-year-old female presents to ED for migraine exacerbation. Patient states history of migraine. Patient states having headache since yesterday with no relief. Medications Administered Discontinued Medications Generic Name Dose Route Start Last Admin Trade Name Freq PRN Reason Stop Dose Admin Acetaminophen 975 mg 07/03/25 18:39 07/03/25 18:41 Acetaminophen 325 Mg Tablet PO 07/03/25 18:40 975 mg ONCE ONE Administration Ondansetron HCl 4 mg 07/03/25 18:39 07/03/25 18:41 Ondansetron Odt 4 Mg Tab.Rapdis TRANSLINGU 07/03/25 18:40 4 mg ONCE ONE Administration Medical Decision Making Medical Decision Making [facility] Narrative: 49-year-old female presents for evaluation of a headache. She describes has a migraine but did not have any aura. She has an NIH stroke score of 0. She is quite well appearing. At the time of my evaluation she has been in the ER for over 8 hours. She reports her headache is almost completely resolved. She has no neuro deficits, there was no trauma, there was no indication for emergent imaging at this time. Her labs are reviewed and reassuring. No evidence of infectious process. Given that she is improved with stable vitals, she will be discharged with conservative management. Differential Diagnosis Differential Diagnoses: The differential diagnosis associated with the presentation includes Acute headache Migraine headache Sinusitis Tension headache Cluster headache Lab Data [facility] Lab Attestation statement: I reviewed the patient's lab results. No leukocytosis or anemia. Normal platelet count. No electrolyte abnormalities warranting dimension. 07/03/25 12:54 07/03/25 12:54 Labs: Lab Results 07/03/25 Range/Units 12:54 WBC 8.2 (4.8-10.8) X10*3/uL RBC 4.33 (4.20-5.50) X10*6/uL Hgb 12.6 (12.0-16.0) g/dl Hct 39.3 (37.0-47.0) % MCV 90.8 (80.0-98.0) fL MCH 29.1 (27.0-33.0) pg MCHC 32.1 (31.0-35.0) g/dl RDW 11.9 (11.0-16.0) % Plt Count 229 (160-400) X10*3/uL MPV 9.5 (9.4-12.3) fL Immature Gran % (Auto) 0.1 (0.0-0.4) % Neut % (Auto) 78.7 H (45-73) % Lymph % (Auto) 16.4 L (20-40) % [place] % (Auto) 3.8 (2-11) % Eos % (Auto) 0.5 (0-4) % Baso % (Auto) 0.5 (0-2) % Lymph # (Auto) 1.3 (1.2-4.9) X10*3/uL [place] # (Auto) 0.3 (0.1-1.2) X10*3/uL Eos # (Auto) 0.0 (0.0-0.4) X10*3/uL Baso # (Auto) 0.0 (0.0-0.2) X10*3/uL Abs Immat Gran (auto) 0.01 (0.00-0.03) X10*3/uL Absolute Neuts (auto) 6.5 (2.0-8.3) x10*3/uL Absolute Nucleated RBC 0.000 (0.0-0.012) X10*3/uL Nucleated RBC % (auto) 0.0 (0.0-0.2) /100WBC Sodium 141 (135-145) mmol/L Potassium 4.4 (3.3-5.1) mmol/L Chloride 108 (96-108) mmol/L Carbon Dioxide 30 H (22-29) mmol/L Anion Gap 7 L (12-20) BUN 14 (9-16) mg/dL Creatinine 0.78 (0.5-1.4) mg/dL Estim Creat Clear Calc 87.6 Estimated GFR > 60 Random Glucose 94 (60-115) mg/dL Calcium 9.2 (8.4-10.2) mg/dL Total Bilirubin 1.0 (0.0-1.0) mg/dL AST 22 (5-31) U/L ALT 13 (0-31) U/L Alkaline Phosphatase 73 (39-117) U/L Total Protein 6.9 (6.5-8.0) g/dL Albumin 4.2 (3.5-5.0) g/dL Tests considered The following testing was considered but not selected: Consider CT scan of the brain, however the patient has a history of migraines and there was no trauma, no neuro deficits Discharge Plan Discharge Clinical Impression: Headache Patient Disposition: Home, Self-Care Instructions: Acute Headache (ED) Additional Instructions: Your workup in the ER today was reassuring. You may use Fioricet as needed for recurrence of your headache pain Take Zofran as needed for nausea and vomiting. You should not take additional acetaminophen/Tylenol with a Fioricet as there is Tylenol in his medication Follow up with your primary doctor, return for new or worsening symptoms Prescriptions: New mvfaiwbmqz-zeacyjbgqolky-lxap [Fioricet] 50-300-40 mg capsule 1 cap PO Q4-6H PRN (Reason: pain) Qty: 12 0RF ondansetron 4 mg tablet,disintegrating 4 mg PO Q8H PRN (Reason: nausea and vomiting) Qty: 20 0RF No Action azelastine 137 mcg (0.1 %) aerosol,spray 2 spray intranasal BID Qty: 30 11RF Qvar RediHaler 80 mcg/actuation HFA aerosol breath activated 2 inh PO BID Qty: 10.6 11RF loratadine 10 mg tablet 10 mg PO DAILY Qty: 90 1RF ondansetron 4 mg tablet,disintegrating 4 mg PO Q8H PRN (Reason: nausea and vomiting) Qty: 20 0RF clonazepam 1 mg tablet 1 mg PO DAILY triamcinolone acetonide 0.1 % cream topical BID hydroxyzine pamoate 25 mg capsule 25 mg PO Q6H PRN (Reason: itch) (DME) cock up splint See Rx Instructions .Route .MEDSUPPLY Qty: 2 0RF Rx Instructions: wear at night Tezspire 210 mg/1.91 mL (110 mg/mL) syringe subcut zolpidem 12.5 mg tablet,ext release multiphase 12.5 mg PO BEDTIME lurasidone 80 mg tablet 80 mg PO QPM bupropion HCl 300 mg tablet extended release 24 hr 300 mg PO QAM bupropion HCl 150 mg tablet extended release 24 hr 150 mg PO QAM diphenhydramine HCl [Banophen] 25 mg capsule 25 mg PO DAILY PRN (Reason: allergies) divalproex 500 mg tablet,delayed release (DR/EC) 500 mg PO BID (DME) nebulizers Misc See Rx Instructions .Route Rx Instructions: As directed albuterol sulfate [Ventolin HFA] 90 mcg/actuation HFA aerosol inhaler 2 puff PO Q6H PRN (Reason: for dyspnea) 30 Days Qty: 1 11RF ipratropium bromide 42 mcg (0.06 %) spray,non-aerosol 2 spray intranasal TID PRN (Reason: for allergies) Qty: 15 6RF Stiolto Respimat 2.5-2.5 mcg/actuation mist 2 puff inhalation DAILY 30 Days Qty: 4 11RF epinephrine 0.3 mg/0.3 mL auto-injector 0.3 mg IM DIRECTED Qty: 2 11RF omeprazole 20 mg capsule,delayed release(DR/EC) 20 mg PO DAILY 90 Days Qty: 90 3RF famotidine 40 mg tablet 40 mg PO BEDTIME Qty: 90 3RF benzonatate 200 mg capsule 200 mg PO BID PRN (Reason: cough) 30 Days Qty: 60 3RF codeine-guaifenesin 10-100 mg/5 mL liquid 10 ml PO Q6H PRN (Reason: cough) 10 Days Qty: 300 0RF azithromycin 500 mg tablet 500 mg PO DAILY 5 Days Qty: 5 0RF methylprednisolone [Medrol (Miki)] 4 mg tablets,dose pack See Rx Instructions PO PER PKG DIR 6 Days Qty: 21 0RF Rx Instructions: PO PER PKG DIR albuterol sulfate 2.5 mg /3 mL (0.083 %) solution for nebulization 2.5 mg PO Q4H PRN (Reason: for wheezing) Qty: 150 11RF montelukast 10 mg tablet 10 mg PO BEDTIME Qty: 30 11RF Interventions: ED Discharge Assessment Last Done: 07/03/25 20:48 Discharge Date/Time: 07/03/25 20:48 Print Language: Nicaraguan
[2025-07-03 12:58] LABS: MANUAL DIFF FLAG NO
[2025-07-03 13:01] LABS: Hematocrit 39.3 % (37.0-47.0); Hemoglobin 12.6 g/dl (12.0-16.0); Imm Gran Abs Auto 0.01 X10*3/uL (0.00-0.03); Imm Gran Pct Auto 0.1 % (0.0-0.4); Lymphocytes Absolute Auto 1.3 X10*3/uL (1.2-4.9); Mean Corpuscular HGB Conc 32.1 g/dl (31.0-35.0); Mean Corpuscular Hemoglobin 29.1 pg (27.0-33.0); Mean Corpuscular Volume 90.8 fL (80.0-98.0); NRBC Abs Auto 0.000 X10*3/uL (0.0-0.012); NRBC Pct Auto 0.0 /100WBC (0.0-0.2); Platelet Count 229 X10*3/uL (160-400); Red Blood Count 4.33 X10*6/uL (4.20-5.50); White Blood Count 8.2 X10*3/uL (4.8-10.8)
[2025-07-03 13:14] LABS: Alanine Aminotransferase 13 U/L (0-31); Albumin Level 4.2 g/dL (3.5-5.0); Alkaline Phosphatase 73 U/L (39-117); Anion Gap 7 (12-20); Aspartate Amino Transferase 22 U/L (5-31); Blood Urea Nitrogen 14 mg/dL (9-16); Calcium 9.2 mg/dL (8.4-10.2); Carbon Dioxide 30 mmol/L (22-29); Chloride 108 mmol/L (96-108); Creatinine Clr Calc Pharmacy 87.6; Estimated Glomerular Filt Rate > 60; Potassium 4.4 mmol/L (3.3-5.1); Sodium 141 mmol/L (135-145); Total Protein 6.9 g/dL (6.5-8.0)
[2025-07-03 18:37] VITALS: BP 135/76; PULSE 72; RESP 18; TEMP 36.6; O2SAT 96
[2025-07-03 19:34] VITALS: BP 130/69; PULSE 68; RESP 15; TEMP 36.7; O2SAT 100
--- OUTSIDE RECORDS SUMMARY | 2025-07-03 19:52 | XMS_ITS | Encounter Summary ---
Author Organization [employer] Address [address] [place] [address] Care Team Providers Care Cook Ship Name Role Phone Liv New NP Primary Care Provider [phone] Reason for Visit * Reason Onset Date Comments PT-1 05/30/2024 Encounter Details Date Type Department Care Team ([facility] st Contact Info) Description 05/30/2024 Telephone [facility] MED[facility] [address], [place] [phone] Liv New NP [address] [place] [address] PT-1 Social History Tobacco Use Types Packs/Day [...] Y/N: Yes Provider name or facility name: [facility] Address: [address] [place] [address] Escort needed: Y/N: Yes Do you have a wheelchair: Y/N: No If yes- Manual or electric: no Visits: 4 to five times a month Patient calling requesting PT1 Home Address verified: Y/N: Yes Provider name or facility name: [facility] Facility Address: [address] [place], [place] Escort needed: Y/N: Yes Do you have a wheelchair: Y/N: No If yes- Manual or electric: no Visits: 6 documented in this encounter Plan of Treatment Upcoming Encounters Date Type Department Care Team ([facility] Contact Info) Description 11/11/2025 10:00 AM EDT Office Visit [facility] D[facility]AL [address] [place] [address] Ryan, Lauren [address] [place] [address] documented as of this encounter Visit Diagnoses Not on filedocumented in this encounter Care Teams Cook Ship Relationship Specialty Start Date End Date Liv New NP [address] [place] [address] PCP - General Family Medicine 02/29/24 documented as of this encounter
--- OUTSIDE RECORDS SUMMARY | 2025-07-03 19:52 | XMS_ITS | Encounter Summary ---
Author Organization [employer] Address [address] [place] [address] Care Team Providers Care Circuit Manager Name Role Phone Judy Mendez Primary Care Provider [phone] Liv New NP Primary Care Provider [phone] Encounter Details Date Type Department Care Team (Late st Contact Info) Description 04/24/2023 Orders Only [facility] [address] [place], [place] [phone] Judy Mendez FNP [address] [place] [address] Fibromyalgia (Primary Dx) Social History Tobacco Use [...] Description 11/11/2025 10:00 AM EDT Office Visit [facility] [address] [place] [address] Lauren Davis [address] [place] [address] documented as of this encounter Visit Diagnoses Diagnosis Fibromyalgia- Primary Unspecified myalgia and myositis documented in this encounter Care Teams Circuit Manager Relationship Specialty Start Date End Date Judy Mendez FNP [address] [place] [address] PCP - General Family Medicine 07/26/22 02/28/24 Liv New NP [address] [place] [address] PCP - General Family Medicine 02/29/24 documented as of this encounter
--- OUTSIDE RECORDS SUMMARY | 2025-07-03 19:52 | XMS_ITS | Clinical Summary ---
Author Organization [employer] Address [address] [facility] 7t [place] [address] Care Team Providers Care Dx Board Operator Name Role Phone Shaq Liv MARGARETTE Primary Care Provider [phone] Allergies Active Allergy Reactions Criticality Noted Date [...] wheezing. 18 g 11 06/24/20 24 Active cyclobenzaprine (Flexeril) 10 MG tablet Take [...] tablet by mouth 2 times daily. 04/23/20 Active divalproex (Depakote) 500 MG EC tablet Take 1 tablet by mouth 2 times daily. 04/23/20 Active EPINEPHrine (Epipen) 0.3 MG/0.3ML injection syringe INJECT 0.3 MG (0.3 ML) INTRAMUSCULARLY DIRECTED FOR ANAPHYLAXIS Active famotidine (Pepcid) 40 MG tablet Take 40 mg by mouth at bedtime. 04/02/20 Active loratadine (Claritin) 10 MG tablet Take 10 mg by mouth Once per day. Active lurasidone (Latuda) 80 MG tablet TAKE 1 TABLET BY MOUTH EVERY EVENING WITH MEALS FOR MOOD STABILITY 04/23/20 Active montelukast (Singulair) 10 MG tablet Take 10 mg by mouth at bedtime. Active Tezspire 210 MG/1.91ML solution prefilled syringe 04/09/20 Active Stiolto Respimat 2.5-2.5 MCG/ACT aerosol solution inhaler INHALE 2 PUFFS INTO THE LUNGS DAILY FOR 30 DAYS 03/21/20 Active zolpidem CR (Ambien CR) 12.5 MG ER tablet Take 12.5 mg by mouth at bedtime. 04/23/20 Active dextran 70-hypromellose (artificial tears) 0.1-0.3 % ophthalmic solutionIndicatio ns:Dry eyes, bilateral Administer 1 drop into both eyes if needed in the morning, at noon, and at bedtime for dry eyes. 15 mL 3 06/27/20 24 2024 Active Problems Problem Noted Date Diagnosed Date [...] Encounters Date Type Department Care Team Description 07/03/2025 Orders Only GENERIC EXTERNAL DATA DEPARTMENT Provider, Generic External Data 06/24/2025 Patient Outreach [facility] MEDICINE [address] [place] [address] [phone] Liv New NP Care Coordination (CHW outreach for SDOH PT-1 and food needs-referral completed /) 06/23/2025 Telephone [facility] MEDICINE [address] [place] [address] [phone] Liv New NP PT-1 05/30/2025 Patient Outreach [facility] MEDICINE [address] [place] [address] [phone] Liv New NP Care Coordination (CHW outreach for SDOH PT-1 and food needs-referral completed /) 05/30/2025 Telephone [facility] MEDICINE [address] [place] [address] [phone] Liv New NP pt1 05/14/2025 Telephone [facility] ADULT DENTAL [address] [place] [phone] Segovia DDS 05/07/2025 9:00 AM EDT Office Visit [facility] ADULT DENTAL [address] [place] [phone] RyanLauren Tipped teeth (Primary Dx); Dental plaque; Supernumerary [...] Description 11/11/2025 10:00 AM EDT Office Visit [facility] ADULT DENTAL [address] [place] [address] Ryan, Lauren [address] [place] [address] Health Maintenance Due Date Last Done Comments [...] Screening 05/07/2026 05/07/2025 Dental X-Ray: Bitewings 05/08/2026 05/07/20, 07/11/2014, 05/06/2010 Mammogram 12/16/2026 12/16/2024, 03/0 12/2021, 09/28/2020, Additional history exists Dental X-Ray: [...] Procedure Name Priority Date/Time Associated Diagnosis Comments COMPREHENSIVE METABOLIC PANEL Routine 07/03/2025 12:54 PM EDT CBC WITH AUTO DIFFERENTIAL Routine 07/03/2025 12:54 PM EDT CASE PRESENTATION, DETAILED AND EXTENSIVE TREATMENT PLANNING [...] Recently Relevant to Health Maintenance Results * (ABNORMAL) CBC auto differential (07/03/2025 12:54 PM EDT) White Blood Count 8.2 4.8 - 10.8 X10*3/uL [facility] Red Blood Count 4.33 4.20 - 5.50 X10*6/uL [facility] Hemoglobin 12.6 12.0 - 16.0 g/dl [facility] Hematocrit 39.3 37.0 - 47.0 % [facility] Mean Corpuscular Volume 90.8 80.0 - 98.0 fL [facility] Mean Corpuscular Hemoglobin 29.1 27.0 - 33.0 pg [facility] Mean Corpuscular HGB Conc 32.1 31.0 - 35.0 g/dl [facility] Red Cell Distribution Width 11.9 11.0 - 16.0 % [facility] Platelet Count 229 160 - 400 X10*3/uL [facility] Mean Platelet Volume 9.5 9.4 - 12.3 fL [facility] Neutrophils Percent Auto 78.7(H) 45 - 73 % [facility] Imm Gran Pct Auto 0.1 0.0 - 0.4 % [facility] Lymphocytes Percent Auto 16.4(L) 20 - 40 % [facility] Monocytes Percent Auto 3.8 2 - 11 % [facility] Eosinophils Percent Auto 0.5 0 - 4 % [facility] Basophils Percent Auto 0.5 0 - 2 % [facility] NRBC Pct Auto 0.0 0.0 - 0.2 /100WBC [facility] Neutrophils Absolute Auto 6.5 2.0 - 8.3 x10*3/uL [facility] Imm Gran Abs Auto 0.01 0.00 - 0.03 X10*3/uL [facility] Lymphocytes Absolute Auto 1.3 1.2 - 4.9 X10*3/uL [facility] Monocytes Absolute Auto 0.3 0.1 - 1.2 X10*3/uL [facility] Eosinophils Absolute Auto 0.0 0.0 - 0.4 X10*3/uL [facility] Basophils Absolute Auto 0.0 0.0 - 0.2 X10*3/uL [facility] NRBC Abs Auto 0.000 0.0 - 0.012 X10*3/uL [facility] 07/03/2025 12:5 4 PM EDT 07/03/2025 12:57 PM EDT us Generic External Data Provider LAB BLOOD ORDERAB LES Final Result [facility] [address] [place] [address] [phone] * (ABNORMAL) Comprehensive Metabolic Panel (07/03/2025 12:54 PM EDT) Sodium 141 135 - 145 mmol/L [facility] Potassium 4.4 3.3 - 5.1 mmol/L [facility] Chloride 108 96 - 108 mmol/L [facility] Carbon Dioxide 30(H) 22 - 29 mmol/L [facility] Anion Gap 7(L) 12 - 20 [facility] Urea Nitrogen (BUN) 14 9 - 16 mg/dL [facility] Creatinine, Serum 0.78 0.5 - 1.4 mg/dL [facility] Creatinine Clr Calc Pharmacy 87.6 [facility] Comment:Provided height and weight: 162.56 cm,77.111 kg.eGFR (calculated from the MDRD study equation) and eCrCl(calculated from the Cockcroft-Gault equation) are based ondifferent parameters and may not yield comparable results.If eCrCl result is absurd, please check patient'sheight/weight. Estimated Glomerular Filt Rate >60 [facility] Comment:Chronic Kidney Disea se: Estimated GFR < 60 mL/min/1.62s7Ospoet Kidney Disease: Estimated GFR < 15 mL/min/1.73m2 Glucose 94 60 - 115 mg/dL [facility] Calcium 9.2 8.4 - 10.2 mg/dL [facility] Bilirubin, Total 1.0 0.0 - 1.0 mg/dL [facility] Aspartate Amino Transferase 22 5 - 31 U/L [facility] Alanine Aminotransferase 13 0 - 31 U/L [facility] Total Protein 6.9 6.5 - 8.0 g/dL [facility] Albumin Level 4.2 3.5 - 5.0 g/dL [facility] Alkaline Phosphatase 73 39 - 117 U/L [facility] 07/03/2025 12:5 4 PM EDT 07/03/2025 12:57 PM EDT us Generic External Data Provider LAB BLOOD ORDERAB LES Final Result Performing Organization Address City/State/[facility] Co de Phone Number [facility] [address] [place] [phone] * BI Mammogram Screening Tomosynthesis Bilateral (12/16/2024 9:10 AM EDT) Anatomical Region Laterality Modality Breast Bilateral Mammography 12/16/2024 9:10 AM EDT Narrative 12/24/2024 3:02 PM EDT [facility] [address] [place] [address] Mammography Report Signed Patient: Faye Kerr MR# : [id number] : 1975 Acct:[id number] Age/Sex: 49 / F ADM Date: 12/16/24 Loc: [place] Attending Dr: Liv New JAVA SYSTEMS ANALYST Ordering Physician: Liv New NP Results: 1Negati ve Date of Service: 12/16/24 Follow Up: 1 Year From Orig inal Mammogram Procedure(s): MM tomosynthesis screening BI Accession Number(s): [id number] cc: Liv New JAVA SYSTEMS ANALYST EXAMINATION: MM SCREENING DIGITAL BREAST TOMOSYNTHESIS, BILATERAL [...] in OV> 12/24/24 1459 DD/ 0910 TD/TT: 12/16/24 0920 Supervisor Printing [employer]: Procedure Note Donotuseinterpreter, Image - 12/24/2024 [facility] [address] [place] [address] Mammography Report Signed Patient: Kathy KerrLeilaRashard# : [id number] : 1975Acct:[id number] Age/Sex: 49 / FADM Date: 12/16/24 Loc: [facility].MAMMO Attending Dr: Liv New JAVA SYSTEMS ANALYST Ordering Physician: Liv New NPResults: 1Negati ve Date of Service: 12/16/24Follow Up: 1 Year From Orig inal Mammogram Procedure(s): MM tomosynthesis screening BI Accession Number(s): [id number] cc: Liv New JAVA SYSTEMS ANALYST EXAMINATION: MM SCREENING DIGITAL BREAST TOMOSYNTHESIS, BILATERAL [...] Shannon Eastman DO 12/24/2024 02:59 PM EDT RP Dictated By: Shannon Eastman DO Signed By: <Electronically signed by Shannon Eastman DO in OV> 12/24/24 1459 DD/ 0910 TD/TT: 12/16/24 0920 Supervisor [employer]ing [employer]: Liv New NP IMG BI PROCEDURES Final Result from Last 3 Months or Most Recently Relevant to Health Maintenance [place] [address] [place] [address] [employer] [place] AD[place] Care Teams Dx Board Operator Relationship Specialty Start Date End Date Liv New NP [address] [place] [phone] PCP - General Family Medicine 02/29/24
--- OUTSIDE RECORDS SUMMARY | 2025-07-03 19:52 | XMS_ITS | Encounter Summary ---
Author Organization [employer] Address [address] [facility] 7t [place] [address] Care Team Providers Care Business Change Manager Name Role Phone Liv New NP Primary Care Provider [phone] Reason for Visit * Reason Onset Date Comments pt1 05/30/2025 Encounter Details Date Type Department Care Team ([facility] st Contact Info) Description 05/30/2025 Telephone [facility] MEDICINE [address] [place], [place] [phone] Liv New NP [address] [place] [address] pt1 Social History Tobacco Use Types Packs/Day [...] Miscellaneous Notes * Telephone Encounter - Herb Leyva - 05/30/2025 11:27 AM EDT Patient calling requesting PT1 Home Address verified: Y/N: Yes Provider name or facility name: [address] [place] [address] allergy Escort needed: Y/N: Yes Do you have a wheelchair: Y/N: No Visits: (5x month) documented in this encounter Plan of Treatment Upcoming Encounters Date Type Department Care Team (Late st Contact Info) Description 11/11/2025 10:00 AM EDT Office Visit [facility] ADULT DENTAL [address] [place] [address] Ryan, Lauren [address] [place] [address] documented as of this encounter Visit Diagnoses Not on filedocumented in this encounter Care Teams Business Change Manager Relationship Specialty Start Date End Date Liv New NP [address] [place] [address] PCP - General Family Medicine 02/29/24 documented as of this encounter
--- OUTSIDE RECORDS SUMMARY | 2025-07-03 19:52 | XMS_ITS | Encounter Summary ---
Author Organization [employer] Address [address] [place] [address] 7t [place] [address] Care Team Providers Care Accounting Representative Name Role Phone Judy MendezP Primary Care Provider [phone] Liv New NP Primary Care Provider [phone] Reason for Visit * Reason Onset Date Comments TP appt 01/04/2023 Encounter Details Date Type Department Care Team (Late Contact Info) Description 01/04/2023 Telephone [facility] MEDICINE [address] [place] [address] Judy Mendez FNP [address] [place] [address] TP appt Social History Tobacco Use Types [...] appt with provider. Please contact pt at [phone] Latvian Speaker documented in this encounter Plan of Treatment Upcoming Encounters Date Type Department Care Team (Late Contact Info) Description 11/11/2025 10:00 AM EDT Office Visit [facility] ADULT DENTAL [address] [place] [address] Lauren Davis [address] [place] [address] documented as of this encounter Visit Diagnoses Not on filedocumented in this encounter Care Teams Accounting Representative Relationship Specialty Start Date End Date Judy Mendez FNP [address] [place] [address] PCP - General Family Medicine 07/26/22 02/28/24 Liv New NP [address] [place] [address] PCP - General Family Medicine 02/29/24 documented as of this encounter
--- OUTSIDE RECORDS SUMMARY | 2025-07-03 19:52 | XMS_ITS | Encounter Summary ---
Author Organization [employer] Address [address] [facility] 7t [place] [address] Care Team Providers Care Computer Lab Assistant Name Role Phone Liv New NP Primary Care Provider [phone] Reason for Visit * Reason Onset Date Comments PT-1 06/23/2025 Encounter Details Date Type Department Care Team ([facility] st Contact Info) Description 06/23/2025 Telephone [facility] MEDICINE [address] [place], [place] [phone] Liv New NP [address] [place] [address] PT-1 Social History Tobacco Use Types Packs/Day [...] name: Dr. Miguel Angel Daniels Facility Address: [address] [place] [address] Escort needed: Y/N: Yes Do you have a wheelchair: Y/N: No If yes- Manual or electric: N/A Visits: 3 times a month documented in this encounter Plan of Treatment Upcoming Encounters Date Type Department Care Team (Late st Contact Info) Description 11/11/2025 10:00 AM EDT Office Visit [facility] ADULT DENTAL [address] [place] [address] Ryan, Lauren [address] [place] [address] documented as of this encounter Visit Diagnoses Not on filedocumented in this encounter Care Teams Computer Lab Assistant Relationship Specialty Start Date End Date Liv New NP [address] [place] [address] PCP - General Family Medicine 02/29/24 documented as of this encounter
--- OUTSIDE RECORDS SUMMARY | 2025-07-03 19:52 | XMS_ITS | Encounter Summary ---
Author Organization [employer] [facility] Address [address] [facility] 7t [place] [address] Care Team Providers Care Honing Machine Operator Tool Name Role Phone Darvin Ferro MD Primary Care Provider Judy Perdue Primary Care Provider [phone] Liv New NP Primary Care Provider [phone] Encounter Details Date Type Department Care Team (Latest Contact Info) Description 10/01/2018 Abstract [facility] Dental, Provider, DDS Social History [...] Description 11/11/2025 10:00 AM EDT Office Visit [facility] ADULT DENTAL [address] [place] [address] Ryan, Lauren [address] [place] [address] documented as of this encounter Visit Diagnoses Not on filedocumented in this encounter Care Teams Honing Machine Operator Tool Relationship Specialty Start Date End Date Darvin Ferro MD PCP - General Family Medicine 06/13/19 07/25/22 Judy Mendez FNP [address] [place] [address] PCP - General Family Medicine 07/26/22 02/28/24 Liv New NP [address] [place] [address] PCP - General Family Medicine 02/29/24 documented as of this encounter
--- OUTSIDE RECORDS SUMMARY | 2025-07-03 19:52 | XMS_ITS | Encounter Summary ---
Author Organization [employer] Address [address] [facility] [address] [place] [address] Care Team Providers Care Help Desk Assistant Name Role Phone JeisonLiv rueda MARGARETTE Primary Care Provider [phone] Encounter Details Date Type Department Care Team (Late st Contact Info) Description 07/03/2025 Orders Only GENERIC EXTERNAL DATA DEPARTMENT Provider, Generic External Data Social History Tobacco Use Types Packs/Day Years [...] Description 11/11/2025 10:00 AM EDT Office Visit [facility] ADULT DENTAL [address] [place] [address] Ryan Lauren [address] [place] [address] documented as of this encounter Procedures Procedure Name Priority Date/Time Associated Diagnosis Comments CBC WITH AUTO DIFFERENTIAL Routine 07/03/2025 12:54 PM EDT COMPREHENSIVE METABOLIC PANEL Routine 07/03/2025 12:54 PM EDT documented in this encounter Results * (ABNORMAL) Comprehensive Metabolic Panel (07/03/2025 12:54 PM EDT) Sodium 141 135 - 145 mmol/L [facility] Potassium 4.4 3.3 - 5.1 mmol/L [facility] Chloride 108 96 - 108 mmol/L [facility] Carbon Dioxide 30(H) 22 - 29 mmol/L [facility] Anion Gap 7(L) 12 - 20 [facility] Urea Nitrogen (BUN) 14 9 - 16 mg/dL [facility] Creatinine, Serum 0.78 0.5 - 1.4 mg/dL [facility] Creatinine Clr Calc Pharmacy 87.6 [facility] Comment:Provided height and weight: 162.56 cm,77.111 kg.eGFR (calculated from the MDRD study equation) and eCrCl(calculated from the Cockcroft-Gault equation) are based ondifferent parameters and may not yield comparable results.If eCrCl result is absurd, please check patient'sheight/weight. Estimated Glomerular Filt Rate >60 [facility] Comment:Chronic Kidney Disea se: Estimated GFR < 60 mL/min/1.79w3Jeqyjr Kidney Disease: Estimated GFR < 15 mL/min/1.73m2 Glucose 94 60 - 115 mg/dL [facility] Calcium 9.2 8.4 - 10.2 mg/dL [facility] Bilirubin, Total 1.0 0.0 - 1.0 mg/dL [facility] Aspartate Amino Transferase 22 5 - 31 U/L [facility] Alanine Aminotransferase 13 0 - 31 U/L [facility] Total Protein 6.9 6.5 - 8.0 g/dL [facility] Albumin Level 4.2 3.5 - 5.0 g/dL [facility] Alkaline Phosphatase 73 39 - 117 U/L [facility] 07/03/2025 12:5 4 PM EDT 07/03/2025 12:57 PM EDT us Generic External Data Provider LAB BLOOD ORDERAB LES Final Result [facility] [address] [place] [phone] [phone] * (ABNORMAL) CBC auto differential (07/03/2025 12:54 PM EDT) White Blood Count 8.2 4.8 - 10.8 X10*3/uL [facility] Red Blood Count 4.33 4.20 - 5.50 X10*6/uL [facility] Hemoglobin 12.6 12.0 - 16.0 g/dl [facility] Hematocrit 39.3 37.0 - 47.0 % [facility] Mean Corpuscular Volume 90.8 80.0 - 98.0 fL [facility] Mean Corpuscular Hemoglobin 29.1 27.0 - 33.0 pg [facility] Mean Corpuscular HGB Conc 32.1 31.0 - 35.0 g/dl [facility] Red Cell Distribution Width 11.9 11.0 - 16.0 % [facility] Platelet Count 229 160 - 400 X10*3/uL [facility] Mean Platelet Volume 9.5 9.4 - 12.3 fL [facility] Neutrophils Percent Auto 78.7(H) 45 - 73 % [facility] Imm Gran Pct Auto 0.1 0.0 - 0.4 % [facility] Lymphocytes Percent Auto 16.4(L) 20 - 40 % [facility] Monocytes Percent Auto 3.8 2 - 11 % [facility] Eosinophils Percent Auto 0.5 0 - 4 % [facility] Basophils Percent Auto 0.5 0 - 2 % [facility] NRBC Pct Auto 0.0 0.0 - 0.2 /100WBC [facility] Neutrophils Absolute Auto 6.5 2.0 - 8.3 x10*3/uL [facility] Imm Gran Abs Auto 0.01 0.00 - 0.03 X10*3/uL [facility] Lymphocytes Absolute Auto 1.3 1.2 - 4.9 X10*3/uL [facility] Monocytes Absolute Auto 0.3 0.1 - 1.2 X10*3/uL [facility] Eosinophils Absolute Auto 0.0 0.0 - 0.4 X10*3/uL [facility] Basophils Absolute Auto 0.0 0.0 - 0.2 X10*3/uL [facility] NRBC Abs Auto 0.000 0.0 - 0.012 X10*3/uL [facility] 07/03/2025 12:5 4 PM EDT 07/03/2025 12:57 PM EDT us Generic External Data Provider LAB BLOOD ORDERAB LES Final Result Performing Organization Address City/State/[facility] Co de Phone Number [facility] [address] [place] [address] [phone] documented in this encounter Visit Diagnoses Not on filedocumented in this encounter Care Teams Help Desk Assistant Relationship Specialty Start Date End Date Liv New NP [address] [place] [phone] PCP - General Family Medicine 02/29/24 documented as of this encounter
--- OUTSIDE RECORDS SUMMARY | 2025-07-03 19:52 | XMS_ITS | Encounter Summary ---
Author Organization [employer] Address [address] [facility] 7t [place] [address] Care Team Providers Care Dye Box Operator Name Role Phone JeisonLiv rueda MARGARETTE Primary Care Provider [phone] Reason for Visit * Reason Onset Date Comments no show reschedule 08/21/2024 Encounter Details Date Type Department Care Team ([facility] st Contact Info) Description 08/21/2024 Telephone [facility] ADULT DENTAL [address] [place] [address] Simin Banda no show reschedule Social History [...] Description 11/11/2025 10:00 AM EDT Office Visit [facility] ADULT DENTAL [address] [place] [address] Ryan Lauren [address] [place] [address] documented as of this encounter Visit Diagnoses Not on filedocumented in this encounter Care Teams Dye Box Operator Relationship Specialty Start Date End Date Liv New NP [address] [place] [address] PCP - General Family Medicine 02/29/24 documented as of this encounter
--- OUTSIDE RECORDS SUMMARY | 2025-07-03 19:52 | XMS_ITS | Encounter Summary ---
Author Organization [employer] Address 75 [facility] 7 [place] [address] Care Team Providers Care Evp Head Of [employer] Experience Strategy Name Role Phone Judy Mendez Primary Care Provider [phone] Liv New NP Primary Care Provider [phone] Reason for Visit * Reason Onset Date Comments PT1 03/15/2023 Encounter Details Date Type Department Care Team ([facility] st Contact Info) Description 03/15/2023 Telephone [facility] MEDICINE [address] [place] [address] Judy Mendez FNP [address] [place] [address] PT1 Social History Tobacco Use Types Packs/Day [...] Pt called in again regarding PT1 for [facility] Allergy / [address] [place] [address] insurance keeps denying pt1 because they want to know why she gets seen at hydrator operator . * Telephone Encounter - Brandon Abad [...] pt requesting PT1 Form: Name of facility: [facility] Specialty: Allergy Location: [address] [place] [address] Date: 04/03/2023 Time: 9:30 am fax: n/a Phone: n/a wheelchair: no Electromechanical Technologist: Yes All Future Appt's documented in this encounter Plan of Treatment Upcoming Encounters Date Type Department Care Team (Late st Contact Info) Description 11/11/2025 10:00 AM EDT Office Visit [facility] ADULT DENTAL [address] [place] [address] Ryan, Lauren [address] [place] [address] documented as of this encounter Visit Diagnoses Not on filedocumented in this encounter Care Teams Evp Head Of [employer] Experience Strategy Relationship Specialty Start Date End Date Judy Mendez FNP [address] [place] [address] PCP - General Family Medicine 07/26/22 02/28/24 Liv New NP [address] [place] [address] PCP - General Family Medicine 02/29/24 documented as of this encounter
--- OUTSIDE RECORDS SUMMARY | 2025-07-03 19:52 | XMS_ITS | Encounter Summary ---
Author Organization [employer] Address 75 [facility] 7 [place] [address] Care Team Providers Care Brickmason Apprentice Name Role Phone Judy MendezP Primary Care Provider [phone] Liv New NP Primary Care Provider [phone] Reason for Visit * Reason Onset Date Comments PT1 01/17/2023 Encounter Details Date Type Department Care Team ([facility] st Contact Info) Description 01/17/2023 Telephone [facility] MEDICINE [address] [place] [address] Judy Mendez FNP [address] [place] [address] PT1 Social History Tobacco Use Types Packs/Day [...] denial letter via mail. PT-1 Request Number [id number] is Authorized - [facility] 230 [facility] [address] PT-1 Request Number [id number] is Pending - [facility] Specialty Offices [address] [place] [address] [place] [address] * Telephone Encounter - Yolanda Cobian - 01/17/2023 2:11 PM EDT PT1- Location: [address] [place] [address] [place] [address] Phone: Date: 01/26/23 Time: 10:45 am Pastry Wrapper Needed: yes Wheel Chair Access? No PT1- Location: [address] [place], [place] Date: 02/22/23 Time: 10:15 am Pastry Wrapper Needed: yes Wheel Chair Access? No documented in this encounter Plan of Treatment Upcoming Encounters Date Type Department Care Team (Late st Contact Info) Description 11/11/2025 10:00 AM EDT Office Visit [facility] ADULT DENTAL [address] [place] [address] Lauren Davis [address] [place] [address] documented as of this encounter Visit Diagnoses Not on filedocumented in this encounter Care Teams Brickmason Apprentice Relationship Specialty Start Date End Date Judy Mendez FNP [address] [place] [address] PCP - General Family Medicine 07/26/22 02/28/24 Liv New NP [address] [place] [address] PCP - General Family Medicine 02/29/24 documented as of this encounter
[2025-07-03 20:48] VITALS: BP 130/69; PULSE 68; RESP 15; TEMP 36.7; O2SAT 100
== END 2025-07-03 20:48 | disposition home or self-care (01) ==
PROVIDERS: Physician Assistant; Emergency Provider Student in an Organized Health Care Education/Training Program
DX: R51.9 Headache, unspecified (principal); R11.2 Nausea with vomiting, unspecified
CPT/HCPCS: 36415; 80053; 85025; 99283; 99284

== ENCOUNTER 2025-07-11 07:49 | Outpatient (AMB) | payer MEDICAID, SELFPAY ==
--- OUTSIDE RECORDS SUMMARY | 2025-07-10 10:30 | XMS_ITS | Encounter Summary ---
Author Organization [employer] Address 75 [facility] 7t [place] [address] Care Team Providers Care Cataract Lens Generator Name Role Phone Liv New NP Primary Care Provider [phone] Reason for Visit * Reason Comments SICK VISIT Encounter Details Date Type Department Care Team ([facility] st Contact Info) Description 07/10/2025 10:30 AM EST Office Visit [facility] [address] [place], [place] [id number] Claudia Madrigal FNP [address] [place], [place] [phone] Facial dermatitis (Primary Dx) Social History Tobacco Use Types [...] AM EDT documented as of this encounter Last Filed Vital Signs Vital Sign Reading Time Taken Comments Blood Pressure 124/76 07/10/2025 10:20 AM EST Pulse 87 07/10/2025 10:20 AM EST Temperature 36.4 C (97.6 F) 07/10/2025 10:20 AM EST Respiratory Rate 16 07/10/2025 10:20 AM EST Oxygen Saturation 98% 07/10/2025 10:20 AM EST Inhaled Oxygen Concentration - - Weight 81.4 kg (179 lb 6.4 oz) 07/10/2025 10:20 AM EST Height 162.6 cm (5' 4 ) 07/10/2025 10:20 AM EST Body Mass Index 30.79 07/10/2025 10:20 AM EST documented in this encounter Progress Notes * MARK Costello - 07/10/2025 10:30 AM EST Faye Roe is a 49 y.o. female who presents for a acute visit- acute pruritic facial facial rashes. Faye reports - Woke up on July 10, 2025 with a rash on the face - Rash is very itchy - Denies fever, chills, nausea, vomiting, headache, muscle pain. - Denies using using new cream, face wash, new perfume or comestics products. - Denied taking any new medication - Reports receiving allergy shot for sinusitis on July 09, 2025 at 9:00 AM, with possible dose increase. Denies previous similar reaction to allergy shots - No prior history of facial rash; history of eczema affecting neck, arms, and legs, but not face - Uses cold water compress for relief of itchiness - Reports current hot environment increases itchiness Problem List[1] Allergies[2] Review of Systems Constitutional: Negative for chills and fever. HENT: Negative for sore throat. Respiratory: Negative for cough, chest tightness, shortness of breath and wheezing. Cardiovascular: Negative for chest pain and palpitations. Musculoskeletal: Negative for arthralgias, joint swelling and myalgias. Skin: Positive for rash. Pruritic facial rash Psychiatric/Behavioral: Negative for suicidal ideas. Vitals: 07/10/25 1020 BP: 124/76 BP Location: Left arm Patient Position: Sitting BP Cuff Size: Adult Pulse: 87 Resp: 16 Temp: 97.6 ??F (36.4 ??C) TempSrc: Oral SpO2: 98% Weight: 179 lb 6.4 oz (81.4 kg) Height: 5' 4 (1.626 m) Physical Exam Vitals reviewed. Constitutional: Appearance: Normal appearance. HENT: Head: Atraumatic. Cardiovascular: Rate and Rhythm: Normal rate and regular rhythm. Pulses: Normal pulses. Heart sounds: Normal heart sounds. No murmur heard. Pulmonary: Effort: Pulmonary effort is normal. Breath sounds: Normal breath sounds. No wheezing. Skin: Findings: Erythema and rash present. Comments: Pruritic dry erythematous skin lesions on bilateral cheeks , forehead and perioral Neurological: Mental Status: She is alert and oriented to person, place, and time. Psychiatric: Mood and Affect: Mood normal. Behavior: Behavior normal. Assessment & Plan Facial dermatitis - Acute pruritic erythematous rash on the face - bilateral cheeks , forehead and perioral - Possible etiology includes atopic dermatitis, recent allergy immunotherapy injection with dose increase, though other causes not excluded. - Prescribed hydrocortisone cream for topical application to affected areas. Prescribed hydroxyzineto be taken as needed, up to three times daily, with caution regarding sedation. Advised use of cold compresses to alleviate symptoms. Instructed to avoid scratching to prevent skin breakdown and secondary wound formation. Advised to avoid unfamiliar soaps and continue use of her regular unscented soap - Dove.. Recommended to contact the allergy clinic regarding the recent injection and dose change. If no improvement within 48 hours of treatment initiation, or if symptoms persist by the end of Monday, instructed to return for evaluation on Monday. - Risks and side effects: Discussed potential sedation with oral antihistamine. Consent obtained for treatment plan. Orders: hydrOXYzine HCl (Atarax) 25 MG tablet; Take 1 tablet (25 mg) by mouth if needed in the morning, at noon, and at bedtime for itching for up to 90 doses. hydrocortisone 0.5 % cream; Apply topically 2 times daily. Current Medications[3] No follow-ups on file. Visit Conducted in: Dutch Translation by [employer] ID # [id number] This note was drafted using Ambient (AI) technology. The patient/patient's guardian has been informed and has consented to the use of this technology: Yes [1] Patient Active Problem List Diagnosis Nummular dermatitis Eczema Allergic rhinitis Mild asthma Carpal tunnel syndrome Chloasma Chronic sinusitis Depressive disorder Gastroesophageal reflux disease Migraine headache Skin lesion of breast Seborrheic keratoses Skin tag Symptomatic irreversible pulpitis Dental abscess Supernumerary teeth Retained deciduous tooth Severe dental caries Unintentional weight loss Breast screening Chronic nonintractable headache Lymphadenopathy Colon cancer screening Dietary counseling Exercise counseling Healthcare maintenance Dental plaque Tipped teeth Facial dermatitis [2] Allergies Allergen Reactions Wound Dressing Adhesive Penicillins Rash [3] Current Outpatient Medications: albuterol 108 (90 Base) MCG/ACT inhaler, Inhale 2 puffs every 6 (six) hours if needed for wheezing., Disp: 18 g, Rfl: 11 amitriptyline (Elavil) 25 MG tablet, Take 1 tablet (25 mg) by mouth at bedtime., Disp: 30 tablet, Rfl: 1 buPROPion XL (Wellbutrin XL) 150 MG 24 hr tablet, Take 150 mg by mouth in the morning., Disp: , Rfl: clonazePAM (KlonoPIN) 1 MG tablet, Take 1 tablet by mouth 2 times daily., Disp: , Rfl: cyclobenzaprine (Flexeril) 10 MG tablet, Take 1 tablet (10 mg) by mouth 3 times daily for 10 days.,Disp: 30 tablet, Rfl: 0 divalproex (Depakote) 500 MG EC tablet, Take 1 tablet by mouth 2 times daily., Disp: , Rfl: Emollient (CeraVe Moisturizing) cream, Apply 340 g topically 2 times daily., Disp: 340 g, Rfl: 11 EPINEPHrine (Epipen) 0.3 MG/0.3ML injection syringe, INJECT 0.3 MG (0.3 ML) INTRAMUSCULARLY DIRECTED FOR ANAPHYLAXIS, Disp: , Rfl: famotidine (Pepcid) 40 MG tablet, Take 40 mg by mouth at bedtime., Disp: , Rfl: hydrocortisone 0.5 % cream, Apply topically 2 times daily., Disp: 15 g, Rfl: 0 hydrOXYzine HCl (Atarax) 25 MG tablet, Take 1 tablet (25 mg) by mouth if needed in the morning, at noon, and at bedtime for itching for up to 90 doses., Disp: 90 tablet, Rfl: 0 loratadine (Claritin) 10 MG tablet, Take 10 mg by mouth Once per day., Disp: , Rfl: lurasidone (Latuda) 80 MG tablet, TAKE 1 TABLET BY MOUTH EVERY EVENING WITH MEALS FOR MOOD STABILITY, Disp: , Rfl: montelukast (Singulair) 10 MG tablet, Take 10 mg by mouth at bedtime., Disp: , Rfl: Stiolto Respimat 2.5-2.5 MCG/ACT aerosol solution inhaler, INHALE 2 PUFFS INTO THE LUNGS DAILY FOR 30 DAYS, Disp: , Rfl: Tezspire 210 MG/1.91ML solution prefilled syringe, , Disp: , Rfl: triamcinolone (Kenalog) 0.1 % cream, APPLY A THIN LAYER TO THE AFFECTED AREA(S) 2 TIMES DAILY. MIX WITH CERAVE, Disp: 454 g, Rfl: 3 zolpidem CR (Ambien CR) 12.5 MG ER tablet, Take 12.5 mg by mouth at bedtime., Disp: , Rfl: documented in this encounter Miscellaneous Notes * Assessment & Plan Note - MARK Costello - 07/10/2025 10:30 AM EST Associated Problem(s): Facial dermatitis - Acute pruritic erythematous rash on the face - bilateral cheeks , forehead and perioral - Possible etiology includes atopic dermatitis, recent allergy immunotherapy injection with dose increase, though other causes not excluded. - Prescribed hydrocortisone cream for topical application to affected areas. Prescribed hydroxyzineto be taken as needed, up to three times daily, with caution regarding sedation. Advised use of cold compresses to alleviate symptoms. Instructed to avoid scratching to prevent skin breakdown and secondary wound formation. Advised to avoid unfamiliar soaps and continue use of her regular unscented soap - Dove.. Recommended to contact the allergy clinic regarding the recent injection and dose change. If no improvement within 48 hours of treatment initiation, or if symptoms persist by the end of Monday, instructed to return for evaluation on Monday. - Risks and side effects: Discussed potential sedation with oral antihistamine. Consent obtained for treatment plan. Orders: hydrOXYzine HCl (Atarax) 25 MG tablet; Take 1 tablet (25 mg) by mouth if needed in the morning, at noon, and at bedtime for itching for up to 90 doses. hydrocortisone 0.5 % cream; Apply topically 2 times daily. documented in this encounter Plan of Treatment Upcoming Encounters Date Type Department Care Team (Late st Contact Info) Description 11/11/2025 10:00 AM EDT Office Visit [facility] ADULT D[facility] [address] [place] [address] Dyllan Davisaris [address] [place] [address] documented as of this encounter Visit Diagnoses Diagnosis Facial dermatitis- Primary documented in this encounter Care Teams Cataract Lens Generator Relationship Specialty Start Date End Date Liv New NP [address] [place] [address] PCP - General Family Medicine 02/29/24 documented as of this encounter
--- OUTSIDE RECORDS SUMMARY | 2025-07-11 07:51 | XMS_ITS | Encounter Summary ---
Author Organization [employer] Address 75 [facility] 7t [place] [address] Care Team Providers Care Elastic Attacher Chainstitch Name Role Phone Judy Mendez Primary Care Provider [phone] Liv New NP Primary Care Provider [phone] Encounter Details Date Type Department Care Team (Late st Contact Info) Description 04/24/2023 Orders Only [facility] & PEDS [address] [place], [place] [phone] Judy Mendez FNP [address] [place] [address] Fibromyalgia (Primary Dx) Social History Tobacco Use [...] 10:00 AM EDT Office Visit [facility] ADULT DENTAL [address] [place] [address] Lauren Davis [address] [place] [address] documented as of this encounter Visit Diagnoses Diagnosis Fibromyalgia- Primary Unspecified myalgia and myositis documented in this encounter Care Teams Elastic Attacher Chainstitch Relationship Specialty Start Date End Date Judy Mendez FNP [address] [place] [address] PCP - General Family Medicine 07/26/22 02/28/24 Liv New NP [address] [place] [address] PCP - General Family Medicine 02/29/24 documented as of this encounter
--- OUTSIDE RECORDS SUMMARY | 2025-07-11 07:51 | XMS_ITS | Encounter Summary ---
Author Organization [employer] Address 75 [facility] 7t [place] [address] Care Team Providers Care Teacher Tutor Name Role Phone JeisonLiv rueda MARGARETTE Primary Care Provider [phone] Reason for Visit * Reason Onset Date Comments no show reschedule 08/21/2024 Encounter Details Date Type Department Care Team ([facility] st Contact Info) Description 08/21/2024 Telephone [facility] ADULT DENTAL [address] [place] [address] Simin Banda no show reschedule Social History [...] 10:00 AM EDT Office Visit [facility] ADULT DENTAL [address] [place] [address] Ryan Lauren [address] [place] [address] documented as of this encounter Visit Diagnoses Not on filedocumented in this encounter Care Teams Teacher Tutor Relationship Specialty Start Date End Date Liv New NP [address] [place] [address] PCP - General Family Medicine 02/29/24 documented as of this encounter
--- OUTSIDE RECORDS SUMMARY | 2025-07-11 07:51 | XMS_ITS | Encounter Summary ---
Author Organization [employer] Address 75 [facility] 7t [place] [address] Care Team Providers Care Industrial Waste Inspector Name Role Phone Liv New NP Primary Care Provider [phone] Reason for Visit * Reason Onset Date Comments PT-1 05/30/2024 Encounter Details Date Type Department Care Team ([facility] st Contact Info) Description 05/30/2024 Telephone [facility] MEDICINE [address] [place], [place] [phone] Liv New NP [address] [place] [address] PT-1 Social History Tobacco Use Types Packs/Day [...] Y/N: Yes Provider name or facility name: [facility] Facility Address: [address] [place] [address] Escort needed: Y/N: Yes Do you have a wheelchair: Y/N: No If yes- Manual or electric: no Visits: 4 to five times a month Patient calling requesting PT1 Home Address verified: Y/N: Yes Provider name or facility name: [facility] Facility Address: [address] [place], [place] Escort needed: Y/N: Yes Do you have a wheelchair: Y/N: No If yes- Manual or electric: no Visits: 6 documented in this encounter Plan of Treatment Upcoming Encounters Date Type Department Care Team ([facility] Contact Info) Description 11/11/2025 10:00 AM EDT Office Visit [facility] ADULT DENTAL [address] [place] [address] Ryan, Lauren [address] [place] [address] documented as of this encounter Visit Diagnoses Not on filedocumented in this encounter Care Teams Industrial Waste Inspector Relationship Specialty Start Date End Date Liv New NP [address] [place] [address] PCP - General Family Medicine 02/29/24 documented as of this encounter
--- OUTSIDE RECORDS SUMMARY | 2025-07-11 07:51 | XMS_ITS | Encounter Summary ---
Author Organization [employer] Address 75 [facility] 7 [place] [address] Care Team Providers Care Audit Reviewer Name Role Phone Judy MendezP Primary Care Provider [phone] Liv New NP Primary Care Provider [phone] Reason for Visit * Reason Onset Date Comments PT1 01/17/2023 Encounter Details Date Type Department Care Team ([facility] st Contact Info) Description 01/17/2023 Telephone [facility] MEDICINE [address] [place] [address] Judy Mendez FNP [address] [place] [address] PT1 Social History Tobacco Use Types Packs/Day [...] denial letter via mail. PT-1 Request Number [id number] is Authorized - [facility] 230 [facility] [address] PT-1 Request Number [id number] is Pending - [facility] Specialty Offices [address] [place] [address] [place] [address] * Telephone Encounter - Yolanda Cobian - 01/17/2023 2:11 PM EDT PT1- Location: [address] [place] [address] [place] [address] Phone: Date: 01/26/23 Time: 10:45 am Crab Catcher Needed: yes Wheel Chair Access? No PT1- Location: [address] [place], [place] Date: 02/22/23 Time: 10:15 am Crab Catcher Needed: yes Wheel Chair Access? No documented in this encounter Plan of Treatment Upcoming Encounters Date Type Department Care Team (Late st Contact Info) Description 11/11/2025 10:00 AM EDT Office Visit [facility] ADULT DENTAL [address] [place] [address] Lauren Davis [address] [place] [address] documented as of this encounter Visit Diagnoses Not on filedocumented in this encounter Care Teams Audit Reviewer Relationship Specialty Start Date End Date Judy Mendez FNP [address] [place] [address] PCP - General Family Medicine 07/26/22 02/28/24 Liv New NP [address] [place] [address] PCP - General Family Medicine 02/29/24 documented as of this encounter
--- OUTSIDE RECORDS SUMMARY | 2025-07-11 07:51 | XMS_ITS | Clinical Summary ---
Author Organization [employer] Address [address] [facility] 7t [place] [address] Care Team Providers Care Slot Key Person Name Role Phone Shaq Livshiva PFEIFFER Primary Care Provider [phone] Allergies Active Allergy Reactions Criticality Noted Date Comments Penicillins Rash Low Wound Dressing Adhesive 09/12/2016 Medications Emollient (CeraVe Moisturizing) creamIndications: Intrinsic allergic eczema Apply 340 g topically 2 times daily. 340 g 11 023 Active amitriptyline (Elavil) 25 MG tabletIndications :Chronic nonintractable headache, unspecified headache type Take 1 tablet (25 mg) by mouth at bedtime. 30 tablet 1 024 Active albuterol 108 (90 Base) MCG/ACT inhalerIndication s:Mild intermittent asthma, unspecified whether complicated Inhale 2 puffs every 6 (six) hours if needed for wheezing. 18 g 11 024 Active cyclobenzaprine (Flexeril) 10 MG tablet Take 1 tablet (10 mg) by mouth 3 times daily for 10 days. 30 tablet 024 Active triamcinolone (Kenalog) 0.1 % creamIndications: Chronic pruritus APPLY A THIN LAYER TO THE AFFECTED AREA(S) 2 TIMES DAILY. MIX WITH CERAVE 454 g 3 025 Active buPROPion XL (Wellbutrin XL) 150 MG 24 hr tablet Take 150 mg by mouth in the morning. 025 Active clonazePAM (KlonoPIN) 1 MG tablet Take 1 tablet by mouth 2 times daily. 025 Active divalproex (Depakote) 500 MG EC tablet Take 1 tablet by mouth 2 times daily. 025 Active EPINEPHrine (Epipen) 0.3 MG/0.3ML injection syringe INJECT 0.3 MG (0.3 ML) INTRAMUSCULARLY DIRECTED FOR ANAPHYLAXIS Active famotidine (Pepcid) 40 MG tablet Take 40 mg by mouth at bedtime. Active loratadine (Claritin) 10 MG tablet Take 10 mg by mouth Once per day. Active lurasidone (Latuda) 80 MG tablet TAKE 1 TABLET BY MOUTH EVERY EVENING WITH MEALS FOR MOOD STABILITY Active montelukast (Singulair) 10 MG tablet Take 10 mg by mouth at bedtime. Active Tezspire 210 MG/1.91ML solution prefilled syringe Active Stiolto Respimat 2.5-2.5 MCG/ACT aerosol solution inhaler INHALE 2 PUFFS INTO THE LUNGS DAILY FOR 30 DAYS Active zolpidem CR (Ambien CR) 12.5 MG ER tablet Take 12.5 mg by mouth at bedtime. Active hydrOXYzine HCl (Atarax) 25 MG tabletIndications :Facial dermatitis Take 1 tablet (25 mg) by mouth if needed in the morning, at noon, and at bedtime for itching for up to 90 doses. 90 tablet Active hydrocortisone 0.5 % creamIndications: Facial dermatitis Apply topically 2 times daily. 15 g Active hydrOXYzine pamoate (Vistaril) 25 MG capsuleIndication s:Nummular dermatitis Take 1 capsule (25 mg) by mouth every 6 (six) hours if needed for itching for up to 10 days. 30 capsule 023 2024 Discontin ued(Thera py completed ) dextran 70-hypromellose (artificial tears) 0.1-0.3 % ophthalmic solutionIndicatio ns:Dry eyes, bilateral Administer 1 drop into both eyes if needed in the morning, at noon, and at bedtime for dry eyes. 15 mL 3 024 2024 Active Problems Problem Noted Date Diagnosed Date Facial dermatitis 07/10/2025 Assessment & Plan (07/10/2025 10:23 PM EST): - Acute pruritic erythematous rash on the face - bilateral cheeks , forehead and perioral - Possible etiology includes atopic dermatitis, recent allergy immunotherapy injection with dose increase, though other causes not excluded. - Prescribed hydrocortisone cream for topical application to affected areas. Prescribed hydroxyzine to be taken as needed, up to three [...] % cream; Apply topically 2 times daily. Dental plaque 05/07/2025 Tipped teeth 05/07/2025 Colon [...] Encounters Date Type Department Care Team Description 07/10/2025 10:30 AM EST Office Visit [address] [address] Claudia Madrigal FNP Facial dermatitis (Primary Dx) 07/10/2025 Travel 07/10/[address] [address] Liv New NP Nurse Triage 07/03/2025 Orders Only GENERIC EXTERNAL DATA DEPARTMENT Provider, Generic External Data 06/24/2025 Patient Outreach [address] [address] Liv New NP Care Coordination (CHW outreach for SDOH PT-1 and food needs-referral completed /) 06/23/[address] [address] Liv New NP PT-1 05/30/2025 Patient Outreach [address] [address] Liv New NP Care Coordination (CHW outreach for SDOH PT-1 and food needs-referral completed /) 05/30/[address] [address] Liv New PLANT MAINTENANCE MECHANIC pt1 05/14/2025 Telephone [facility] [address] [place] [address]ovia DDS 05/07/2025 9:00 AM EDT Office Visit [facility] [address] [place] [phone] Ryan, Lauren Tipped teeth (Primary Dx); Dental plaque; Supernumerary teeth from Last 3 Months Immunizations Immunization Administration Dates Next Due Influenza injectable quadriv alent preservative free 09/23/2021,06/27/2019,10/21/2015 Influenza, IIV3, injectable 05/23/2011 Influenza, Split (incl. keiry fied surface antigen) 06/25/2012 Influenza, seasonal, injecta ble, preservative free 10/10/2016 Pfizer Covid-19 Vaccine 12+ 04/06/2021, Pneumococcal Polysaccharide PPSV23 08/19/2010 TD (adult), 2 [...] Mass Index 30.79 07/10/2025 10:20 AM EST Plan of Treatment Upcoming Encounters Date Type Department Care Team (Late st Contact Info) Description 11/11/2025 10:00 AM EDT Office Visit [facility] [address] [place] [address] Ryan, Lauren [address] [place] [address] Health Maintenance Due Date Last Done Comments [...] exists Zoster Vaccines (1 of 2) 11/24/2025 Dental X-Ray: Bitewings 05/08/2026 05/07/20 25, 07/11/2014, 05/06/2010 Tobacco Screening 07/10/2026 07/10/2025 Mammogram 12/16/2026 12/16/2024, 12/2021, 09/28/2020, Additional history [...] Blood Count 8.2 4.8 - 10.8 X10*3/uL [facility] Red Blood Count 4.33 4.20 - 5.50 X10*6/uL [facility] Hemoglobin 12.6 12.0 - 16.0 g/dl [facility] Hematocrit 39.3 37.0 - 47.0 % [facility] Mean Corpuscular Volume 90.8 80.0 - 98.0 fL [facility] Mean Corpuscular Hemoglobin 29.1 27.0 - 33.0 pg [facility] Mean Corpuscular HGB Conc 32.1 31.0 - 35.0 g/dl [facility] Red Cell Distribution Width 11.9 11.0 - 16.0 % [facility] Platelet Count 229 160 - 400 X10*3/uL [facility] Mean Platelet Volume 9.5 9.4 - 12.3 fL [facility] Neutrophils Percent Auto 78.7(H) 45 - 73 % [facility] Imm Gran Pct Auto 0.1 0.0 - 0.4 % [facility] Lymphocytes Percent Auto 16.4(L) 20 - 40 % [facility] Monocytes Percent Auto 3.8 2 - 11 % [facility] Eosinophils Percent Auto 0.5 0 - 4 % [facility] Basophils Percent Auto 0.5 0 - 2 % [facility] NRBC Pct Auto 0.0 0.0 - 0.2 /100WBC [facility] Neutrophils Absolute Auto 6.5 2.0 - 8.3 x10*3/uL [facility] Imm Gran Abs Auto 0.01 0.00 - 0.03 X10*3/uL [facility] Lymphocytes Absolute Auto 1.3 1.2 - 4.9 X10*3/uL [facility] Monocytes Absolute Auto 0.3 0.1 - 1.2 X10*3/uL [facility] Eosinophils Absolute Auto 0.0 0.0 - 0.4 X10*3/uL [facility] Basophils Absolute Auto 0.0 0.0 - 0.2 X10*3/uL [facility] NRBC Abs Auto 0.000 0.0 - 0.012 X10*3/uL [facility] 07/03/2025 12:5 4 PM EDT 07/03/2025 12:57 PM EDT us Generic External Data Provider LAB BLOOD ORDERAB LES Final Result [facility] [address] [place] [address] [phone] * (ABNORMAL) Comprehensive Metabolic Panel (07/03/2025 12:54 PM EDT) Sodium 141 135 - 145 mmol/L [facility] Potassium 4.4 3.3 - 5.1 mmol/L [facility] Chloride 108 96 - 108 mmol/L [facility] Carbon Dioxide 30(H) 22 - 29 mmol/L [facility] Anion Gap 7(L) 12 - 20 [facility] Urea Nitrogen (BUN) 14 9 - 16 mg/dL [facility] Creatinine, Serum 0.78 0.5 - 1.4 mg/dL [facility] Creatinine Clr Calc Pharmacy 87.6 [facility] Comment:Provided height and weight: 162.56 cm,77.111 kg.eGFR (calculated from the MDRD study equation) and eCrCl(calculated from the Cockcroft-Gault equation) are based ondifferent parameters and may not yield comparable results.If eCrCl result is absurd, please check patient'sheight/weight. Estimated Glomerular Filt Rate >60 [facility] Comment:Chronic Kidney Disea se: Estimated GFR < 60 mL/min/1.84n0Umowbi Kidney Disease: Estimated GFR < 15 mL/min/1.73m2 Glucose 94 60 - 115 mg/dL [facility] Calcium 9.2 8.4 - 10.2 mg/dL [facility] Bilirubin, Total 1.0 0.0 - 1.0 mg/dL [facility] Aspartate Amino Transferase 22 5 - 31 U/L [facility] Alanine Aminotransferase 13 0 - 31 U/L [facility] Total Protein 6.9 6.5 - 8.0 g/dL [facility] Albumin Level 4.2 3.5 - 5.0 g/dL [facility] Alkaline Phosphatase 73 39 - 117 U/L [facility] 07/03/2025 12:5 4 PM EDT 07/03/2025 12:57 PM EDT us Generic External Data Provider LAB BLOOD ORDERAB LES Final Result Performing Organization Address City/State/[facility] Co [facility] Phone Number [facility] [address] [place] [phone] * BI Mammogram Screening Tomosynthesis Bilateral (12/16/2024 9:10 AM EDT) Anatomical Region Laterality Modality Breast Bilateral Mammography 12/16/2024 9:10 AM EDT Narrative 12/24/2024 3:02 PM EDT [facility] [address] [place] [address] Mammography Report Signed Patient: Faye Kerr MR# : [id number] : 1975 Acct:[id number] Age/Sex: 49 / F ADM Date: 12/16/24 Loc: HO.MAMMO Attending Dr: Liv New PLANT MAINTENANCE MECHANIC Ordering Physician: Liv New NP Results: 1Negati ve Date of Service: 12/16/24 Follow Up: 1 Year From Orig inal Mammogram Procedure(s): MM tomosynthesis screening BI Accession Number(s): [id number] cc: Liv New PLANT MAINTENANCE MECHANIC EXAMINATION: MM SCREENING DIGITAL BREAST TOMOSYNTHESIS, BILATERAL [...] 12/24/24 1459 DD/ 0910 TD/TT: 12/16/24 0920 Erection Shop Supervisor: Procedure Note Donotuseinterpreter, Image - [facility] [address] [place], [place] [address] Mammography Report Signed Patient: Shea Kerr# : [id number] : 1975Acct:[id number] Age/Sex: 49 / FADM Date: 12/16/24 Loc: HO.MAMMO Attending Dr: Liv New PLANT MAINTENANCE MECHANIC Ordering Physician: Liv New NPResults: 1Negati ve Date of Service: 12/16/24Follow Up: 1 Year From Orig inal Mammogram Procedure(s): MM tomosynthesis screening BI Accession Number(s): [id number] cc: Liv New PLANT MAINTENANCE MECHANIC EXAMINATION: MM SCREENING DIGITAL BREAST TOMOSYNTHESIS, BILATERAL [...] OV> 12/24/24 1459 DD/ 0910 TD/TT: 12/16/24 09 Erection Shop Supervisor: Liv New NP IMG BI PROCEDURES Final Result from Last 3 Months or Most Recently Relevant to Health Maintenance Insurance [facility] C[facility] ST[place] ADULT Care Teams Slot Key Person Relationship Specialty Start Date End Date Liv New NP [address] [place] [phone] PCP - General Family Medicine 02/29/24
--- OUTSIDE RECORDS SUMMARY | 2025-07-11 07:51 | XMS_ITS | Encounter Summary ---
Author Organization [employer] Address [address] [facility] 7t [place] [address] Care Team Providers Care Montessori Preschool Teacher Name Role Phone Judy Mendez Primary Care Provider [phone] Liv New NP Primary Care Provider [phone] Reason for Visit * Reason Onset Date Comments PT1 03/15/2023 Encounter Details Date Type Department Care Team ([facility] st Contact Info) Description 03/15/2023 Telephone [facility] [address] [place] [address] Judy Mendez FNP [address] [place] [address] PT1 Social History Tobacco Use Types Packs/Day [...] Pt called in again regarding PT1 for [facility] Allergy / [address] [place] [address] insurance keeps denying pt1 because they want to know why she gets seen at automated teller manager . * Telephone Encounter - Brandon Abad [...] pt requesting PT1 Form: Name of facility: [facility] Specialty: Allergy Location: [address] [place] [address] Date: 04/03/2023 Time: 9:30 am fax: n/a Phone: n/a wheelchair: no Rolling Attendant: Yes All Future Appt's documented in this encounter Plan of Treatment Upcoming Encounters Date Type Department Care Team (Late st Contact Info) Description 11/11/2025 10:00 AM EDT Office Visit [facility]ULT [facility] [address] [place] [address] Ryan, Lauren [address] [place] [address] documented as of this encounter Visit Diagnoses Not on filedocumented in this encounter Care Teams Montessori Preschool Teacher Relationship Specialty Start Date End Date Judy Mendez FNP [address] [place] [address] PCP - General Family Medicine 07/26/22 02/28/24 Liv New NP [address] [place] [address] PCP - General Family Medicine 02/29/24 documented as of this encounter
--- OUTSIDE RECORDS SUMMARY | 2025-07-11 07:51 | XMS_ITS | Encounter Summary ---
Author Organization [employer] Address [address] [place] [address] 7t [place] [address] Care Team Providers Care Camp Nurse Name Role Phone Judy MendezP Primary Care Provider [phone] Liv New NP Primary Care Provider [phone] Reason for Visit * Reason Onset Date Comments TP appt 01/04/2023 Encounter Details Date Type Department Care Team (Late Contact Info) Description 01/04/2023 Telephone [facility] [address] [place] [address] Judy Mendez FNP [address] [place] [address] TP appt Social History Tobacco Use Types [...] appt with provider. Please contact pt at [phone] Uzbek Speaker documented in this encounter Plan of Treatment Upcoming Encounters Date Type Department Care Team (Late Contact Info) Description 11/11/2025 10:00 AM EDT Office Visit [facility] [address] [place] [address] Lauren Davis [address] [place] [address] documented as of this encounter Visit Diagnoses Not on filedocumented in this encounter Care Teams Camp Nurse Relationship Specialty Start Date End Date Judy Mendez FNP [address] [place] [address] PCP - General Family Medicine 07/26/22 02/28/24 Liv New NP [address] [place] [address] PCP - General Family Medicine 02/29/24 documented as of this encounter
--- OUTSIDE RECORDS SUMMARY | 2025-07-11 07:51 | XMS_ITS | Encounter Summary ---
Author Organization [employer] Address [address] [facility] 7t [place] [address] Care Team Providers Care Cathead Worker Name Role Phone Liv New NP Primary Care Provider [phone] Reason for Visit * Reason Onset Date Comments pt1 05/30/2025 Encounter Details Date Type Department Care Team ([facility] st Contact Info) Description 05/30/2025 Telephone [facility] MEDICINE [address] [place], [place] [phone] Liv New NP [address] [place] [address] pt1 Social History Tobacco Use Types Packs/Day [...] Y/N: Yes Provider name or facility name: [address] [place] [address] allergy Escort needed: Y/N: Yes Do you have a wheelchair: Y/N: No Visits: (5x month) documented in this encounter Plan of Treatment Upcoming Encounters Date Type Department Care Team (Late st Contact Info) Description 11/11/2025 10:00 AM EDT Office Visit [facility] ADULT DENTAL [address] [place] [address] Ryan, Lauren [address] [place] [address] documented as of this encounter Visit Diagnoses Not on filedocumented in this encounter Care Teams Cathead Worker Relationship Specialty Start Date End Date Liv New NP [address] [place] [address] PCP - General Family Medicine 02/29/24 documented as of this encounter
--- OUTSIDE RECORDS SUMMARY | 2025-07-11 07:51 | XMS_ITS | Encounter Summary ---
Author Organization [employer] Address [address] [facility] [address] 7t [place] [address] Care Team Providers Care Information Clerk Automobile Club Name Role Phone Liv New MARGARETTE Primary Care Provider [phone] Encounter Details Date Type Department Care Team (Latest Contact Info) Description 07/10/2025 Travel Social History Tobacco Use Types Packs/Day Years [...] Description 11/11/2025 10:00 AM EDT Office Visit [facility]ULT D[facility] [address] [place] [address] Luaren Davis [address] [place] [address] documented as of this encounter Visit Diagnoses Not on filedocumented in this encounter Care Teams Information Clerk Automobile Club Relationship Specialty Start Date End Date Liv New NP [address] [place] [address] PCP - General Family Medicine 02/29/24 documented as of this encounter
--- OUTSIDE RECORDS SUMMARY | 2025-07-11 07:51 | XMS_ITS | Encounter Summary ---
Author Organization [email or web address] Address [address] [facility] 7t [place] [address] Care Team Providers Care Global Engineering Manager Name Role Phone Liv New NP Primary Care Provider [phone] Reason for Visit * Reason Onset Date Comments Nurse Triage 07/10/2025 Encounter Details Date Type Department Care Team ([facility] st Contact Info) Description 07/10/2025 Telephone [facility] [address] [place], [place] [phone] Liv New NP [address] [place] [address] Nurse Triage Social History Tobacco Use Types Packs/Day Years [...] encounter Miscellaneous Notes * Telephone Encounter - Beverly Hinson RN - 07/10/2025 9:49 AM EST TC placed to patient [phone] via [employer] interpreters (Eloy #[id number]), patient reports she woke upthis morning and her face was red , burning and extremely itchy . Patient denies any recent newlotions , creams, perfumes, body sprays or medications. Patient denies any hives, pimples or bulls-eye patches. Patient denies any facial swelling, fevers, headaches or sore throat. Patient reports bu rning is worse when washing face. Patient scheduled for an appt today at 10:30am with MARK Madrigal. Patient agreeable to POC. Patient to f/u PRN. Protocol Used: Rash or Redness - Widespread (Adult) Protocol-Based Disposition: See in Office or Video Visit Today Video visit not offered Positive Triage Questions: * Severe itching * Patient wants to be seen * All higher-acuity triage questions were negative * Telephone Encounter - Herb Leyva - 07/10/2025 9:10 AM EST Symptom: Rash or Redness - Widespread Outcome: Schedule a same-day appointment or talk to a nurse or provider today Reason: Caller denied all higher acuity questions The caller accepted this outcome. Pt states that her face is red and it itches a lot. Contact pt at [phone] documented in this encounter Plan of Treatment Upcoming Encounters Date Type Department Care Team (Late st Contact Info) Description 11/11/2025 10:00 AM EDT Office Visit [facility] [address] [place] [address] Lauren Davis [address] [place] [address] documented as of this encounter Visit Diagnoses Not on filedocumented in this encounter Care Teams Global Engineering Manager Relationship Specialty Start Date End Date Liv New NP [address] [place] [address] PCP - General Family Medicine 02/29/24 documented as of this encounter
--- OUTSIDE RECORDS SUMMARY | 2025-07-11 07:51 | XMS_ITS | Encounter Summary ---
Author Organization [employer] Address [address] [facility] 7t [place] [address] Care Team Providers Care Steamer Operator Name Role Phone Liv New NP Primary Care Provider Reason for Visit * Reason Onset Date Comments PT-1 06/23/2025 Encounter Details Date Type Department Care Team ([facility] st Contact Info) Description 06/23/2025 Telephone [facility] MEDICINE [address] [place], [place] [phone] Liv New NP [address] [place] [address] PT-1 Social History Tobacco Use Types Packs/Day [...] name: Dr. Miguel Angel Daniels Facility Address: [address] [place] [address] Escort needed: Y/N: Yes Do you have a wheelchair: Y/N: No If yes- Manual or electric: N/A Visits: 3 times a month documented in this encounter Plan of Treatment Upcoming Encounters Date Type Department Care Team (Late st Contact Info) Description 11/11/2025 10:00 AM EDT Office Visit [facility] [address] [place] [address] Ryan, Lauren [address] [place] [address] documented as of this encounter Visit Diagnoses Not on filedocumented in this encounter Care Teams Steamer Operator Relationship Specialty Start Date End Date Liv New NP [address] [place] [address] PCP - General Family Medicine 02/29/24 documented as of this encounter
--- OUTSIDE RECORDS SUMMARY | 2025-07-11 07:51 | XMS_ITS | Encounter Summary ---
Author Organization [employer] [facility] Address [address] [facility] 7t [place] [address] Care Team Providers Care Cutting Inspector Name Role Phone Darvin Ferro MD Primary Care Provider Judy Perdue Primary Care Provider [phone] Liv New NP Primary Care Provider [phone] Encounter Details Date Type Department Care Team (Latest Contact Info) Description 10/01/2018 Abstract [facility] CONVERSIONS Dental, Provider, DDS Social History [...] Description 11/11/2025 10:00 AM EDT Office Visit [facility] ADULT DENTAL [address] [place] [address] Ryan, Lauren [address] [place] [address] documented as of this encounter Visit Diagnoses Not on filedocumented in this encounter Care Teams Cutting Inspector Relationship Specialty Start Date End Date Darvin Ferro MD PCP - General Family Medicine 06/13/19 07/25/22 Judy Mendez FNP [address] [place] [address] PCP - General Family Medicine 07/26/22 02/28/24 Liv New NP [address] [place] [address] PCP - General Family Medicine 02/29/24 documented as of this encounter
--- NOTE | 2025-07-11 08:01 | A.OFFVIS_ITS ---
Vital Signs 07/11/25 08:09 Height 5 ft 4 in Weight 175 lb 6 oz BMI 30.1 BP 100/72 Blood Pressure Location Lt brachial Position Sitting Pulse 68 Pulse Source Pulse Oximeter Pulse Oximetry (%) 100 Oxygen Delivery Method Room Air Intake Visit Reasons: joint pain Intake Note: Patient presents for joint pain follow up. Marriage And Family Therapist Required: Yes Marriage And Family Therapist Language: Contract Negotiation Specialist Services: Marriage And Family Therapist Present Marriage And Family Therapist Name: Milton [id number] Information Interpreted: non-clinical & clinical Allergies Penicillins Allergy (Severe, Verified 07/11/25 08:09) Shortness of Breath Medication List - Last Reconciled 07/11/25 by Bettina Madrigal MD albuterol sulfate 2.5 mg (3 mL) PO Q4H PRN albuterol sulfate 90 mcg/actuation (Ventolin HFA) 2 puffs PO Q6H PRN 30 days azelastine 2 sprays intranasal BID azithromycin 500 mg PO DAILY 5 days beclomethasone dipropionate 80 mcg/actuation (Qvar RediHaler) 2 inhalations PO BID benzonatate 200 mg PO BID PRN 30 days bupropion HCl XL 300 mg PO QAM bupropion HCl XL 150 mg PO QAM xlhdfhkcgs-hqjsshxgvpyob-jcce 50-300-40 mg (Fioricet) 1 cap PO Q4-6H PRN clonazepam 1 mg PO DAILY [cock up splint wear at night ] codeine-guaifenesin 10-100 mg/5 mL 10 mL PO Q6H PRN 10 days diphenhydramine HCl (Banophen) 25 mg PO DAILY PRN divalproex 500 mg PO BID epinephrine 0.3 mg (0.3 mL) IM DIRECTED famotidine 40 mg PO BEDTIME hydroxyzine pamoate 25 mg PO Q6H PRN ipratropium bromide 2 sprays intranasal TID PRN loratadine 10 mg PO DAILY lurasidone 80 mg PO QPM methylprednisolone (Medrol (Miki)) PO PER PKG DIR 6 days montelukast 10 mg PO BEDTIME nebulizers As directed omeprazole 20 mg PO DAILY 90 days ondansetron 4 mg PO Q8H PRN ondansetron 4 mg PO Q8H PRN tezepelumab-ekko (Tezspire) mg subcut tiotropium-olodaterol 2.5-2.5 mcg/actuation (Stiolto Respimat) 2 puffs inhalation DAILY 30 days triamcinolone acetonide 0.1% appl topical BID zolpidem ER 12.5 mg PO BEDTIME HPI Comments Details: Patient is a 49 old female with asthma, depression, GERD, and fibromyalgia here today for follow up Interval History: Patient last seen 02/28/[address] Rader - Not on any DMARDs - She states that she has in a flare-up. - She has diffuse pain everywhere - Conservative management Today - Not on any rheum medications - Complaining of lower back pain - This is new from her regular whole body pain - Has taken gabapentin in the past and found it helpful Rheumatologic History: Fibromyalgia Current Rheumatology Medication(s): [facility] Medical History Cough Fibromyalgia Sinusitis Asthma Chronic allergic rhinitis Surgical History History of 2 sections History of partial hysterectomy Family History Father Gout Cancer Arthritis of knee HTN (hypertension) Mother Rheumatoid arthritis Thyroid disease COPD (chronic obstructive pulmonary disease) Diabetes HTN (hypertension) Social History Alcohol intake: never Patient Tobacco Use Status: Never used Tobacco Current occupational status: disabled 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 Review of Systems Narrative Review of Systems Constitutional: Denies fever, chills, weight loss ENT: Denies vision changes, eye pain or eye redness, dental caries, dry mouth GI: Denies nausea, vomiting, diarrhea, abdominal pain, change in BM Pulm: Denies SOB, DYKES, hemoptysis, wheezing Cards: Denies chest pain, palpitations Skin: Denies Raynaud's, rash, nail changes, photosensitivity, WIRELESS CONSULTANT: Denies headaches, weakness, paresthesias, recurrent falls MSK: as per HPI All other systems reviewed and are unremarkable except noted above Physical Exam Exam Exam: Vital signs reviewed Physical Examination CONSTITUITIONAL Patient alert and cooperative. Well appearing and in no apparent painful distress MSK Hands * Right Hand: Able to make a fist. No swelling or tenderness to palpation of the MCPs, PIPs or DIPs. * Left Hand: Able to make a fist. No swelling or tenderness to palpation of the MCPs, PIPs or DIPs. Wrists * Right Wrist: Full ROM to flexion and extension. No swelling or TTP * Left Wrist: Full ROM to flexion and extension. No swelling or TTP Elbows * Right Elbow: Full ROM. No swelling or TTP. No TTP of the medial epicondyle. No TTP of the lateral epicondyle * Left Elbow: Full ROM. No swelling or TTP. No TTP of the medial epicondyle. No TTP of the lateral epicondyle Shoulders * Right shoulder: No swelling noted. No TTP of the AC joint. No TTP of the subacromial bursa. No TTP of the posterior shoulder * Left shoulder: No swelling noted. No TTP of the AC joint. No TTP of the subacromial bursa. No TTP of the posterior shoulder * Decreased ROM bilaterally, 2/2 tight muscles Hip bursa: No tenderness to palpation bilaterally Knees * Right knee: Full ROM. No swelling noted. No TTP of the knee joint line. No TTP of pes anserine bursa * Left knee: Full ROM. No swelling noted. No TTP of the knee joint line. No TTP of pes anserine bursa. Ankles * Right ankle: Good ankle dorsiflexion and plantar flexion. No swelling. No TTP of the ankle joint * Left ankle: Good ankle dorsiflexion and plantar flexion. No swelling. No TTP of the ankle joint Feet * Right foot: Negative squeeze test * Left foot: Negative squeeze test Tender points? * TTP of the bilateral trapezius * No tenderness to palpation of the bilateral supraspinatus, anterior costochondral junctions, bilateral suboccipital muscle insertions Spine * TTP elicited with central and paraspinal palpation of the muscles SKIN No rashes Results Reviewed Results Reviewed: Laboratory Tests 06/03/24 07/03/25 10:55 12:54 WBC 8.2 RBC 4.33 Hgb 12.6 Hct 39.3 Plt Count 229 Sodium 141 Potassium 4.4 Chloride 108 Carbon Dioxide 30 H BUN 14 Creatinine 0.78 AST 22 ALT 13 C-Reactive Protein < 0.10 Assessment & Plan Assessment & Plan (1) Fibromyalgia: Code(s): M79.7 - Fibromyalgia Category: Medical Plan: #Fibromyalgia Patient is a 49 year old female with fibromyalgia here today for follow up Continues to have widespread pain. Discussed trialing medications such as gabapentin. Patient states she has tried in the past and it was helpful. We will restart Plan - Restart gabapentin 300mg nightly - RTC 1 year or sooner (2) Lumbar spondylosis: Code(s): M47.816 - Spondylosis without myelopathy or radiculopathy, lumbar region Category: Medical Plan: #Low back pain Likely 2/2 degenerative disease Will check XRs Plan - XR L spine Plan I spent 20 minutes reviewing the record and labs, taking a history, examining the patient, discussing the treatment plan, ordering diagnostic work up and documenting in the medical record Medications: New gabapentin 300 mg PO BEDTIME 90 caps 3RF M79.7 - Fibromyalgia Discontinued codeine-guaifenesin 10-100 mg/5 mL Discontinued Reason: Doctor's Order 10 mL PO Q6H 10 days PRN 300 mL 0RF cough Coding Level of Care Code Est Pt Level 3 (96874) Diagnoses Fibromyalgia M79.7 Lumbar spondylosis M47.816
[2025-07-11 08:09] VITALS: BP 100/72; PULSE 68; O2SAT 100; BMI 30.1
== END 2025-07-11 08:34 | disposition home or self-care (01) ==
LOC: HO.RHES 07:49
PROVIDERS: Visit Provider Student in an Organized Health Care Education/Training Program
DX: M79.7 Fibromyalgia (principal); M47.816 Spondylosis without myelopathy or radiculopathy, lumbar region
CPT/HCPCS: 99213

== ENCOUNTER → 2025-07-11 07:49 | Outpatient (BNVA) | payer MEDICAID, SELFPAY | PROVIDERS: Visit Provider Student in an Organized Health Care Education/Training Program | DX: M79.7 Fibromyalgia (principal) | CPT/HCPCS: 99212 ==

== ENCOUNTER 2025-08-29 09:44 | Outpatient (AMB) | payer MEDICAID, SELFPAY ==
--- NOTE | 2025-08-29 09:46 | MHC.OFFVIS ---
Vital Signs 08/29/25 09:47 Height 5 ft 4 in Weight 174 lb 2.643 oz BMI 29.9 BP 110/64 Blood Pressure Location Lt brachial Position Sitting Pulse 90 Pulse Source Pulse Oximeter Pulse Oximetry (%) 96 Oxygen Delivery Method Room Air Intake Visit Reasons: Asthma Graduate Student Instructor Required: Yes Graduate Student Instructor Services: Graduate Student Instructor Offered & Declined Graduate Student Instructor Name: MD speaks luxembourgish Radiation Protection Specialist: Radiation Protection Specialist offered & declined Accompanied by: Self / Same As Patient Allergies Penicillins Allergy (Severe, Verified 08/29/25 09:49) Shortness of Breath HPI Comments Details: The patient is a 49 y/o woman with known history of asthma and chronic allergic rhinitis. She has significant nasal congestion moderate severity. She was evaluated by ENT for this ongoing significant issue. Did did not perform a laryngoscopy which would have been helpful. In the meantime she has been started on Xolair to see if this any improvement in the inflammation of her nasal turbinates. we have tried prescribing her Sudafed as a better disease decongestant, however, her insurance does not cover. I did find her a generic Sudafed that she can find for example at [employer] that have be reasonable for her to be able to buy [id number]. She should continue using the Sudafed or generic until I see her and couple months. In the meantime will see the effective Xolair. She does have an increased cough with clear mucus. She does get good response to her respiratory therapy at this time. 09/15/2023 the patient is here for a pulmonary follow-up visit. Her breathing has gotten worse since her QVAR has not been provided from the pharmacy. Apparently she needs a prior approval now after the year started. We did submitted and should be answered back in 24 hours. The meantime I did give the patient some prednisone in case her symptoms worsen she can always start that. She does continue to use the Stiolto. She also responded well to the triple inhaler in the past, Trelegy but was not cover. We can also send her back to [facility] to see if this covered now. She continues to have significant nasal congestion and difficulty breathing. She has been on the Tezspire now injection about 3 months. She has not seen any significant improvement of the breathing. She will follow-up with allergy in the next few months to see if his something she is going to continue. We talked about the importance. She is willing to try small dose Sudafed. Eighty be [id number] therefore I did give her the recommendation to either start with 30 mg 60 mg and just see if that provides some relief with her significant nasal congestion. She has been evaluated by ENT in the past and did did not want to intervene. 11/22/2023 the patient is here for a pulmonary follow-up visit. The patient has been complaining of worsening respiratory symptoms for last couple days. She had been doing well. She still complains of the chronic sinusitis. However, she did take the Sudafed finally but it caused some stomach upset so therefore she stopped it. It did clear some her sinuses however. The patient now is having some nasal congestion sore throat and worsening cough. She feels like she has a cold. Denies any joint pains or flu-like symptoms. She really does not want to get a swab done for the flu right now. Her respiratory exam is fairly good she does have diminished breath sounds with a prolonged expiratory phase. No significant wheezing. No crackles suggest pneumonia. Will go ahead and treat her for an upper airway respiratory illness. If the patient is no better she can take some prednisone but at this point she does not need it. She did have evaluation with allergy and immunology. The patient will undergo allergy testing soon. I did encourage him not to take the prednisone that she gets worse because is going to affect the results of her allergy testing. She continues on the biologic therapy once she has her testing completed she will talk to the advice clerk about any changes on her biologic regimen. 04/22/2024 the patient is here for a pulmonary follow-up visit. Overall she has been doing okay. She has been noticing worsening sinus congestion lately. She has been tolerating the Sudafed with good effect. Although she needs to buy it [id number] because is not covered by her insurance. She also started allergy shots. She is getting those every 2 weeks. She still continues with the biologic therapy, test prior. She will continue that at this time. She continues use her respiratory therapy. Otherwise she is without any new complaints. No recent imaging to review at this time. 08/16/2024 the patient is here for a pulmonary follow-up visit. She started developing worsening nasal congestion and postnasal drip. Cough is croupy in nature. She has been sick now for about a week. Denies any sick contacts. Denies any fevers or chills. She continues with her allergy shots in her asthma biologic therapy with her advice clerk. She continues on her respiratory therapy that is been working well. No significant wheezing on exam right now. No need for steroids. Will go ahead and treat her for a upper respiratory illness. If her symptoms worsen she will call back otherwise will follow-up in 3 months. 11/15/2024 the patient is here for a pulmonary follow-up visit. Overall the patient is doing a little bit better. She did start developing a cough nonproductive in nature the last few days. Ghae-ck-yihsaolr severity. Also has runny nose. In addition to that she did have a significant lower respiratory infection. Had a significant congested cough. We had [facility] prescription antibiotics for the however she was no better. She ended up getting a course of Levaquin in the definitely helped her breathing. She continues on the Tezspire. Continues with respiratory therapy. No recent imaging studies to review. Will prescribe her some Tessalon Perles for cough right now and some ipratropium nasal spray. If her symptoms do worsen she can start a culture Medrol and also doxycycline. 03/20/2025 the patient is here for a pulmonary follow-up visit. She continues to actually do fairly well. She has been on the allergy shots and also on the Tezspire. The therapy has been affecting beneficial. Her nasal congestion has improved dramatically. The patient also continues her respiratory therapy as prescribed. She continues to need her rescue inhaler but typically less than twice a week. She is more concerned about her son was diagnosed with a condition that has a see a specialist. But overall she is doing well. Will follow-up in 4 months. If she has any issues prior to this she will call for an earlier assessment. 06/25/2025 the patient is here for a sick visit. she has been complaining of worsening sinus pressure in the pain for the last 5 days. Prior to that she was doing okay. She continues on her allergy shots and also biologic therapies. Her respiratory therapy has been fairly effective recently. She denies fevers or chills. Does not feel like it is COVID. Denies any chest congestion. Mainly just sinus pressure. Moderate severity. Along with the headaches. Otherwise the patient is without any other complaints. Will go ahead and treat her for sinusitis and she will follow-up in 3-4 months. 08/29/2025 the patient is here for pulmonary follow-up visit. She is concerned she was exposed to individuals with flu. She did get the flu shot. But she is concerned because she is already getting some respiratory. She is going to monitor closely. If she worsens she can always get swab for the flu. I will make sure to send him medications the pharmacy. She continues use her respiratory therapy with good effect. She continues on biologic therapy with good effect. Nasal congestion appears to be stable at this time. Therefore I will send her medications to the pharmacy she will going to monitor her closely her symptoms. The patient will follow-up in the spring if any issues she can always call for further recommendations. 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 Review of Systems Const Denies night sweats ENT Denies change in voice, Denies lip swelling, Denies mouth pain, Reports nasal congestion, Reports nasal discharge, Reports nasal obstruction, Denies post nasal drip, Reports sinus pain, Reports sinus pressure and Denies tongue swelling Card Denies chest pain and Denies dyspnea on exertion Resp Reports chest congestion, Reports cough, Denies dyspnea on exertion and Reports wheezing GI Denies abdominal pain Musc Denies no additional complaints Neuro Denies Neuro-related abnormal movements Psych Denies no additional complaints Carlos/Lymph Denies easy bleeding and Denies lymphadenopathy Aller/Immun Denies lip swelling, Denies tongue swelling and Reports wheezing Physical Exam Vital Signs: Last Vital Signs Pulse 90 08/29/25 09:47 BP 110/64 08/29/25 09:47 Pulse Ox 96 08/29/25 09:47 Oxygen Delivery Method Room Air 08/29/25 09:47 BMI result Body Mass Index 29.9 Const General: comfortable Orientation/consciousness: patient oriented x3 Neck Neck: Yes normal visual inspection, Yes full ROM and Yes no lymphadenopathy Chest Chest palpation & inspection: normal inspection of the chest Resp Effort & Inspection: normal respiratory effort and No prolonged expiratory phase Auscultation: clear to auscultation bilaterally and no wheezes Cardio Rate: regular rate Rhythm: regular rhythm Heart sounds: S1 normal heart sound present and S2 normal heart sound present GI Palpation (GI): Soft to palpation and nontender Auscultation: normal bowel sounds Skin General skin exam: rashes and/or lesions noted Neuro General: patient oriented x3 Assessment & Plan Assessment & Plan (1) Asthma: Code(s): J45.909 - Unspecified asthma, uncomplicated Category: Medical Qualifiers: Asthma complication type: uncomplicated Asthma persistence: persistent Asthma severity: moderate Qualified Code(s): J45.40 - Moderate persistent asthma, uncomplicated (2) Chronic allergic rhinitis: Code(s): J30.9 - Allergic rhinitis, unspecified Category: Medical (3) Sinusitis: Code(s): J32.9 - Chronic sinusitis, unspecified Category: Medical Qualifiers: Chronicity: chronic Sinusitis location: unspecified location Qualified Code(s): J32.9 - Chronic sinusitis, unspecified (4) Cough: Code(s): R05.9 - Cough, unspecified Category: Medical Qualifiers: Cough type: chronic Qualified Code(s): R05.3 - Chronic cough Plan Continue Tezspire with Allergy Allergy shots every 2 weeks Mucinex DM continue reflux diet continue Pepcid Continue Stiolto continue QVAR Continue Singulair Benadryl as needed F/U 3-4 months Medications: New doxycycline hyclate 100 mg PO BID 20 caps 0RF 10 days oseltamivir (Tamiflu) 75 mg PO Q12H 10 caps 0RF 5 days prednisone Take 2 tabs daily x 5 days, then 1 tablet daily x 5 days 20 mg PO DAILY 15 tabs 0RF 10 days Coding Level of Care Code Est Pt Level 4 (34153) Diagnoses Moderate persistent asthma without complication J45.40 Asthma complication type: uncomplicated Asthma persistence: persistent Asthma severity: moderate Chronic allergic rhinitis J30.9 Chronic sinusitis, unspecified location J32.9 Chronicity: chronic Sinusitis location: unspecified location Chronic cough R05.3 Cough type: chronic Time Spent (min) 16
[2025-08-29 09:47] VITALS: BP 110/64; PULSE 90; O2SAT 96; BMI 29.9
--- OUTSIDE RECORDS SUMMARY | 2025-08-29 09:47 | XMS_ITS | Encounter Summary ---
Author Organization [facility] Address [address] [place] [address] Care Team Providers Care Correctional Security Officer Name Role Phone Darvin Ferro MD Primary Care Provider Judy Perdue Primary Care Provider [phone] Liv New NP Primary Care Provider [phone] Encounter Details Date Type Department Care Team (Latest Contact Info) Description 10/01/2018 Abstract [facility] CONVERSIONS Dental, Provider, DDS Social [...] Team (Late st Contact Info) Description 11/11/2025 10:15 AM EDT Office Visit [facility] ADULT DENTAL [address] [place] [address] Ryan, Lauren [address] [place] [address] documented as of this encounter Visit Diagnoses Not on filedocumented in this encounter Care Teams Correctional Security Officer Relationship Specialty Start Date End Date Darvin Ferro MD PCP - General Family Medicine 06/13/19 07/25/22 Judy Mendez FNP [address] [place] [address] PCP - General Family Medicine 07/26/22 02/28/24 Liv New NP [address] [place] [id number] PCP - General Family Medicine 02/29/24 documented as of this encounter
--- OUTSIDE RECORDS SUMMARY | 2025-08-29 09:47 | XMS_ITS | Encounter Summary ---
Author Organization [facility] Address [address] [place] [address] Care Team Providers Care Truck Dock Material Mover Name Role Phone Judy MendezP Primary Care Provider Liv New NP Primary Care Provider [phone] Reason for Visit * Reason Onset Date Comments PT1 01/17/2023 Encounter Details Date Type Department Care Team ([facility] st Contact Info) Description 01/17/2023 Telephone [facility] MEDICINE [address] [place] [address] Judy Mendez FNP [address] [place] [address] PT1 Social History Tobacco Use Types Packs/Day [...] denial letter via mail. PT-1 Request Number [id number] is Authorized - [facility] [address] [facility] [address] PT-1 Request Number [id number] is Pending - [facility] Special[facility] Offices [address] [place] [address] [place] [id number] * Telephone Encounter - Yolanda Cobian - 01/17/2023 2:11 PM EDT PT1- Location: [address] [place] [address] [place] [id number] Phone: Date: 01/26/23 Time: 10:45 am Instructional Technology Coach Needed: yes Wheel Chair Access? No PT1- Location: [address] [place] [address] Date: 02/22/23 Time: 10:15 am Instructional Technology Coach Needed: yes Wheel Chair Access? No documented in this encounter Plan of Treatment Upcoming Encounters Date Type Department Care Team (Late st Contact Info) Description 11/11/2025 10:15 AM EDT Office Visit [facility] ADULT DENTAL [address] [place] [address] Lauren Davis [address] [place] [address] documented as of this encounter Visit Diagnoses Not on filedocumented in this encounter Care Teams Truck Dock Material Mover Relationship Specialty Start Date End Date Judy Mendez FNP [address] [place] [address] PCP - General Family Medicine 07/26/22 02/28/24 Liv New NP [address] [place] [address] PCP - General Family Medicine 02/29/24 documented as of this encounter
--- OUTSIDE RECORDS SUMMARY | 2025-08-29 09:47 | XMS_ITS | Clinical Summary ---
Author Organization [facility] Prior to 07/05/2024 Address [address] [place] [address] Care Team Providers Care Hog Room Supervisor Name Role Phone Community, Pcp Primary Care Provider Unavailabl e Allergies Active Allergy Reactions Severity Noted Date Comments Penicillins 08/13/2010 Tape 09/12/2016 Medications Medication Sig Dispensed Refills Start Date End Date Status albuterol (PROVENTIL) (2.5 MG/3ML) 0.083% nebulizer solution Take 1 Vial by nebulization every 4 hours as needed. 0 Active amitriptyline (ELAVIL) 100 MG tablet Take 100 mg by mouth at bedtime. 0 Active mometasone (ASMANEX) 220 MCG/INH inhaler Inhale 2 Puffs into the lungs daily. 0 Active venlafaxine (EFFEXOR-XR) 150 MG 24 hr capsule Take 150 mg by mouth daily. 0 Active EPINEPHrine 0.3 MG/0.3ML Solution Auto-injector Inject as directed. 0 Ac tive fluticasone 50 MCG/ACT nasal spray 2 Sprays by Each Nare route daily. 0 Active loratadine (CLARITIN) 10 MG tablet Take 10 mg by mouth daily. 0 Active montelukast (SINGULAIR) 10 MG tablet Take 10 mg by mouth at bedtime. 0 Active omeprazole (PRILOSEC) 20 MG capsule Take 20 mg by mouth daily. 0 Active sumatriptan (IMITREX) 100 MG tablet Take 100 mg by mouth daily as needed. May repeat dose once after 2 hours, if needed. 0 Active Temazepam 15 MG Cap Take by mouth. 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 1 Inhaler 11 02/26/2018 Active Tiotropium [place] Monohydrate (SPIRIVA RESPIMAT) 2.5 MCG/ACT Aero Soln Inhale 2.5 mcg into the lungs daily for 30 days. 1 Inhaler 11 04/30/2018 Active azelastine (ASTELIN) 0.1 % nasal sprayIndications:No n-seasonal allergic rhinitis, unspecified trigger 2 Sprays by Each Nare route 2 times daily for 30 days. Use in each nostril as directed 120 [place] 11 08/13/2018 Active predniSONE (DELTASONE) 20 MG tablet Take 2 tabs by mouth daily x 5 days, then 1 tab daily x 5 days 15 Tab 0 11/23/2018 Active budesonide (PULMICORT) 0.5 MG/2ML nebulizer solutionIndications :Asthma-chronic obstructive pulmonary disease overlap syndrome (HCC),Non-seasonal allergic rhinitis, unspecified trigger,Gastroesoph ageal reflux disease without esophagitis Take 2 mL by nebulization 2 times daily for 30 days. 60 Ampule 11 02/25/2019 Active Beclomethasone Dipropionate (QNASL) 80 MCG/ACT Aero SolnIndications:Ast hma-chronic obstructive pulmonary disease overlap syndrome (HCC),Non-seasonal allergic rhinitis, unspecified trigger,Gastroesoph ageal reflux disease without esophagitis 2 Sprays by Nasal route daily for 30 days. 1 Inhaler 11 02/25/2019 Active Active Problems Problem Noted Date Allergic rhinitis 07/02/2017 Asthma-chronic obstructive pulmonary dis ease overlap syndrome 07/02/2017 Eczema 03/28/2017 Gastroesophageal reflux disease 07/19/20 13 Migraine headache 08/09/2012 Immunizations Name Administration Dates Next Due Influenza (>6 Months) Split Preservative Free Social History Tobacco Use Types Packs/Day Years Used Date Smoking Tobacco: Never Smokeless Tobacco: Never Alcohol Use Standard Drinks/Week Comments No 0 (1 standard drink = 0.6 oz pur e alcohol) Sex Assigned at Date Recorded Not on file Last Filed Vital Signs Vital Sign Reading Time Taken Comments Blood Pressure 100/70 02/25/2019 9:47 AM EDT Pulse 70 02/25/2019 9:47 AM EDT Temperature - - Respiratory Rate 18 02/25/2019 9:47 AM EDT Oxygen Saturation 99% 02/25/2019 9:47 AM EDT Inhaled Oxygen Concentration - - Weight 69.1 kg (152 lb 6.4 oz) 02/25/2019 9:47 A M EDT Height 160 cm (5' 3 ) 08/13/2018 1:26 PM EST Body Mass Index 27 08/13/2018 1:26 PM EST Plan of Treatment Health Maintenance Due Date Last Done Comments Covid-19 Vaccine (#1) 05/27/1976 DTAP/TDAP/TD (1 - Tdap) 11/24/1994 PNEUMOCOCCAL VACCINE FOR HIGH RISK PATIENTS (#1) 11/24 CHOLESTEROL SCREENING 1995 CERVICAL CANCER SCREENING 11/24/1996 BASELINE HEALTH EXAM 40-64 2015 MAMMOGRAM 2015 BMI CHECK/ADVISE 09/04/2024 INFLUENZA (#1) 2025 10/10/2016 Care Teams Hog Room Supervisor Relationship Specialty Start Date End Date Community, Pcp PCP - General Internal Medicine 09/27/17
--- OUTSIDE RECORDS SUMMARY | 2025-08-29 09:47 | XMS_ITS | Encounter Summary ---
Author Organization [employer] Address [address] [place] [address] 7t [place] [address] Care Team Providers Care Hat And Cap Sewer Name Role Phone Judy MendezP Primary Care Provider [phone] Liv New NP Primary Care Provider [phone] Reason for Visit * Reason Onset Date Comments TP appt 01/04/2023 Encounter Details Date Type Department Care Team (Late Contact Info) Description 01/04/2023 Telephone [facility] MEDICINE [address] [place] [address] Judy Mendez FNP [address] [place] [address] TP appt Social History Tobacco Use Types [...] appt with provider. Please contact pt at [phone] [place] Islander Speaker documented in this encounter Plan of Treatment Upcoming Encounters Date Type Department Care Team (Late Contact Info) Description 11/11/2025 10:15 AM EDT Office Visit [facility] ADULT DENTAL [address] [place] [address] Lauren Davis [address] [place] [address] documented as of this encounter Visit Diagnoses Not on filedocumented in this encounter Care Teams Hat And Cap Sewer Relationship Specialty Start Date End Date Judy Mendez FNP [address] [place] [address] PCP - General Family Medicine 07/26/22 02/28/24 Liv New NP [address] [place] [address] PCP - General Family Medicine 02/29/24 documented as of this encounter
--- OUTSIDE RECORDS SUMMARY | 2025-08-29 09:48 | XMS_ITS | Encounter Summary ---
Author Organization [employer] Address [address] [facility] 7 [place] [address] Care Team Providers Care Curator Of Education Name Role Phone Judy Mendez Primary Care Provider [phone] Liv New NP Primary Care Provider [phone] Reason for Visit * Reason Onset Date Comments PT1 03/15/2023 Encounter Details Date Type Department Care Team ([facility] st Contact Info) Description 03/15/2023 Telephone [facility] MEDICINE [address] [place] [address] Judy Mendez FNP [address] [place] [address] PT1 Social History Tobacco Use Types Packs/Day [...] Pt called in again regarding PT1 for [facility] Allergy / [address] [place] [address] insurance keeps denying pt1 because they want to know why she gets seen at emergency room physician . * Telephone Encounter - Brandon Abad [...] pt requesting PT1 Form: Name of facility: [facility] Specialty: Allergy Location: [address] [place] [address] Date: 04/03/2023 Time: 9:30 am fax: n/a Phone: n/a wheelchair: no [employer] Supervisor: Yes All Future Appt's documented in this encounter Plan of Treatment Upcoming Encounters Date Type Department Care Team (Late st Contact Info) Description 11/11/2025 10:15 AM EDT Office Visit [facility] ADULT DENTAL [address] [place] [address] Ryan, Lauren [address] [place] [address] documented as of this encounter Visit Diagnoses Not on filedocumented in this encounter Care Teams Curator Of Education Relationship Specialty Start Date End Date Judy Mendez FNP [address] [place] [address] PCP - General Family Medicine 07/26/22 02/28/24 Liv New NP [address] [place] [address] PCP - General Family Medicine 02/29/24 documented as of this encounter
--- OUTSIDE RECORDS SUMMARY | 2025-08-29 09:48 | XMS_ITS | Encounter Summary ---
Author Organization [employer] Address [address] [facility] 7t [place] [address] Care Team Providers Care Education Dean Name Role Phone Liv New NP Primary Care Provider [phone] Reason for Visit * Reason Onset Date Comments PT-1 05/30/2024 Encounter Details Date Type Department Care Team ([facility] st Contact Info) Description 05/30/2024 Telephone [facility] MEDICINE [address] [place], [place] [phone] Liv New NP [address] [place] [address] PT-1 Social History Tobacco Use Types Packs/Day [...] Y/N: Yes Provider name or facility name: [facility] Facility Address: [address] [place] [address] Escort needed: Y/N: Yes Do you have a wheelchair: Y/N: No If yes- Manual or electric: no Visits: 4 to five times a month Patient calling requesting PT1 Home Address verified: Y/N: Yes Provider name or facility name: [facility] Facility Address: [address] [place], [place] Escort needed: Y/N: Yes Do you have a wheelchair: Y/N: No If yes- Manual or electric: no Visits: 6 documented in this encounter Plan of Treatment Upcoming Encounters Date Type Department Care Team ([facility] Contact Info) Description 11/11/2025 10:15 AM EDT Office Visit [facility] ADULT DENTAL [address] [place] [address] Ryan, Lauren [address] [place] [address] documented as of this encounter Visit Diagnoses Not on filedocumented in this encounter Care Teams Education Dean Relationship Specialty Start Date End Date Liv New NP [address] [place] [address] PCP - General Family Medicine 02/29/24 documented as of this encounter
--- OUTSIDE RECORDS SUMMARY | 2025-08-29 09:48 | XMS_ITS | Encounter Summary ---
Author Organization [employer] Address [address] [facility] 7t [place] [address] Care Team Providers Care Field Account Manager Name Role Phone Liv New NP Primary Care Provider [phone] Reason for Visit * Reason Onset Date Comments PT-1 06/23/2025 Encounter Details Date Type Department Care Team ([facility] st Contact Info) Description 06/23/2025 Telephone [facility] MEDICINE [address] [place], [place] [phone] Liv New NP [address] [place] [address] PT-1 Social History Tobacco Use Types Packs/Day [...] Dr. Miguel Angel Daniels Facility Address: [address] [place] [address] Escort needed: Y/N: Yes Do you have a wheelchair: Y/N: No If yes- Manual or electric: N/A Visits: 3 times a month documented in this encounter Plan of Treatment Upcoming Encounters Date Type Department Care Team (Late st Contact Info) Description 11/11/2025 10:15 AM EDT Office Visit [facility] ADULT DENTAL [address] [place] [address] Ryan Lauren [address] [place] [address] documented as of this encounter Visit Diagnoses Not on filedocumented in this encounter Care Teams Field Account Manager Relationship Specialty Start Date End Date Liv New NP [address] [place] [address] PCP - General Family Medicine 02/29/24 documented as of this encounter
--- OUTSIDE RECORDS SUMMARY | 2025-08-29 09:48 | XMS_ITS | Encounter Summary ---
Author Organization [employer] Address [address] [facility] 7t [place] [address] Care Team Providers Care Muck Boss Name Role Phone JeisonLiv rueda MARGARETTE Primary Care Provider [phone] Reason for Visit * Reason Onset Date Comments no show reschedule 08/21/2024 Encounter Details Date Type Department Care Team ([facility] st Contact Info) Description 08/21/2024 Telephone [facility] ADULT DENTAL [address] [place] [address] Simin Banda no show reschedule Social History [...] Description 11/11/2025 10:15 AM EDT Office Visit [facility] ADULT DENTAL [address] [place] [address] Ryan Lauren [address] [place] [address] documented as of this encounter Visit Diagnoses Not on filedocumented in this encounter Care Teams Muck Boss Relationship Specialty Start Date End Date Liv New NP [address] [place] [address] PCP - General Family Medicine 02/29/24 documented as of this encounter
--- OUTSIDE RECORDS SUMMARY | 2025-08-29 09:48 | XMS_ITS | Encounter Summary ---
Author Organization [employer] Address [address] [facility] 7t [place] [address] Care Team Providers Care Power Station Operator Name Role Phone Judy Mendez Primary Care Provider [phone] Liv New NP Primary Care Provider [phone] Encounter Details Date Type Department Care Team (Late st Contact Info) Description 04/24/2023 Orders Only [facility] MED & PEDS [address] [place], [place] [phone] Judy Mendez FNP [address] [place] [address] Fibromyalgia (Primary Dx) Social History Tobacco Use [...] Description 11/11/2025 10:15 AM EDT Office Visit [facility] ADULT DENTAL [address] [place] [address] Lauren Davis [address] [place] [address] documented as of this encounter Visit Diagnoses Diagnosis Fibromyalgia- Primary Unspecified myalgia and myositis documented in this encounter Care Teams Power Station Operator Relationship Specialty Start Date End Date Judy Mendez FNP [address] [place] [address] PCP - General Family Medicine 07/26/22 02/28/24 Liv New NP [address] [place] [address] PCP - General Family Medicine 02/29/24 documented as of this encounter
--- OUTSIDE RECORDS SUMMARY | 2025-08-29 09:48 | XMS_ITS | Clinical Summary ---
Author Organization [employer] Address [address] [facility] 7t [place] [address] Care Team Providers Care Test Engineering Technician Name Role Phone Shaq Livshiva PFEIFFER Primary Care Provider [phone] Allergies Active Allergy Reactions Criticality Noted Date [...] mg by mouth at bedtime. 04/23/20 Active hydrOXYzine HCl (Atarax) 25 MG tabletIndications :Facial dermatitis Take 1 tablet (25 mg) by mouth if needed in the morning, at noon, and at bedtime for itching for up to 90 doses. 90 tablet 07/10/20 25 Active hydrocortisone 0.5 % creamIndications: Facial dermatitis Apply topically 2 times daily. 15 g 07/10/20 25 Active Active Problems Problem Noted Date [...] Monday, instructed to return for evaluation on Monday morning. - Risks and side effects: Discussed potential [...] Description 07/10/2025 10:30 AM EST Office Visit [facility] MEDICINE [address] [place] [address] Claudia Madrigal FNP Facial dermatitis (Primary Dx) 07/10/2025 Travel 07/10/2025 Telephone [facility] MEDICINE [address] [place] [address] Liv New NP Nurse Triage 07/03/2025 Orders Only GENERIC EXTERNAL DATA DEPARTMENT Provider, Generic External Data 06/24/2025 Patient Outreach [facility] [address] [place] [address] Liv New NP Care Coordination ([facility] outreach for SDOH PT-1 and food needs-referral completed /) 06/23/[address] [address] Liv New, MARGARETTE PT-1 05/30/2025 Patient Outreach [address] [address] Liv Nwe NP Care Coordination ([facility] outreach for SDOH PT-1 and food needs-referral completed /) 05/30/[address] [address] Liv New, MARGARETTE pt1 from Last 3 Months Immunizations Immunization Administration [...] Description 11/11/2025 10:15 AM EDT Office Visit [facility] ADULT DENTAL [address] [place] [address] Lauren Davis [address] [place] [address] Health Maintenance Due Date Last Done Comments [...] 2025 04/06/2021, 03/17/2021 Influenza Vaccine (#1) 2025 , 06/27/2019, 10/10/2016, Additional history exists SDOH Screening 05/27/2025 05/27/2024 Dental Prophylaxis 11/05/2025 05/07/2025, 1 09/10/2013, 08/23/2013, Additional history exists Zoster Vaccines (1 of 2) 11/24/2025 Dental X-Ray: Bitewings 05/08/2026 05/07/20, 07/11/2014, 05/06/2010 Tobacco Screening 07/10/2026 07/10/2025 Mammogram 12/16/2026 12/16/2024, 03/0 12/2021, 09/28/2020, Additional [...] AUTO DIFFERENTIAL Routine 07/03/2025 12:54 PM EDT PROPHYLAXIS - ADULT Routine 05/07/2025 9 :00 [...] Blood Count 8.2 4.8 - 10.8 X10*3/uL [facility] Red Blood Count 4.33 4.20 - 5.50 X10*6/uL [facility] Hemoglobin 12.6 12.0 - 16.0 g/dl [facility] Hematocrit 39.3 37.0 - 47.0 % [facility] Mean Corpuscular Volume 90.8 80.0 - 98.0 fL [facility] Mean Corpuscular Hemoglobin 29.1 27.0 - 33.0 pg [facility] Mean Corpuscular HGB Conc 32.1 31.0 - 35.0 g/dl [facility] Red Cell Distribution Width 11.9 11.0 - 16.0 % [facility] Platelet Count 229 160 - 400 X10*3/uL [facility] Mean Platelet Volume 9.5 9.4 - 12.3 fL [facility] Neutrophils Percent Auto 78.7(H) 45 - 73 % [facility] Imm Gran Pct Auto 0.1 0.0 - 0.4 % [facility] Lymphocytes Percent Auto 16.4(L) 20 - 40 % [facility] Monocytes Percent Auto 3.8 2 - 11 % [facility] Eosinophils Percent Auto 0.5 0 - 4 % [facility] Basophils Percent Auto 0.5 0 - 2 % [facility] NRBC Pct Auto 0.0 0.0 - 0.2 /100WBC [facility] Neutrophils Absolute Auto 6.5 2.0 - 8.3 x10*3/uL [facility] Imm Gran Abs Auto 0.01 0.00 - 0.03 X10*3/uL [facility] Lymphocytes Absolute Auto 1.3 1.2 - 4.9 X10*3/uL [facility] Monocytes Absolute Auto 0.3 0.1 - 1.2 X10*3/uL [facility] Eosinophils Absolute Auto 0.0 0.0 - 0.4 X10*3/uL [facility] Basophils Absolute Auto 0.0 0.0 - 0.2 X10*3/uL [facility] NRBC Abs Auto 0.000 0.0 - 0.012 X10*3/uL [facility] 07/03/2025 12:5 4 PM EDT 07/03/2025 12:57 PM EDT us Generic External Data Provider LAB BLOOD ORDERAB LES Final Result [facility] [address] [place] [address] [phone] * (ABNORMAL) Comprehensive Metabolic Panel (07/03/2025 12:54 PM EDT) Sodium 141 135 - 145 mmol/L [facility] Potassium 4.4 3.3 - 5.1 mmol/L [facility] Chloride 108 96 - 108 mmol/L [facility] Carbon Dioxide 30(H) 22 - 29 mmol/L [facility] Anion Gap 7(L) 12 - 20 [facility] Urea Nitrogen (BUN) 14 9 - 16 mg/dL [facility] Creatinine, Serum 0.78 0.5 - 1.4 mg/dL [facility] Creatinine Clr Calc Pharmacy 87.6 [facility] Comment:Provided height and weight: 162.56 cm,77.111 kg.eGFR (calculated from the MDRD study equation) and eCrCl(calculated from the Cockcroft-Gault equation) are based ondifferent parameters and may not yield comparable results.If eCrCl result is absurd, please check patient'sheight/weight. Estimated Glomerular Filt Rate >60 [facility] Comment:Chronic Kidney Disea se: Estimated GFR < 60 mL/min/1.76h2Yyjgri Kidney Disease: Estimated GFR < 15 mL/min/1.73m2 Glucose 94 60 - 115 mg/dL [facility] Calcium 9.2 8.4 - 10.2 mg/dL [facility] Bilirubin, Total 1.0 0.0 - 1.0 mg/dL [facility] Aspartate Amino Transferase 22 5 - 31 U/L [facility] Alanine Aminotransferase 13 0 - 31 U/L [facility] Total Protein 6.9 6.5 - 8.0 g/dL [facility] Albumin Level 4.2 3.5 - 5.0 g/dL [facility] Alkaline Phosphatase 73 39 - 117 U/L [facility] 07/03/2025 12:5 4 PM EDT 07/03/2025 12:57 PM EDT us Generic External Data Provider LAB BLOOD ORDERAB LES Final Result [facility] [address] [place] [address] [phone] * BI Mammogram Screening Tomosynthesis Bilateral (12/16/2024 9:10 AM EDT) Anatomical Region Laterality Modality Breast Bilateral Mammography 12/16/2024 9:10 AM EDT Narrative 12/24/2024 3:02 PM EDT Maryanne [facility] [address] [place], [place] [address] Mammography Report Signed Patient: Faye Kerr MR# : [id number] : 1975 Acct:[id number] Age/Sex: 49 / F ADM Date: 12/16/24 Loc: HO.MAMMO Attending Dr: Liv New RETAIL ASSOCIATE Ordering Physician: Liv New RETAIL ASSOCIATE Results: 1Negati ve Date of Service: 12/16/24 Follow Up: 1 Year From [facility] Mammogram Procedure(s): MM tomosynthesis screening BI Accession Number(s): [id number] cc: Liv New RETAIL ASSOCIATE EXAMINATION: MM SCREENING DIGITAL BREAST TOMOSYNTHESIS, BILATERAL [...] 12/24/24 1459 DD/ 0910 TD/TT: 12/16/24 0920 Fence Builder: Procedure Note Donotuseinterpreter, Image - 04/22/2025 [facility] [address] [place] [address] Mammography Report Signed Patient: Shea Kerr# : [id number] : 1975Acct:[id number] Age/Sex: 49 / FADM Date: 12/16/24 Loc: HO.MAMMO Attending Dr: Liv New RETAIL ASSOCIATE Ordering Physician: Liv New NPResults: 1Negati ve Date of Service: 12/16/24Follow Up: 1 Year From Orig ina Mammogram Procedure(s): MM tomosynthesis screening BI Accession Number(s): [id number] cc: Liv New RETAIL ASSOCIATE EXAMINATION: MM SCREENING DIGITAL BREAST TOMOSYNTHESIS, BILATERAL [...] Eastman DO in OV> 12/24/24 1459 DD/ TD/TT: 12/16/24 09 Fence Builder: Liv New NP IMG BI PROCEDURES Final Result from Last 3 Months or Most Recently Relevant to Health Maintenance Insurance Care Teams Test Engineering Technician Relationship Specialty Start Date End Date Liv New NP [address] [place] [phone] PCP - General Family Medicine 02/29/24
--- OUTSIDE RECORDS SUMMARY | 2025-08-29 09:48 | XMS_ITS | Encounter Summary ---
Author Organization [employer] Address [address] [facility] 7t [place] [address] Care Team Providers Care Mash Tub Cooker Operator Name Role Phone Liv New NP Primary Care Provider [phone] Reason for Visit * Reason Onset Date Comments pt1 05/30/2025 Encounter Details Date Type Department Care Team ([facility] st Contact Info) Description 05/30/2025 Telephone [facility] MEDICINE [address] [place], [place] [phone] Liv New NP [address] [place] [address] pt1 Social History Tobacco Use Types Packs/Day [...] Y/N: Yes Provider name or facility name: [address] [place] [address] allergy Escort needed: Y/N: Yes Do you have a wheelchair: Y/N: No Visits: (5x month) documented in this encounter Plan of Treatment Upcoming Encounters Date Type Department Care Team (Late st Contact Info) Description 11/11/2025 10:15 AM EDT Office Visit [facility] ADULT DENTAL [address] [place] [address] Ryan, Lauren [address] [place] [address] documented as of this encounter Visit Diagnoses Not on filedocumented in this encounter Care Teams Mash Tub Cooker Operator Relationship Specialty Start Date End Date Liv New NP [address] [place] [address] PCP - General Family Medicine 02/29/24 documented as of this encounter
== END 2025-08-29 10:07 | disposition home or self-care (01) ==
LOC: HO.HPS 09:44
PROVIDERS: Visit Provider Hospitalist
DX: J45.40 Moderate persistent asthma, uncomplicated (principal); J30.9 Allergic rhinitis, unspecified; J32.9 Chronic sinusitis, unspecified; R05.3 Chronic cough
CPT/HCPCS: 99214

== ENCOUNTER → 2025-08-29 09:44 | Outpatient (BNVA) | payer MEDICAID, SELFPAY | PROVIDERS: Visit Provider Hospitalist | DX: J45.40 Moderate persistent asthma, uncomplicated (principal); J30.9 Allergic rhinitis, unspecified; J32.9 Chronic sinusitis, unspecified; R05.3 Chronic cough; Z79.899 Other long term (current) drug therapy | CPT/HCPCS: 99212 ==